=== PATIENT | female | born 1940 | race Caucasian/White ===

== ENCOUNTER 2018-02-11 01:52 | Outpatient (CLI) | payer MEDICARE, SELFPAY ==
[2018-02-11 09:44] LABS: ALT 25 U/L (12-78); AST 18 U/L (15-37); Albumin 3.9 g/dL (3.4-5.0); Alkaline Phosphatase 52 U/L (46-116); Anion Gap 8.3 mmol/L (3-11); BUN 28 mg/dL (7-18); Bilirubin, Total 0.5 mg/dL (0.2-1.0); CO2 30.7 mmol/L (21.0-32.0); CREATININE 1.33 mg/dL (0.55-1.02); Calcium 9.4 mg/dL (8.5-10.1); Chloride 98 mmol/L (98-107); Estimated GFR 38.89 (mL/min/1.73m2); Glucose 79 mg/dL (70-100); Potassium 3.8 mmol/L (3.5-5.1); Sodium 137 mmol/L (136-145); Total Protein 6.2 g/dL (6.4-8.2)
== END 2018-02-11 02:12 ==
PROVIDERS: PCP Internal Medicine; Visit Provider Nurse Practitioner
DX: I42.0 Dilated cardiomyopathy (principal); I50.22 Chronic systolic (congestive) heart failure
CPT/HCPCS: 36415; 80053

== ENCOUNTER 2018-06-04 02:13 | Outpatient (CLI) | payer MEDICARE, SELFPAY | END 2018-06-04 02:33 | PROVIDERS: PCP Internal Medicine; Visit Provider Internal Medicine Rheumatology | DX: M1A.9XX1 Chronic gout, unspecified, with tophus (tophi) (principal) | CPT/HCPCS: 36415; 84550 ==

== ENCOUNTER 2018-06-25 07:05 | Outpatient (CLI) | payer MEDICARE, SELFPAY ==
--- NOTE | 2018-06-24 15:30 | DI.RAD_ITS ---
SYMPTOM/DIAGNOSIS: INJURY, RT SHOULDER PAIN, M25.511 RIGHT SHOULDER: The bony structures are normally mineralized. There are mild degenerative changes involving the glenohumeral and AC joint. There is a region of apparent undersurface acromial spurring. There is no evidence of a fracture or dislocation. If there is further specific clinical question regarding the status of this patient, then further assessment with MRI could be considered.
== END 2018-06-25 07:25 ==
PROVIDERS: PCP Internal Medicine; Visit Provider Internal Medicine
DX: M25.511 Pain in right shoulder (principal); M19.011 Primary osteoarthritis, right shoulder
CPT/HCPCS: 73030

== ENCOUNTER 2018-06-29 07:02 | Outpatient (CLI) | payer MEDICARE, SELFPAY ==
[2018-06-29 08:21] LABS: Abs Immature Grans 0.01 k/cumm (0.0-0.09); Absolute Basophil Count 0.02 k/cumm (0.0-0.2); Absolute Eosinophil Count 0.22 k/cumm (0.0-0.7); Absolute Lymphocyte Count 2.42 k/cumm (1.2-3.4); Absolute Neutrophil Count 3.05 k/cumm (1.2-6.7); Basophils % 0.3; Eosinophils % 3.4; HCT 39.1 % (36.0-46.0); HGB 12.8 g/dL (12.0-15.5); Immature Grans % 0.2; Lymphocytes % 37.1; Mean Corp. HGB Concentration 32.7 g/dL (32.0-36.0); Mean Corpuscular Hemoglobin 31.6 pg (27.0-33.0); Mean Corpuscular Volume 96.5 fL (80-95); Mean Platelet Volume 10.2 fL (8.0-11.0); Monocytes % 12.3; Neutrophils % 46.7; Platelet Count 130 x1000/uL (130-400); RBC 4.05 m/cumm (4.00-5.20); RBC Distribution Width 13.2 % (11.7-14.6); White Blood Cell Count 6.52 k/cumm (4.4-10.8)
[2018-06-29 08:59] LABS: Cholesterol 233 mg/dL (50-200); HDL Cholesterol 62 mg/dL (40-60); LDL CHOLESTEROL 139 mg/dL (<100); Triglyceride 175 mg/dL (30-150)
== END 2018-06-29 07:22 ==
PROVIDERS: PCP Internal Medicine; Visit Provider Internal Medicine
DX: E78.5 Hyperlipidemia, unspecified (principal); R79.89 Other specified abnormal findings of blood chemistry
CPT/HCPCS: 36415; 80061; 83721; 85025

== ENCOUNTER 2018-10-09 07:56 | Outpatient (CLI) | payer MEDICARE, SELFPAY ==
[2018-10-09 09:19] LABS: Uric Acid 7.4 mg/dL (2.6-6.0)
== END 2018-10-09 08:16 ==
PROVIDERS: PCP Internal Medicine; Visit Provider Internal Medicine
DX: M1A.9XX1 Chronic gout, unspecified, with tophus (tophi) (principal); Z51.81 Encounter for therapeutic drug level monitoring
CPT/HCPCS: 36415; 84550

== ENCOUNTER 2019-01-06 15:59 | Outpatient (CLI) | payer MEDICARE, SELFPAY ==
--- NOTE | 2019-01-06 15:15 | DI.RAD_ITS ---
EXAM: XR ELBOW LT COMPLETE AND LT SHOULDER INDICATION: pain, R52. COMPARISON: XR SHOULDER LT COMPLETE 2+V from 01/06/2019 XR SHOULDER LT COMPLETE 2+V from 01/06/2019 TECHNIQUE: 2D digital imaging was performed. FINDINGS: Three views were obtained. There is prominent anterior and posterior humeral fat pad consistent with an elbow joint effusion or hemarthrosis. No acute fracture identified. There are osteophytes of me dial and lateral epicondyles. No other bony abnormality seen. Five views of the shoulder were obtained. There are moderate hypertrophic changes of the acromioclavi cular joint and there is a prominent inferior acromial spur raising the possibility of supraspinatus impingement. Cartilaginous joint space of the glenohumeral joint appears fairly well maintained. Mild marginal osteophyte formation of the glenoid and humeral head noted IMPRESSION: DJD of glenohumeral and acromioclavicular joints, question supraspinatus impingement.
== END 2019-01-06 16:19 ==
PROVIDERS: PCP Internal Medicine; Visit Provider Internal Medicine
DX: M25.512 Pain in left shoulder (principal); M25.522 Pain in left elbow; M19.012 Primary osteoarthritis, left shoulder; M25.422 Effusion, left elbow
CPT/HCPCS: 73030; 73080

== ENCOUNTER 2019-01-25 10:21 | Emergency (ER) | payer MEDICARE, SELFPAY ==
[2019-01-25] VITALS (28 sets, daily range): BP systolic 101–119; BP diastolic 33–70; PULSE 54–92; RESP 11–30; TEMP 36.5–37.1; O2SAT 92–99
--- NOTE | 2019-01-25 10:35 | W.ED.GENAD ---
Discharge Plan Disposition Patient Disposition: HOME Condition: Good Discharge Details Chief Complaint: Abd Prob Clinical Impression: Abdominal pain, Nausea, Thrombocytopenia Primary Care Provider: Lilibeth Tate ED Provider: Tawanna Trjeo Smackover Meds and New Rx's Prescriptions: New ondansetron 4 mg tablet,disintegrating 4 mg PO Q6H PRN (Reason: nausea and vomiting) Qty: 10 RF: 0 Continued amoxicillin 500 mg capsule 2,000 mg PO PRN RF: 0 prednisone 5 mg tablet 5 mg PO DAILY Qty: 90 RF: 2 carvedilol [Coreg] 6.25 MG tablet 6.25 mg PO BID Qty: 180 RF: 4 aspirin [Aspir-81] 81 MG tablet,delayed release (DR/EC) 81 mg PO DAILY RF: 0 spironolactone [Aldactone] 25 MG tablet 25 mg PO DAILY Qty: 90 RF: 4 acetaminophen [Tylenol] 325 MG tablet 325 mg PO PRN RF: 0 ezetimibe [Zetia] 10 MG tablet 10 mg PO DAILY RF: 0 Entresto 1 EACH tablet 1 ea PO BID RF: 0 furosemide [Lasix] 40 mg tablet 40 mg PO 1-2 daily Qty: 180 RF: 4 cholecalciferol (vitamin D3) [Vitamin D3] 2,000 unit Tablet 2,000 unit PO DAILY RF: 0 Discontinued febuxostat [Uloric] 80 mg tablet 80 mg PO DAILY RF: 0 No Action febuxostat [Uloric] 80 mg tablet 80 mg PO DAILY RF: 0 esomeprazole magnesium [Nexium] 40 mg capsule,delayed release(DR/EC) 40 mg PO DAILY Qty: 30 RF: 2 ranitidine HCl 300 mg capsule 300 mg PO QHS Qty: 30 RF: 1 sucralfate 100 mg/mL suspension 5 ml PO QID Qty: 420 RF: 2 Discharge Instructions Instructions: Acute Nausea and Vomiting (ED), Abdominal Pain (ED) Additional Instructions: Encourage hydration. You may use Tylenol as needed for discomfort. You may use the Zofran as prescribed to help with any recurrent nausea. Advance diet as tolerated but these begin with bland foods. Please call primary care today to schedule appointment for Friday. Dr. Coleman and I discussed possible source and agree that you should hold off on your febuxostat until being reevaluated. If you develop increased pain, fever/chills, inability stay hydrated or other new/worsening symptoms please seek care urgently once again. Referrals: Lilibeth Tate MD [Primary Care Provider] - Discharge Data Discharge Date/Time-TO BE ENTERED AT DEPARTURE: 01/25/19 16:28 Medical Decision Making Patient 78-year-old female, accompanied by friend, with chief complaint of abdominal discomfort for the past week. She has history of cardiomyopathy, hyperlipidemia, kidney disease, ICD placed, tophaceous gout and tubular adenoma. States that she has had some generalized abdominal irritation after increasing her dosing of febuxostat 2 months ago. However, the past week she is noted to be worse than typical and never treated over the past 3 days her bloating and abdominal discomfort has been quite bothersome. No change in her diet. She has noted increased bilateral lower extremity edema but associates this with increased salt intake. She does report that she has not been following her dietary restrictions recently. She denies any fevers or chills. Surgical history pertinent for cholecystectomy and appendectomy. No change in bowel habits. Normal bowel movement yesterday. No blood in the. No change in urinary habits. No CVA tenderness. On exam, she is resting comfortably. She has bilateral upper quadrants of her abdomen is area of discomfort but no peritoneal findings are noted on exam. When she does feel bloated, she is not tympanitic in order to appreciate any bloating on physical exam. No CVA tenderness. Minimal lower extremity edema. At this point, her symptoms seem to be stemming around increase in medication. We will review the medication to see if this may be the source of her discomfort. Will obtain baseline labs. Labs reviewed. Patient is not anemic. Her platelet count is slightly low at 105. This is new for the patient. Her creatinine is 1.41 but this is not atypical. Urine without significant abnormality. Plan for CT imaging. She is now reporting that her pain is actually worse than she had initially reported and she is currently nauseated. Will give Zofran to help with symptomatic management and plan for imaging. CT reviewed by radiologist: FINDINGS: The lung bases are unremarkable. Pacing wires are identified in place. The heart is not enlarged. The liver is intact. The patient is status post cholecystectomy. The pancreas, spleen, kidneys and adrenals are unremarkable. There is no evidence of bowel obstruction. There is no evidence of an acute appendix. The bladder is normal. The reproductive organs as visualized are intact. There are small bilateral fat-containing inguinal hernias. Also a small umbilical hernia contains a small loop of colon; there is no evidence of strangulation. Surgical clips in this region would be consistent with a previous hernia repair. There is atherosclerotic change involving the aorta, the celiac and superior mesenteric arteries. There is no evidence of an aneurysm. Degenerative changes are demonstrated in the spine. No acute abnormality is seen. IMPRESSION: No acute abnormality is seen. Note is made of a small umbilical hernia, which contains a loop of colon with no evidence of strangulation. As the patient believes that this is associated with the increase in her febuxostat, plan to consult with PCP about reducing the dosing again. She had good relief from the zofran and will continue her on this medication. Consulted with Dr. Polo who advised that the patient skip the medication for the next 2 days and follow up with her at that time. Is able to the patient's primary care who advised patient had been on this medication historically had similar symptoms when the medication was increased at that time. She advised actually holding medication altogether until she can reevaluate the patient in 2 days time. I discussed this plan with the patient. Encourage hydration. She is given strict return precautions. We will continue with Zofran to help with any recurrence of her nausea or vomiting. Primary care is advises that she has multiple appointments available in 2 days and is asked the patient call to schedule for a time. All of her questions and concerns were addressed and patient is in agreement this plan. HPI General Mode of arrival: ambulatory. Date/Time Provider Initiated Documentation: 01/25/19 10:34. Limitations to Documentation: no limitations. Information obtained by: patient and RN notes reviewed. History of Present Illness 78 year old F presents to the emergency department with the chief complaint of upper abdominal pain and bloating, described as moderate, with intensity rated at 3. Quality is described as aching, and is localized to the abdomen. Patient reports no radiation. Patient started experiencing this week(s) (1) and it has been constant. No relieving factors improve symptom(s), No exacerbating factors reported . Patient notes denies chest pain, cough, diaphoresis, fever/chills, headaches, loss of appetite, nausea/vomiting, rash, shortness of breath and weakness. Patient did receive the following treatments prior to arrival, none Related Data Home Medications Medication Instructions Recorded Confirmed aspirin [Aspir-81] 81 mg PO DAILY tab-cap 08/21/12 01/27/19 carvedilol [Coreg] 6.25 mg PO BID #180 tab-cap 08/21/12 01/27/19 spironolactone [Aldactone] 25 mg PO DAILY #90 tab-cap 08/21/12 01/27/19 acetaminophen [Tylenol] 325 mg PO PRN 08/22/12 01/27/19 Entresto 1 ea PO BID 07/29/16 01/27/19 ezetimibe [Zetia] 10 mg PO DAILY tab-cap 07/29/16 01/27/19 furosemide 40 mg tablet 40 mg PO 1-2 daily #180 tab-cap 02/24/18 01/27/19 amoxicillin 500 mg capsule 2,000 mg PO PRN cap 12/02/18 01/27/19 prednisone 5 mg tablet 5 mg PO DAILY #90 tab-cap 12/02/18 01/27/19 cholecalciferol (vitamin D3) 2,000 unit PO DAILY 01/25/19 01/27/19 [Vitamin D3] ondansetron 4 mg PO Q6H PRN #10 tab 01/25/19 01/27/19 esomeprazole magnesium 40 mg 40 mg PO DAILY #30 cap 01/27/19 01/27/19 capsule,delayed release febuxostat 80 mg tablet 80 mg PO DAILY 01/27/19 01/27/19 ranitidine HCl 300 mg capsule 300 mg PO QHS #30 cap 01/27/19 01/27/19 sucralfate 100 mg/mL oral 5 ml PO QID #420 ml 01/27/19 01/27/19 suspension Previous Rx's Medication Instructions Recorded furosemide 40 mg tablet 40 mg PO 1-2 daily #180 tab-cap 02/24/18 prednisone 5 mg tablet 5 mg PO DAILY #90 tab-cap 12/02/18 ondansetron 4 mg PO Q6H PRN #10 tab 01/25/19 esomeprazole magnesium 40 mg 40 mg PO DAILY #30 cap 01/27/19 capsule,delayed release ranitidine HCl 300 mg capsule 300 mg PO QHS #30 cap 01/27/19 sucralfate 100 mg/mL oral 5 ml PO QID #420 ml 01/27/19 suspension Allergies Allergy/AdvReac Type Severity Reaction Status Date / Time allopurinol Allergy Intermediate Verified 01/27/19 15:08 Gqeeync-Pek-Pgn Reductase AdvReac Severe Muscle pain Verified 01/27/19 15:08 Inhibitor codeine AdvReac Intermediate HALLUCINATI Verified 01/27/19 15:08 ONS General Stated Complaint: Abd Prob NICOLE: 3 Review of Systems Constitutional Constitutional: Reports as per HPI, Denies chills, Denies fatigue, Denies fever(s) and Denies headache(s) ENT Ears, Nose, Mouth, and Throat: Denies headache(s) Cardiovascular Cardiovascular: Reports as per HPI, Denies chest pain and Denies dyspnea Respiratory Respiratory: Reports as per HPI, Denies cough and Denies dyspnea Gastrointestinal Gastrointestinal: Reports as per HPI Musculoskeletal Musculoskeletal: Reports as per HPI and Denies back pain Integumentary/Breasts Skin/Breast: Reports as per HPI and Denies rash Neurologic Neurologic: Reports as per HPI and Denies headache(s) Endocrine Endocrine: Denies fatigue [facility] Medical History Seborrheic keratoses (Acute) Surgical History Appendectomy (~1972) Cholecystectomy herniography x 2 Replacement of total knee joint Family History Mother , OLD AGE at age 98. Heart disease Father , 62 Heart disease Stroke Sister Heart disease CHF Neoplasm OVARIAN Sister , 72 CHF (congestive heart failure) Sister Diabetes Depression Stroke Brother Hyperlipidemia Colon cancer Brother Colon cancer Brother , HEART PROBLEMS at age 81. Heart disease CHF (congestive heart failure) Hypertension Maternal Grandfather , reaction to aspirin at age 71. Asthma Paternal Grandfather Heart disease Maternal Grandmother , Ruptured appendix at age 63. Ruptured appendix Paternal Grandmother , Infection s/p surgery at age 44. No problems noted. Son Essential hypertension Hyperlipidemia Son Essential hypertension Hyperlipidemia Parkinson disease Son Essential hypertension Hyperlipidemia Son No problems noted. Son Myocardial infarction Daughter No problems noted. Social History Smoking/Tobacco Use Status: Never Alcohol Intake: never Drug use: Never Substance use type: does not use Caregiver/Support person: No Household members: spouse and children Pets and animals: No Sexually active: No Current gender identity: decline to answer What is your relationship status?: How often do you talk on the phone with friends or family?: three or more times per week How often do you get together with friends or relatives?: never How often do you attend mormonism or jehovah's witness services?: decline to answer Do you belong to any clubs or organized social groups?: decline to answer Panel score (0-1 are the most socially isolated patients): 2 What type of physical activity do you participate in: none Duration: decline to answer Frequency: decline to answer Geri/Mormonism: Restorationism Special geri needs: No Seatbelt use: always Drive intox or ride w/intox skidder driver: No Do you feel safe at home: Yes Do you feel safe in your relationship?: Yes Additional Social history: lives with friend daughter nearby Exam Const General: cooperative, healthy appearing, comfortable, no acute distress and well developed Nutritional Appearance: well nourished and overweight Orientation: alert and awake HENRI Head: normal to inspection Mouth: moist mucous membranes Resp Effort & Inspection: normal respiratory effort, able to speak in complete sentences and no respiratory distress Auscultation: clear to auscultation bilaterally, no rales, no rhonchi and no wheezes Cardio Rate: regular rate Rhythm: regular rhythm Heart Sounds: S1 normal and S2 normal GI Inspection: normal to inspection, no abdominal wall ecchymosis, no edema, non-distended, no incisions and obesity Palpation: soft, no hepatosplenomegaly, no aortic enlargement, not firm, no guarding, no hernias, no masses, not rigid, no splenomegaly, tender in the LUQ and in the RUQ; Katz's sign negative and with no rebound tenderness and No ascites Percussion: normal to percussion Auscultation: normal bowel sounds Back/Spine/Pelvis Back: no CVA tenderness Skin General skin exam: no rashes or lesions noted Trauma: no lacerations or abrasions Neuro General: alert and awake Cognition: normal cognition Speech: speech normal Gait: normal gait Extrem General: normal to inspection, normal capillary refill, no joint enlargement, no pedal edema, no calf tenderness and normal gait Psych Appearance: grossly normal and well kempt Mental Status: mental status grossly normal Speech and Movement: speech and movement normal Course Vital Signs Vital signs: Vital Signs Temperature 36.5 C 01/25/19 10:29 Pulse 92 H 01/25/19 10:29 Respiratory Rate 20 01/25/19 10:29 Blood Pressure 116/70 01/25/19 10:29 Pulse Oximetry 99 01/25/19 10:29 Temperature 36.5 C 01/25/19 10:29 Temperature Source Skin 01/25/19 10:29 Pulse 92 H 01/25/19 10:29 Respiratory Rate 20 01/25/19 10:29 Blood Pressure 116/70 01/25/19 10:29 Pulse Oximetry 99 01/25/19 10:29 Oxygen Delivery Method Room Air 01/25/19 10:29 Oxygen Flow Rate 0 01/25/19 10:29 Pain Level 3 01/25/19 10:29
[2019-01-25] MEDS: Normal Saline Flush 10 ML SYR IVP (10:50)
[2019-01-25] MEDS: Normal Saline 1,000 ML 125 ML IV (11:00)
[2019-01-25 11:04] LABS: Abs Immature Grans 0.07 k/cumm (0.0-0.09); Absolute Basophil Count 0.02 k/cumm (0.0-0.2); Absolute Lymphocyte Count 1.95 k/cumm (1.2-3.4); Absolute Monocyte Count 1.51 k/cumm (0.11-0.7); Basophils % 0.2; Eosinophils % 1.6; HGB 13.9 g/dL (12.0-15.5); Immature Grans % 0.6; Lymphocytes % 17.9; Mean Corp. HGB Concentration 33.1 g/dL (32.0-36.0); Mean Corpuscular Hemoglobin 31.5 pg (27.0-33.0); Mean Corpuscular Volume 95.2 fL (80-95); Mean Platelet Volume 10.3 fL (8.0-11.0); Monocytes % 13.8; Neutrophils % 65.9; Platelet Count 105 x1000/uL (130-400); RBC 4.41 m/cumm (4.00-5.20); RBC Distribution Width 13.5 % (11.7-14.6); White Blood Cell Count 10.91 k/cumm (4.4-10.8)
[2019-01-25 11:07] LABS: Absolute Eosinophil Count 0.17 k/cumm (0.0-0.7); Absolute Neutrophil Count 7.19 k/cumm (1.2-6.7)
[2019-01-25 11:16] LABS: ALT 19 U/L (14-59); AST 20 U/L (15-37); Albumin 3.8 g/dL (3.4-5.0); Alkaline Phosphatase 33 U/L (46-116); BUN 43 mg/dL (7-18); Bilirubin, Total 0.6 mg/dL (0.2-1.0); CREATININE 1.41 mg/dL (0.55-1.02); Calcium 9.5 mg/dL (8.5-10.1); Chloride 101 mmol/L (98-107); Estimated GFR 36.26 (mL/min/1.73m2); Glucose 74 mg/dL (70-100); Lipase 393 U/L (73-393); Potassium 3.8 mmol/L (3.5-5.1); Sodium 140 mmol/L (136-145); Total Protein 6.3 g/dL (6.4-8.2)
[2019-01-25 11:26] LABS: Diff Comment Diff Reviewed; RBC Morphology Normal
[2019-01-25 12:05] LABS: Bilirubin Negative (Negative); Blood Negative (Negative); Clarity Clear (Clear); Glucose Negative (Negative); Ketones Negative (Negative); Leukocyte Esterase Negative (Negative); Nitrite Negative (Negative); Urobilinogen 0.2 EU/dL (Up TO 0.2); pH 5.5 (5-8)
--- NOTE | 2019-01-25 12:46 | DI.CT_ITS ---
EXAM: CT ABDOMEN PELVIS WO CLINICAL HISTORY: upper abdominal pain. TECHNIQUE: The examination was carried out without contrast enhancement. COMPARISON: No exams were available for comparison FINDINGS: The lung bases are unremarkable. Pacing wires are identified in place. The heart is not enlarged. T he liver is intact. The patient is status post cholecystectomy. The pancreas, spleen, kidneys and adr enals are unremarkable. There is no evidence of bowel obstruction. There is no evidence of an acute appendix. The bladder is normal. The reproductive organs as visualized are intact. There are small bilateral fat-containing inguinal hernias. Also a small umbilical hernia contains a small loop of co jes; there is no evidence of strangulation. Surgical clips in this region would be consistent with a previous hernia repair. There is atherosclerotic change involving the aorta, the celiac and superio r mesenteric arteries. There is no evidence of an aneurysm. Degenerative changes are demonstrated i n the spine. No acute abnormality is seen. IMPRESSION: No acute abnormality is seen. Note is made of a small umbilical hernia, which contains a loop of colo n with no evidence of strangulation.
[2019-01-25] MEDS: Ondansetron 4 MG/2 ML VIAL IVP (12:51)
[2019-01-25 16:28] LABS: NT-proBNP 2855 pg/mL
== END 2019-01-25 16:28 | disposition home or self-care (01) ==
PROVIDERS: Nurse Practitioner; Emergency Provider Physician Assistant; PCP Internal Medicine
DX: R10.11 Right upper quadrant pain (principal); R10.12 Left upper quadrant pain; R11.0 Nausea; D69.6 Thrombocytopenia, unspecified
CPT/HCPCS: 80053; 83690; 96374; 99285; 74176; 81003; 83880; 85025; 99284; J2405

== ENCOUNTER 2019-01-29 09:47 | Emergency (ER) | payer MEDICARE, SELFPAY ==
[2019-01-29] VITALS (31 sets, daily range): BP systolic 95–116; BP diastolic 42–58; PULSE 74–88; RESP 18–20; TEMP 36.3; O2SAT 85–97
[2019-01-29] MEDS: Normal Saline 1,000 ML 1000 ML IV (10:46)
--- NOTE | 2019-01-29 10:48 | ED.GENADUL_ITS ---
Discharge Plan Disposition Patient Disposition: HOME Condition: Improving Discharge Details Chief Complaint: Abd Prob Clinical Impression: Abdominal pain Primary Care Provider: Lilibeth Tate ED Provider: Skye Horta Home Meds and New Rx's Prescriptions: No Action amoxicillin 500 mg capsule 2,000 mg PO PRN RF: 0 prednisone 5 mg tablet 5 mg PO DAILY Qty: 90 RF: 2 esomeprazole magnesium [Nexium] 40 mg capsule,delayed release(DR/EC) 40 mg PO DAILY Qty: 30 RF: 2 ranitidine HCl 300 mg capsule 300 mg PO QHS Qty: 30 RF: 1 sucralfate 100 mg/mL suspension 5 ml PO QID Qty: 420 RF: 2 carvedilol [Coreg] 6.25 MG tablet 6.25 mg PO BID Qty: 180 RF: 4 aspirin [Aspir-81] 81 MG tablet,delayed release (DR/EC) 81 mg PO DAILY RF: 0 spironolactone [Aldactone] 25 MG tablet 25 mg PO DAILY Qty: 90 RF: 4 acetaminophen [Tylenol] 325 MG tablet 325 mg PO PRN RF: 0 ezetimibe [Zetia] 10 MG tablet 10 mg PO DAILY RF: 0 Entresto 1 EACH tablet 1 ea PO BID RF: 0 furosemide [Lasix] 40 mg tablet 40 mg PO 1-2 daily Qty: 180 RF: 4 cholecalciferol (vitamin D3) [Vitamin D3] 2,000 unit Tablet 2,000 unit PO DAILY RF: 0 ondansetron 4 mg tablet,disintegrating 4 mg PO Q6H PRN (Reason: nausea and vomiting) Qty: 10 RF: 0 Discharge Instructions Instructions: Abdominal Pain (ED) Additional Instructions: Continue your medications prescribed by your primary care doctor 2 days ago. Use nausea medication as prescribed as discussed. Continue to drink plenty of fluids by mouth. Return for any worsening, concerns or alarming symptoms sooner if needed. Your CT scan is reassuring as well as your lab evaluation. Follow-up with your primary care doctor as scheduled on Friday. Return to the emergency room sooner for any worsening or concerns if needed or for difficulty eating or drinking or signs of dehydration as discussed Medical Decision Making Is a very pleasant 78-year-old woman who returns to the emergency room for persistent abdominal pain. Patient reports increase in her abdominal pain in th e left upper quadrant. Patient reports she was seen in the emergency room 4 days ago for very similar complaints during which they evaluated her with CT as well as blood work. Ultimately, her abdominal pain was attributed to increase in her gout medication. Patient reports she has discontinued the gout medication and did follow-up with her primary care doctor. PCP began ulcer medications and reflux medications which she is been with compliant with for the last 2 days. Patient denies fever or chills. Denies chest pain, shortness of breath, difficulty breathing. Pain is worse with range of motion and attempting to eat. Patient reports nausea and dry heaving for the last few days 2-3 times a day does feel mildly dehydrated. Patient does have nausea medication at home which she has not been taking. Denies abdominal distention. Does report mild decrease in bowel movements in the last 3 days yet has had less p.o. intake. Mild fatigue. We will repeat patient CT with IV contrast as her initial CT study was done Noncon given her kidney function. Discussed patient's current renal function with my attending who does feels appropriate to perform her CT with IV contrast. Labs evaluated including repeat CBC, CMP and lipase. Will add troponin to be sure there is no elevation of her troponin today. Patient's EKG is quite reassuring. Normal rate and sinus rhythm. Normal IL in terval and QTc. No ischemic changes noted on EKG. Reviewed with my attending Dr. Man CT scan ultimately reveals Note is again made of pacer wires in the heart and epicardium. Lung bases are clear. Large hiatal hernia noted. Small fat containing umbilical hernia with knuckle of unobstructed transverse colon. No change in appearance from examination of 01/25/2019. No evidence of bowel obstruction. Appendix not specifically visualized but there is no evidence of appendicitis. Diverticulosis noted without evidence of diverticulitis. Clinical Study Manager structures unremarkable. No free fluid in the peritoneal cavity. Abdominal aorta is of normal diameter. Adrenals and kidneys unremarkable. No urinary tract calcification or obstruction. Liver spleen and pancreas appear normal. Ga llbladder surgically removed. No biliary dilatation. No abdominal or pelvic adenopathy. Multiple midline anterior abdominal wall sutures noted. IMPRESSION: No evidence of acute intra-abdominal process. Lab work reassuring today. No leukocytosis. Platelets decreased yet improved from previous evaluation. Urinalysis does reveal trace leukocyte esterase without nitrites. Urine culture pending. On reevaluation patient reports her pain is significantly improved. Patient received IV fluid and does feel much better. On exam she does have very mild persistent left upper quadrant pain but her exam is again significantly improved. Patient feels comfortable for discharge home at this time. Patient was offered admission to the hospital given this is her second evaluation in the emergency room this week for similar complaints but she does not feel she needs admission to the hospital at this time. She does have follow-up with her PCP planned for Friday. She has appropriate nausea medication at home. The patient was stable and requested discharge. Prior to discharge, my usual and customary return precautions were reviewed with the patient - this included follow-up ins tructions and reasons to return to the Emergency Department if conditions worsens, does not improve as expected, or other new concerns arise. HPI General Date/Time Provider Initiated Documentation: 01/29/19 09:48 . HPI Narrative: Is a 78-year-old lady who returns to the emergency room after having evaluation 4 days ago for persistent left-sided abdominal pain. Patient reports left-sided abdominal pain which is becoming increasingly intense. Patient reports nausea and dry heaving for the last few days which has persisted. Patient was seen in the emergency room recently underwent CT as well as labs no clear identifiable intra-abdominal process noted with Noncon CT. Patient had increased her gout medication which was considered a possible etiology of her symptoms, that medication has been discontinued. Patient reports after discontinuing the medication no significant improvement in her symptoms. She does report worsening abdominal pain, mild fatigue. Denies headache or dizziness. Patient denies fever or chills. Patient denies back pain associated. Denies any urin todd urgency, frequency or dysuria. Patient does report mild constipation for the last few days but has had decrease in appetite. Pain does wax and wane but in the last few days does not resolve. Worse with range of motion and change in position. Improved with supine position. Denies chest pain, difficulty breathing shortness of breath or wheezing. Was seen by cardiology in the last few days, no new acute concerns per her make up man at that time. Related Data Home Medications Medication Instructions Recorded Confirmed aspirin [Aspir-81] 81 mg PO DAILY tab-cap 08/21/12 01/29/19 carvedilol [Coreg] 6.25 mg PO BID #180 tab-cap 08/21/12 01/29/19 spironolactone [Aldactone] 25 mg PO DAILY #90 tab-cap 08/21/12 01/29/19 acetaminophen [Tylenol] 325 mg PO PRN 08/22/12 01/29/19 Entresto 1 ea PO BID 07/29/16 01/29/19 ezetimibe [Zetia] 10 mg PO DAILY tab-cap 07/29/16 01/29/19 furosemide 40 mg tablet 40 mg PO 1-2 daily #180 tab-cap 02/24/18 01/29/19 amoxicillin 500 mg capsule 2,000 mg PO PRN cap 12/02/18 01/29/19 prednisone 5 mg tablet 5 mg PO DAILY #90 tab-cap 12/02/18 01/29/19 cholecalciferol (vitamin D3) 2,000 unit PO DAILY 01/25/19 01/29/19 [Vitamin D3] ondansetron 4 mg PO Q6H PRN #10 tab 01/25/19 01/29/19 esomeprazole magnesium 40 mg 40 mg PO DAILY #30 cap 01/27/19 01/29/19 capsule,delayed release ranitidine HCl 300 mg capsule 300 mg PO QHS #30 cap 01/27/19 01/29/19 sucralfate 100 mg/mL oral 5 ml PO QID #420 ml 01/27/19 01/29/19 suspension Previous Rx's Medication Instructions Recorded furosemide 40 mg tablet 40 mg PO 1-2 daily #180 tab-cap 02/24/18 prednisone 5 mg tablet 5 mg PO DAILY #90 tab-cap 12/02/18 ondansetron 4 mg PO Q6H PRN #10 tab 01/25/19 esomeprazole magnesium 40 mg 40 mg PO DAILY #30 cap 01/27/19 capsule,delayed release ranitidine HCl 300 mg capsule 300 mg PO QHS #30 cap 01/27/19 sucralfate 100 mg/mL oral 5 ml PO QID #420 ml 01/27/19 suspension Allergies Allergy/AdvReac Type Severity Reaction Status Date / Time allopurinol Allergy Intermediate Verified 01/29/19 09:56 Opsasgc-Ish-Xes Reductase AdvReac Severe Muscle pain Verified 01/29/19 09:56 Inhibitor codeine AdvReac Intermediate HALLUCINATI Verified 01/29/19 09:56 ONS General Stated Complaint: Abd Prob NICOLE: 3 Review of Systems All systems reviewed & are unremarkable except as noted in HPI and below Constitutional Constitutional: Denies chills, Reports fatigue, Denies fever(s) and Denies headache(s) ENT Ears, Nose, Mouth, and Throat: Denies headache(s) Cardiovascular Cardiovascular: Denies chest pain and Denies syncope Gastrointestinal Gastrointestinal: Reports abdominal pain, Reports constipation, Reports cramping, Denies loose stools, Reports nausea and Reports vomiting Genitourinary Genitourinary: Denies dysuria and Denies urinary urgency Neurologic Neurologic: Denies syncope and Denies headache(s) Endocrine Endocrine: Reports fatigue PFSH Family History Mother , OLD AGE at age 98. Heart disease Father , 62 Heart disease Stroke Sister Heart disease CHF Neoplasm OVARIAN Sister , 72 CHF (congestive heart failure) Sister Diabetes Depression Stroke Brother Hyperlipidemia Colon cancer Brother Colon cancer Brother , HEART PROBLEMS at age 81. Heart disease CHF (congestive heart failure) Hypertension Maternal Grandfather , reaction to aspirin at age 71. Asthma Paternal Grandfather Heart disease Maternal Grandmother , Ruptured appendix at age 63. Ruptured appendix Paternal Grandmother , Infection s/p surgery at age 44. No problems noted. Son Essential hypertension Hyperlipidemia Son Essential hypertension Hyperlipidemia Parkinson disease Son Essential hypertension Hyperlipidemia Son No problems noted. Son Myocardial infarction Daughter No problems noted. Social History Smoking/Tobacco Use Status: Never Alcohol Intake: never Drug use: Never Substance use type: does not use Caregiver/Support person: No Household members: spouse and children Pets and animals: No Sexually active: No Current gender identity: decline to answer What is your relationship status?: How often do you talk on the phone with friends or family?: three or more times per week How often do you get together with friends or relatives?: never How often do you attend buddhist or yarsani services?: decline to answer Do you belong to any clubs or organized social groups?: decline to answer Panel score (0-1 are the most socially isolated patients): 2 What type of physical activity do you participate in: none Duration: decline to answer Frequency: decline to answer Geri/Yazdanism: Episcopal Special geri needs: No Seatbelt use: always Drive intox or ride w/intox transport truck driver: No Do you feel safe at home: Yes Do you feel safe in your relationship?: Yes Additional Social history: lives with friend daughter nearby Exam Narrative Exam Narrative: CONST: Healthy appearing patient, in no acute distress. Well hydrated. Alert and alert. HENMT: Head nomocephalic, normal to inspection. Atraumatic. Hearing grossly normal. Mildly dry mucous membranes. No pharyngeal erythema EYES: General normal appearance. Alignment normal. Eyelids normal. Conjunctiva normal. NECK: Normal visual inspection. FROM. No lymphadenopathy. Trachea midline. No Midline tenderness. CHEST: Normal insepection of the chest. RESP: Normal respiratory effort. Speaking full sentences. No cough. No wheezing. No retractions. Clear to auscaltation. Breath sound equal and present bilaterally. CARDIO: No JVD. Normal PMI. Regular Rate. Regular Rhythm. Normal peripheral pulses. GI: Normal inspection of abdomen. No distension. Soft. Bowel sounds present in all 4 quadrants. Mild abdominal pain with palpation of the left upper quadrant. No rebound. No gaurding. MUSCULOSKELETAL: Normal Gait. FROM of all extremities. Distal neurovascularly intact. Sensation intact distally. SKIN: Normal. Dry. No rashes. NEURO: Alert and awake. Speech clear. PSYCH: Normal affect. Cooperative. Course Vital Signs Vital signs: Vital Signs Temperature 36.3 C L 01/29/19 09:52 Pulse 83 01/29/19 09:52 Respiratory Rate 18 01/29/19 09:52 Blood Pressure 99/51 L 01/29/19 09:52 Pulse Oximetry 95 01/29/19 09:52 Temperature 36.3 C L 01/29/19 09:52 Temperature Source Skin 01/29/19 09:52 Pulse 83 01/29/19 09:52 Respiratory Rate 18 01/29/19 09:52 Respiratory Effort 01/29/19 09:57 Blood Pressure 99/51 L 01/29/19 09:52 Pulse Oximetry 95 01/29/19 09:52 Oxygen Delivery Method Room Air 01/29/19 09:52 Oxygen Flow Rate 0 01/29/19 09:52 Pain Level 8 01/29/19 09:57
[2019-01-29 11:04] LABS: Abs Immature Grans 0.03 k/cumm (0.0-0.09); Absolute Basophil Count 0.02 k/cumm (0.0-0.2); Absolute Eosinophil Count 0.12 k/cumm (0.0-0.7); Absolute Lymphocyte Count 1.24 k/cumm (1.2-3.4); Absolute Monocyte Count 0.73 k/cumm (0.11-0.7); Absolute Neutrophil Count 6.34 k/cumm (1.2-6.7); Basophils % 0.2; Eosinophils % 1.4; HCT 41.6 % (36.0-46.0); HGB 13.8 g/dL (12.0-15.5); Immature Grans % 0.4; Lymphocytes % 14.6; Mean Corp. HGB Concentration 33.2 g/dL (32.0-36.0); Mean Corpuscular Hemoglobin 31.3 pg (27.0-33.0); Mean Corpuscular Volume 94.3 fL (80-95); Mean Platelet Volume 10.1 fL (8.0-11.0); Monocytes % 8.6; Neutrophils % 74.8; Platelet Count 113 x1000/uL (130-400); RBC 4.41 m/cumm (4.00-5.20); White Blood Cell Count 8.48 k/cumm (4.4-10.8)
[2019-01-29 11:12] LABS: PTT Activated 24.5 sec (21.0-31.4); Prothrombin Time 10.2 sec (9.3-11.0)
[2019-01-29 11:20] LABS: ALT 27 U/L (14-59); AST 19 U/L (15-37); Albumin 3.6 g/dL (3.4-5.0); Alkaline Phosphatase 33 U/L (46-116); Anion Gap 8.3 mmol/L (3-11); BUN 32 mg/dL (7-18); Bilirubin, Total 0.7 mg/dL (0.2-1.0); CO2 30.7 mmol/L (21.0-32.0); CREATININE 1.55 mg/dL (0.55-1.02); Calcium 9.3 mg/dL (8.5-10.1); Chloride 98 mmol/L (98-107); Estimated GFR 32.51 (mL/min/1.73m2); Glucose 105 mg/dL (70-100); Potassium 3.9 mmol/L (3.5-5.1); Sodium 137 mmol/L (136-145); Total Protein 6.2 g/dL (6.4-8.2)
[2019-01-29 11:21] LABS: Troponin I < 0.05 ng/mL (0.00-0.06)
--- NOTE | 2019-01-29 11:58 | DI.CT_ITS ---
EXAM: CT ABDOMEN PELVIS W CLINICAL HISTORY: abdominal pain, LUQ TECHNIQUE: CT examination of the abdomen pelvis was performed with bolus infusion of 97 cc of Omnipa que 350. COMPARISON: CT ABDOMEN PELVIS WO from 01/25/2019 FINDINGS: Note is again made of pacer wires in the heart and epicardium. Lung bases are clear. Large hiatal h ernia noted. Small fat containing umbilical hernia with knuckle of unobstructed transverse colon. N o change in appearance from examination of 01/25/2019. No evidence of bowel obstruction. Appendix n ot specifically visualized but there is no evidence of appendicitis. Diverticulosis noted without ev idence of diverticulitis. Restaurant Assistant Manager structures unremarkable. No free fluid in the peritoneal cavity. Abd ominal aorta is of normal diameter. Adrenals and kidneys unremarkable. No urinary tract calcificati on or obstruction. Liver spleen and pancreas appear normal. Gallbladder surgically removed. No jian iary dilatation. No abdominal or pelvic adenopathy. Multiple midline anterior abdominal wall sutures noted. IMPRESSION: No evidence of acute intra-abdominal process.
[2019-01-29 12:01] LABS: Lipase 146 U/L (73-393)
[2019-01-29] MEDS: Omnipaque 350 MG/ML 100 ML BTL IJ (12:33)
[2019-01-29 12:51] LABS: Bilirubin Negative (Negative); Blood Trace-intact (Negative); Clarity Clear (Clear); Glucose Negative (Negative); Ketones Negative (Negative); Leukocyte Esterase Trace (Negative); Nitrite Negative (Negative); pH 7.5 (5-8)
[2019-01-29 13:12] LABS: Bacteria Rare HPF (Negative); C & S Indicated? Yes; Casts Negative LPF (Negative); Crystals Negative HPF (Negative); Epithelial Cells Rare HPF (Negative); Mucus Negative (Negative); Other Cells Negative (Negative); RBC 0-2 (0-2)
[2019-01-29 14:10] LABS: Troponin I < 0.05 ng/mL (0.00-0.06)
== END 2019-01-29 14:54 | disposition home or self-care (01) ==
PROVIDERS: Emergency Provider Physician Assistant; PCP Internal Medicine
DX: R10.12 Left upper quadrant pain (principal)
CPT/HCPCS: 36415; 80053; 83690; 93005; 96361; 96374; 99285; 74177; 81003; 81015; 84484; 85025; 85610; 85730; 87086; 93010; J3490

== ENCOUNTER → 2019-02-11 10:20 | Outpatient (BNVA) | payer MEDICARE, SELFPAY | PROVIDERS: PCP Internal Medicine; Referring Provider Internal Medicine; Visit Provider Physical Therapy Assistant | DX: K42.9 Umbilical hernia without obstruction or gangrene (principal); K21.9 Gastro-esophageal reflux disease without esophagitis; I42.9 Cardiomyopathy, unspecified; I50.22 Chronic systolic (congestive) heart failure | CPT/HCPCS: 99213 ==

== ENCOUNTER 2019-02-27 21:20 | Emergency (ER) | payer MEDICARE, SELFPAY ==
[2019-02-27 21:30] VITALS: BP 100/59; PULSE 108; RESP 20; TEMP 36.1; O2SAT 95
--- NOTE | 2019-02-27 21:33 | DI.CT_ITS ---
EXAM: CT ABDOMEN AND PELVIS W CLINICAL HISTORY: LLQ pain, vomiting, hx of hernia TECHNIQUE: Post IV and oral contrast. COMPARISON: CT ABDOMEN AND PELVIS W from 01/29/2019 FINDINGS: Pacemaker leads are noted. Cardiomegaly is again noted. There is a calcification in the right middl e lobe. Lungs are otherwise clear. There are numerous diverticula in the sigmoid region of the colo n. There is a large amount of stranding in the surrounding fat. There are scattered bubbles of free air within the mesentery as well as anteriorly near the lower border of the liver, consistent with p erforation. There is no drainable abscess. There is an extraluminal pocket of air adjacent to the i nflamed sigmoid. There is no small bowel dilatation. The cecum is again noted to be in the right up per quadrant. There is a small hernia to the right side of an anterior abdominal wall incision conta ining a small loop of colon, which does not appear obstructing. This was present on the previous exa m. There are bilateral fatty containing inguinal hernias. The right inguinal hernia is larger and c ontains a small amount of free air as well as fluid. The uterus and bladder are unremarkable. The p atient is status post cholecystectomy. The liver, spleen, adrenals, pancreas and kidneys are unremar kable. The aorta is normal in diameter and shows atherosclerotic changes. Degenerative changes are noted in the lower thoracic and lumbar spine. IMPRESSION: Perforated sigmoid diverticulitis. No evidence of drainable abscess.
--- NOTE | 2019-02-27 21:36 | W.ED.GENAD ---
Discharge Plan Disposition Patient Disposition: [facility] Condition: Serious Discharge Details Chief Complaint: Abd Prob Clinical Impression: Perforated diverticulum, Abdominal pain, Periumbilical hernia Primary Care Provider: Lilibeth Tate ED Provider: Narayan Hernandez Home Meds and New Rx's Prescriptions: No Action amoxicillin 500 mg capsule 2,000 mg PO PRN RF: 0 prednisone 5 mg tablet 5 mg PO DAILY Qty: 90 RF: 2 esomeprazole magnesium [Nexium] 40 mg capsule,delayed release(DR/EC) 40 mg PO DAILY Qty: 30 RF: 2 ranitidine HCl 300 mg capsule 300 mg PO QHS Qty: 30 RF: 1 sucralfate 100 mg/mL suspension 5 ml PO QID Qty: 420 RF: 2 carvedilol [Coreg] 6.25 MG tablet 6.25 mg PO BID Qty: 180 RF: 4 aspirin [Aspir-81] 81 MG tablet,delayed release (DR/EC) 81 mg PO DAILY RF: 0 spironolactone [Aldactone] 25 MG tablet 12.5 mg PO DAILY Qty: 90 RF: 4 acetaminophen [Tylenol] 325 MG tablet 975 mg PO PRN RF: 0 ezetimibe [Zetia] 10 MG tablet 10 mg PO DAILY RF: 0 Entresto 1 EACH tablet 1 ea PO BID RF: 0 cholecalciferol (vitamin D3) [Vitamin D3] 2,000 unit Tablet 2,000 unit PO DAILY RF: 0 furosemide [Lasix] 40 mg tablet 40 mg PO DAILY RF: 0 Medical Decision Making This is a very pleasant 78-year-old female with a past medical history of ICD, previous history of abdominal surgery with cholecystectomy and appendectomy leading to an umbilical hernia with fat and occasional transverse colon placement who is scheduled to be evaluated at [facility] for potential surgery. She presents today for evaluation of left lower abdominal pain, vomiting starting yesterday, decreased p.o. intake. Exam demonstrates notable abdominal tenderness, voluntary guarding. Mild tachycardia. Signs and symptoms are certainly concerning for an acute surgical abdominal pathology including diverticulitis, perforation, obstruction, and potential hernias strangulation. Of note it is difficult to differentiate her periumbilical hernia from the rest of the pain on her abdominal exam. The hernia is tender and I am unable to reduce it however it is not red, indurated or isolated painful. We will treat with morphine for pain control, rehydrate, evaluate with CT scan and reassess. 11:44 PM Personal review of the CT scan shows findings concerning for perforation, and free air. In conjunction with diverticulitis. We will start Zosyn antibiotics, get a second IV, and contact [facility], we are still pending read from radiology. 12:[address] scan/etiology confirms evidence of diverticulitis with perforation. Virtual radiology also does confirm presence of bowel in the periumbilical hernia, however no evidence of strangulation at this point. Pending [facility] callback. The patient has been seen by surgical services here recently and is scheduled to be seen at [facility], and she was referred to [facility] because they did not feel that she was a surgical candidate here due to resource limitation. 12:38 AM I contacted [facility] and discussed the case with , he agrees with the assessment and plan the need for transfer. Patient will be transferred to the [facility] ED. At this time blood pressure is stable, systolic pressure is 98, diastolic is 60. Heart rate has notably improved and is in the 80s. I have extensively reviewed the treatment plan with the patient. I have addressed all patient concerns at this time. I have also discussed the plan with the admitting physician and they agree with the current assessment and plan and have agreed to assume responsibility for the patient. All parties demonstrate verbal understanding and agreement with our assessment and plan at this time. At time of transfer the patient was reassessed and continued to demonstrate current medical stability. No signs of acute respiratory distress requiring intubation, hemodynamic instability requiring pressor support, or rapidly declining mental status. The patient is stable for transport. EKG 20: 14 Rate 88, KS 132, QTc 532, QRS 170, ventricular pacing with good capture, previous EKG from 09/11/2014 shows no acute changes. FINDINGS: Tubes, catheters and devices: Multi-lead intracardiac pacing device partially visualized. Lungs: 1 cm calcified granuloma right lung base. Mediastinum: Small to moderate sliding hiatal hernia. Liver: Normal. No mass. Gallbladder and bile ducts: Cholecystectomy Pancreas: Normal. No ductal dilation. Spleen: Normal. No splenomegaly. Adrenals: Normal. No mass. Kidneys and ureters: Normal. No hydronephrosis. Stomach and bowel: Sigmoid diverticulosis with a long segment of mucosal thickening in the mid sigmoid cisterna by extensive fat stranding and localized pockets of air. No evidence of obstruction. Note is made that fluid-filled cecum is up in the right upper quadrant under the liver. Appendix: No evidence of appendicitis. Intraperitoneal space: Small to moderate amount of free air in the nondependent portion of the anterior abdomen and also up into the subdiaphragmatic space above to the spleen and along the left lobe of the liver. There also multiple small pockets of air scattered throughout the peritoneal cavity and into the pelvis. No drainable abscess identified. Vasculature: Atherosclerosis. No aortic aneurysm. Lymph nodes: Unremarkable. No enlarged lymph nodes. Bladder: Unremarkable as visualized. Reproductive: Unremarkable as visualized. Bones/joints: Bone demineralization and degenerative changes of the lumbar spine. Soft tissues: Periumbilical hernia to the right of a surgical suture line containing the antimesenteric portion of a segment of transverse colon. As the small bilateral fat-containing inguinal hernias. The left hernia contains a small amount of fluid and air. IMPRESSION: 1. Sigmoid diverticulitis with perforation and free air. No drainable abscess identified. 2. Right periumbilical hernia containing the antimesenteric loop of a portion of the transverse colon. Close clinical followup of this is suggested since this type of hernia can strangulate. 3. Bilateral fat-containing inguinal hernias. 4. Sliding jose hernia. Findings were discussed with NARAYAN HERNANDEZ at 02/28/2019 12:05 AM EST. Thank you for allowing us to participate in the care of your patient. Dictated and Authenticated by: Mansoor Kent MD 02/28/2019 12:13 AM Eastern Time ([place] & [place]) HPI General Date/Time Provider Initiated Documentation: 02/27/19 21:21. HPI Narrative: This is a 78-year-old female with a past medical history of an ICD, high cholesterol, previous cardiomyopathy, previous cholecystectomy and appendectomy leading to a subsequent umbilical hernia with a small amount of fat and occasional colon Involved, she is scheduled for surgical evaluation at [facility]. She presents today for evaluation of abdominal pain. She describes it as aching and sharp. Worse with movement and palpation. Patient states that starting last night she has had few intermittent episodes of vomiting, no diarrhea or bowel movements since yesterday, no eating since yesterday. She has had moderate to severe left lower quadrant abdominal pain with radiation diffusely throughout. She denies any chest pain or shortness of breath. She denies any numbness tingling or weakness. She denies any hematochezia, melena, acholic stool, hematemesis. She denies any fever or chills. No other complaints at this time. No other modifying factors. Related Data Home Medications Medication Instructions Recorded Confirmed aspirin [Aspir-81] 81 mg PO DAILY tab-cap 08/21/12 02/27/19 carvedilol [Coreg] 6.25 mg PO BID #180 tab-cap 08/21/12 02/27/19 spironolactone [Aldactone] 12.5 mg PO DAILY #90 tab-cap 08/21/12 02/27/19 acetaminophen [Tylenol] 975 mg PO PRN 08/22/12 02/27/19 Entresto 1 ea PO BID 07/29/16 02/27/19 ezetimibe [Zetia] 10 mg PO DAILY tab-cap 07/29/16 02/27/19 amoxicillin 500 mg capsule 2,000 mg PO PRN cap 12/02/18 02/27/19 prednisone 5 mg tablet 5 mg PO DAILY #90 tab-cap 12/02/18 02/27/19 cholecalciferol (vitamin D3) 2,000 unit PO DAILY 01/25/19 02/27/19 [Vitamin D3] esomeprazole magnesium 40 mg 40 mg PO DAILY #30 cap 01/27/19 02/27/19 capsule,delayed release ranitidine HCl 300 mg capsule 300 mg PO QHS #30 cap 01/27/19 02/27/19 sucralfate 100 mg/mL oral 5 ml PO QID #420 ml 01/27/19 02/27/19 suspension furosemide [Lasix] 40 mg PO DAILY 02/27/19 02/27/19 Previous Rx's Medication Instructions Recorded prednisone 5 mg tablet 5 mg PO DAILY #90 tab-cap 12/02/18 esomeprazole magnesium 40 mg 40 mg PO DAILY #30 cap 01/27/19 capsule,delayed release ranitidine HCl 300 mg capsule 300 mg PO QHS #30 cap 01/27/19 sucralfate 100 mg/mL oral 5 ml PO QID #420 ml 01/27/19 suspension Allergies Allergy/AdvReac Type Severity Reaction Status Date / Time allopurinol Allergy Severe rash all Verified 02/27/19 23:07 over body Cktjnwv-Boy-Cje Reductase AdvReac Severe Muscle pain Verified 02/27/19 23:07 Inhibitor codeine AdvReac Intermediate HALLUCINATI Verified 02/27/19 23:07 ONS General Stated Complaint: Abd Prob NICOLE: 3 Review of Systems All systems reviewed & are unremarkable except as noted in HPI and below PFSH Social History Smoking/Tobacco Use Status: Never Alcohol Intake: never Drug use: Never Substance use type: does not use Caregiver/Support person: No Household members: spouse and children Pets and animals: No Sexually active: No Current gender identity: decline to answer What is your relationship status?: How often do you talk on the phone with friends or family?: three or more times per week How often do you get together with friends or relatives?: never How often do you attend yazidi or methodist services?: decline to answer Do you belong to any clubs or organized social groups?: decline to answer Panel score (0-1 are the most socially isolated patients): 2 What type of physical activity do you participate in: none Duration: decline to answer Frequency: decline to answer Geri/Samaritan: Congregational Special geri needs: No Seatbelt use: always Drive intox or ride w/intox charter coach driver: No Do you feel safe at home: Yes Do you feel safe in your relationship?: Yes Additional Social history: lives with friend daughter nearby Exam Narrative Exam Narrative: 1.Const: Well-nourished, Well-developed, appearing stated age 2.Eyes: PERRL, no conjunctival injection, and symmetrical lids. 3.ENT: Atraumatic external nose and ears. Moist MM. Neck: Symmetric, trachea midline, No thyromegaly. 4.CVS: +S1/S2, No murmurs or gallops. Peripheral pulses 2+ and equal in all extremities. Brisk capillary refill in all extremities. 5.RESP: Unlabored respiratory effort. Clear to auscultation bilaterally. No wheezes rales or rhonchi 6.GI: Soft, mild distention, notable guarding and tenderness throughout, primarily in the left lower quadrant. No worsening pain with logroll of the legs, however flexion extension at the hip does elicit pain in the abdominal region. No hip tenderness on palpation though. Bowel sounds are notably diminished. Difficult to feel any hernia secondary to patient's sensitivity. 7.MSK: Normocephalic/Atraumatic, Extremities w/o deformity or ttp No cyanosis or clubbing, Normal movement of all extremities 8.Skin: Warm, Dry. No rashes or lesions. 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 Sensation grossly intact, no focal neurologic deficits. 10.Psych: (AAO) x3. Appropriate mood and affect Course Vital Signs Vital signs: Vital Signs Temperature 36.1 C L 02/27/19 21:30 Pulse 108 H 02/27/19 21:30 Respiratory Rate 20 02/27/19 21:30 Blood Pressure 138/99 H 02/27/19 21:30 Pulse Oximetry 95 02/27/19 21:30 Temperature 36.1 C L 02/27/19 21:30 Temperature Source Skin 02/27/19 21:30 Pulse 108 H 02/27/19 21:30 Respiratory Rate 20 02/27/19 21:30 Blood Pressure 138/99 H 02/27/19 21:30 Blood Pressure Position Supine 02/27/19 21:30 Pulse Oximetry 95 02/27/19 21:30 Oxygen Delivery Method Room Air 02/27/19 21:30 Oxygen Flow Rate 0 02/27/19 21:30 Pain Level 10 02/27/19 21:30
[2019-02-27] MEDS: Breeza Beverage 473 ML BTL PO ×2 (21:38→21:39)
[2019-02-27] MEDS: Omnipaque 350 MG/ML 50 ML BTL PO (21:38)
[2019-02-27 22:00] VITALS: BP 96/37; PULSE 100; RESP 19; O2SAT 97
[2019-02-27] MEDS: Ondansetron 4 MG/2 ML VIAL IVP (22:06)
[2019-02-27] MEDS: Normal Saline 1,000 ML 1000 ML IV ×2 (22:08→23:25)
[2019-02-27 22:10] LABS: Lactate 1.3 mmol/L (0.6-1.4)
[2019-02-27 22:11] LABS: Abs Immature Grans 0.05 k/cumm (0.0-0.09); Absolute Basophil Count 0.02 k/cumm (0.0-0.2); Basophils % 0.1; Eosinophils % 0.2; HCT 39.6 % (36.0-46.0); HGB 13.2 g/dL (12.0-15.5); Immature Grans % 0.3; Lymphocytes % 6.2; Mean Corp. HGB Concentration 33.3 g/dL (32.0-36.0); Mean Corpuscular Hemoglobin 31.2 pg (27.0-33.0); Mean Corpuscular Volume 93.6 fL (80-95); Mean Platelet Volume 10.3 fL (8.0-11.0); Neutrophils % 88.2; Platelet Count 123 x1000/uL (130-400); RBC 4.23 m/cumm (4.00-5.20); RBC Distribution Width 13.2 % (11.7-14.6); White Blood Cell Count 18.75 k/cumm (4.4-10.8)
[2019-02-27 22:13] LABS: Absolute Eosinophil Count 0.04 k/cumm (0.0-0.7); Absolute Lymphocyte Count 1.16 k/cumm (1.2-3.4); Absolute Monocyte Count 0.94 k/cumm (0.11-0.7); Absolute Neutrophil Count 16.54 k/cumm (1.2-6.7)
[2019-02-27 22:14] LABS: Bilirubin Negative (Negative); Blood Trace-lysed (Negative); Clarity Clear (Clear); Glucose Negative (Negative); Ketones Negative (Negative); Leukocyte Esterase Trace (Negative); Nitrite Negative (Negative); Specific Gravity 1.015 (1.005-1.025); Urobilinogen 0.2 EU/dL (Up TO 0.2); pH 5.5 (5-8)
[2019-02-27 22:28] LABS: ALT 34 U/L (14-59); AST 37 U/L (15-37); Albumin 3.5 g/dL (3.4-5.0); Alkaline Phosphatase 56 U/L (46-116); Anion Gap 9.7 mmol/L (3-11); BUN 25 mg/dL (7-18); Bilirubin, Total 0.9 mg/dL (0.2-1.0); CO2 29.3 mmol/L (21.0-32.0); CREATININE 1.39 mg/dL (0.55-1.02); Calcium 9.3 mg/dL (8.5-10.1); Chloride 104 mmol/L (98-107); Estimated GFR 36.86 (mL/min/1.73m2); Glucose 111 mg/dL (74-106); Lipase 85 U/L (73-393); Potassium 3.9 mmol/L (3.5-5.1); Sodium 143 mmol/L (136-145); Total Protein 6.6 g/dL (6.4-8.2)
[2019-02-27 22:30] VITALS: BP 89/43; PULSE 89; RESP 17; O2SAT 97
[2019-02-27 22:30] LABS: Bacteria Few HPF (Negative); C & S Indicated? Yes; Casts Negative LPF (Negative); Crystals Few Amorphous HPF (Negative); Epithelial Cells Few HPF (Negative); Mucus Negative (Negative); Troponin I < 0.05 ng/Ml (<0.06)
[2019-02-27 22:37] LABS: INR 1.2 (0.9-1.1); PTT Activated 26.9 sec (21.0-31.4); Prothrombin Time 11.8 sec (9.3-11.0)
[2019-02-27 23:00] VITALS: BP 96/42; PULSE 92; O2SAT 97
--- NOTE | 2019-02-27 23:25 | NUR.NOTE ---
Pt visitor, who is not the pt daughter, states that pt is more pale than before. parts data writer verifies with Dr Maxwell that pt is a/ox4, skin is pwd with no change in mentation or skin color since arrival. Pt also voices increased abdominal pain while drinking CT contrast, with visitor stating I have never heard of this contrast causing abodminal pain before and I cant find that on the internet. ot states she drank contrast in the past and states abdominal pain is always affected by drink with parts data writer educating pt visitor that a side effect of the oral contrast, as explained by parts data writer prior to pt drinking, is that increased abdominal pain and increased nausea has been observed in most patients and instructed to notify Rn if pain is increased/becomes unbearable and if nausea returns with pt voicing understanding. pt visitor states oh, ok, so this isnt just unique to her? parts data writer validated visitors concerns and assured sx are not unique only to this pt based on experience. pt with no distress noted, pt is a/ox4, skin pwd, respirations even non labored, BP has been soft since arrival with pt displaying no sx of hypotension. pt ambulated to toilet by staff stand by assist with steady gait. no distress noted. Nursing Note:
[2019-02-27] MEDS: Omnipaque 350 MG/ML 100 ML BTL IJ (23:41)
[2019-02-27 23:51] VITALS: BP 98/56; PULSE 82; RESP 16; O2SAT 97
--- NOTE | 2019-02-28 00:10 | NUR.NOTE ---
Dr Maxwell bedside reviewing CT results with pt and her daughter with pt daughter stating she doesnt know why the results on todays CT werent addressed on pt last visit apx [address] Maxwell advising pt daughter that these findings were not noted on prior scans and the problem identified today is new.Nursing Note:
--- NOTE | 2019-02-28 00:14 | DI.VRAD_ITS ---
PROCEDURE INFORMATION: Exam: CT Abdomen And Pelvis With Contrast Exam date and time: 02/27/2019 11:30 PM Age: 78 years old Clinical history: Abdominal pain; Localized; Left lower quadrant (llq); Patient HX: Llq pain, vomiting, HX of hernia TECHNIQUE: Imaging protocol: Computed tomography of the abdomen and pelvis with intravenous contrast. Other contrast: Route: Oral; COMPARISON: CT ABDOMEN PELVIS W 01/29/2019 12:26 PM FINDINGS: Tubes, catheters and devices: Multi-lead intracardiac pacing device partially visualized. Lungs: 1 cm calcified granuloma right lung base. Mediastinum: Small to moderate sliding hiatal hernia. Liver: Normal. No mass. Gallbladder and bile ducts: Cholecystectomy Pancreas: Normal. No ductal dilation. Spleen: Normal. No splenomegaly. Adrenals: Normal. No mass. Kidneys and ureters: Normal. No hydronephrosis. Stomach and bowel: Sigmoid diverticulosis with a long segment of mucosal thickening in the mid sigmoid cisterna by extensive fat stranding and localized pockets of air. No evidence of obstruction. Note is made that fluid-filled cecum is up in the right upper quadrant under the liver. Appendix: No evidence of appendicitis. Intraperitoneal space: Small to moderate amount of free air in the nondependent portion of the anterior abdomen and also up into the subdiaphragmatic space above to the spleen and along the left lobe of the liver. There also multiple small pockets of air scattered throughout the peritoneal cavity and into the pelvis. No drainable abscess identified. Vasculature: Atherosclerosis. No aortic aneurysm. Lymph nodes: Unremarkable. No enlarged lymph nodes. Bladder: Unremarkable as visualized. Reproductive: Unremarkable as visualized. Bones/joints: Bone demineralization and degenerative changes of the lumbar spine. Soft tissues: Periumbilical hernia to the right of a surgical suture line containing the antimesenteric portion of a segment of transverse colon. As the small bilateral fat-containing inguinal hernias. The left hernia contains a small amount of fluid and air. IMPRESSION: 1. Sigmoid diverticulitis with perforation and free air. No drainable abscess identified. 2. Right periumbilical hernia containing the antimesenteric loop of a portion of the transverse colon. Close clinical followup of this is suggested since this type of hernia can strangulate. 3. Bilateral fat-containing inguinal hernias. 4. Sliding jose hernia. Findings were discussed with ELZBIETA HERNANDEZ at 02/28/2019 12:05 AM EST. Dictated and Authenticated by: Mansoor Kent MD. Ordering:MARCELLO Busch MD
[2019-02-28] MEDS: HYDROmorphone 2 MG/ML VIAL 1 MG IVP (00:27)
[2019-02-28 00:37] VITALS: BP 107/39; PULSE 82; RESP 18; O2SAT 96
[2019-02-28] MEDS: PIPERACILLIN/TAZO 4.5 GM in Normal Saline 100 ML IVPB (00:37)
[2019-02-28 00:45] VITALS: BP 95/66; PULSE 81; RESP 18; O2SAT 98
[2019-02-28] MEDS: HYDROmorphone 2 MG/ML VIAL (01:22)
[2019-02-28 01:36] VITALS: BP 95/44; PULSE 82; RESP 18; TEMP 36.9; O2SAT 97
== END 2019-02-28 01:35 | disposition short-term general hospital (02) ==
PROVIDERS: Emergency Provider Student in an Organized Health Care Education/Training Program; PCP Internal Medicine
DX: R10.32 Left lower quadrant pain (principal); K57.20 Diverticulitis of large intestine with perforation and abscess without bleeding; R11.2 Nausea with vomiting, unspecified; K42.9 Umbilical hernia without obstruction or gangrene
CPT/HCPCS: 36415; 80053; 83690; 87040; 93005; 96361; 96365; 96375; 96376; 99285; 74177; 81003; 81015; 83605; 84484; 85025; 85610; 85730; 87086; 93010; J2405; J2543; J3490; Q9967

== ENCOUNTER 2019-04-15 00:43 | Outpatient (CLI) | payer MEDICARE, SELFPAY ==
[2019-04-15 08:42] LABS: Abs Immature Grans 0.02 k/cumm (0.0-0.09); Absolute Basophil Count 0.03 k/cumm (0.0-0.2); Absolute Eosinophil Count 0.22 k/cumm (0.0-0.7); Absolute Lymphocyte Count 2.15 k/cumm (1.2-3.4); Absolute Monocyte Count 0.77 k/cumm (0.11-0.7); Absolute Neutrophil Count 3.94 k/cumm (1.2-6.7); Basophils % 0.4; Eosinophils % 3.1; HCT 36.8 % (36.0-46.0); HGB 11.5 g/dL (12.0-15.5); Immature Grans % 0.3 %; Lymphocytes % 30.2; Mean Corp. HGB Concentration 31.3 g/dL (32.0-36.0); Mean Corpuscular Hemoglobin 30.6 pg (27.0-33.0); Mean Corpuscular Volume 97.9 fL (80-95); Mean Platelet Volume 9.5 fL (8.0-11.0); Monocytes % 10.8; Neutrophils % 55.2; Platelet Count 203 x1000/uL (130-400); RBC 3.76 m/cumm (4.00-5.20); RBC Distribution Width 14.1 % (11.7-14.6); White Blood Cell Count 7.13 k/cumm (4.4-10.8)
[2019-04-15 09:02] LABS: ALT 30 U/L (14-59); AST 25 U/L (15-37); Albumin 3.7 g/dL (3.4-5.0); Alkaline Phosphatase 53 U/L (46-116); Anion Gap 9.3 mmol/L (3-11); BUN 22 mg/dL (7-18); Bilirubin, Total 0.5 mg/dL (0.2-1.0); CO2 28.7 mmol/L (21.0-32.0); CREATININE 1.05 mg/dL (0.55-1.02); Calcium 9.3 mg/dL (8.5-10.1); Chloride 107 mmol/L (98-107); Estimated GFR 50.82 (mL/min/1.73m2); Glucose 87 mg/dL (74-106); NT-proBNP 3560 pg/mL (<300); Potassium 3.6 mmol/L (3.5-5.1); Sodium 145 mmol/L (136-145); Total Protein 6.4 g/dL (6.4-8.2)
== END 2019-04-15 01:03 ==
PROVIDERS: PCP Internal Medicine; Visit Provider Nurse Practitioner Adult Health
DX: I50.22 Chronic systolic (congestive) heart failure (principal); I42.0 Dilated cardiomyopathy
CPT/HCPCS: 36415; 80053; 83880; 85025

== ENCOUNTER 2019-10-27 04:02 | Outpatient (CLI) | payer MEDICARE, SELFPAY ==
[2019-10-27 09:00] LABS: HCT 40.8 % (36.0-46.0); HGB 13.1 g/dL (12.0-15.5); Mean Corp. HGB Concentration 32.1 g/dL (32.0-36.0); Mean Corpuscular Hemoglobin 30.7 pg (27.0-33.0); Mean Corpuscular Volume 95.6 fL (80-95); Mean Platelet Volume 10.5 fL (8.0-11.0); Platelet Count 177 x1000/uL (130-400); RBC 4.27 m/cumm (4.00-5.20); RBC Distribution Width 14.2 % (11.7-14.6); White Blood Cell Count 6.36 k/cumm (4.4-10.8)
[2019-10-27 10:09] LABS: CREATININE 1.15 mg/dL (0.55-1.02); Calculated LDL 124 mg/dL (<100); Cholesterol 219 mg/dL (<200); Estimated GFR 45.76 (mL/min/1.73m2); HDL Cholesterol 60 mg/dL (40-60); Potassium 3.7 mmol/L (3.5-5.1); Triglyceride 176 mg/dL (<150); Vitamin B12 323 pg/mL (193-986)
[2019-10-27 10:20] LABS: Uric Acid 5.4 mg/dL (2.6-6.0)
== END 2019-10-27 04:22 ==
PROVIDERS: PCP Nurse Practitioner; Visit Provider Nurse Practitioner
DX: N28.9 Disorder of kidney and ureter, unspecified (principal); M1A.9XX1 Chronic gout, unspecified, with tophus (tophi); R53.83 Other fatigue; D12.6 Benign neoplasm of colon, unspecified; E78.2 Mixed hyperlipidemia; L65.9 Nonscarring hair loss, unspecified
CPT/HCPCS: 36415; 80061; 85027; 82565; 82607; 84132; 84443; 84550

== ENCOUNTER → 2019-12-22 09:31 | Outpatient (BNVA) | payer MEDICARE, SELFPAY | PROVIDERS: PCP Nurse Practitioner; Referring Provider Nurse Practitioner; Visit Provider Physician Assistant | DX: I42.9 Cardiomyopathy, unspecified (principal); Z45.02 Encounter for adjustment and management of automatic implantable cardiac defibrillator | CPT/HCPCS: 93284; 99212 ==

== ENCOUNTER 2020-01-05 05:28 | Outpatient (CLI) | payer MEDICARE, SELFPAY ==
[2020-01-05 10:07] LABS: Abs Immature Grans 0.02 10^3/uL (0.0-0.06); Absolute Basophil Count 0.01 10^3/uL (0.0-0.2); Absolute Eosinophil Count 0.23 10^3/uL (0.0-0.7); Absolute Lymphocyte Count 2.06 10^3/uL (1.2-3.4); Absolute Monocyte Count 0.62 10^3/uL (0.1-0.8); Absolute Neutrophil Count 3.73 10^3/uL (1.2-6.7); Basophils % 0.1; Eosinophils % 3.4; HCT 39.5 % (36.0-46.0); HGB 12.6 g/dL (11.2-15.7); Immature Grans % 0.3; Lymphocytes % 30.9; MCH 30.7 pg (27.0-33.0); MCHC 31.9 % (32.0-36.0); MCV 96.1 fL (80-95); MPV 10.5 fL (8.0-11.0); Monocytes % 9.3; Nucleated RBC 0 %; Platelet Count 155 10^3/uL (130-400); RBC 4.11 10^6/uL (3.93-5.22); RDW 13.3 % (11.7-14.6); RDW-SD 46.9 fL; WBC 6.67 10^3/uL (4.4-10.8)
[2020-01-05 11:00] LABS: Anion Gap 7.5 mmol/L (3-11); BUN 26 mg/dL (7-18); CO2 29.5 mmol/L (21.0-32.0); CREATININE 1.21 mg/dL (0.55-1.02); Calcium 9.1 mg/dL (8.5-10.1); Calculated LDL 94 mg/dL (<100); Chloride 105 mmol/L (98-107); Cholesterol 179 mg/dL (<200); Estimated GFR 43.15 (mL/min/1.73m2); Glucose 91 mg/dL (74-106); HDL Cholesterol 56 mg/dL (40-60); Potassium 3.5 mmol/L (3.5-5.1); Sodium 142 mmol/L (136-145); Triglyceride 148 mg/dL (<150)
[2020-01-05 11:02] LABS: NT-proBNP 4157 pg/mL (<300)
== END 2020-01-05 05:48 ==
PROVIDERS: PCP Nurse Practitioner; Visit Provider Nurse Practitioner
DX: I50.22 Chronic systolic (congestive) heart failure (principal); E78.5 Hyperlipidemia, unspecified; Z95.810 Presence of automatic (implantable) cardiac defibrillator
CPT/HCPCS: 80048; 80061; 82565; 83880; 84132; 85025

== ENCOUNTER 2020-01-18 00:34 | Outpatient (CLI) | payer MEDICARE, SELFPAY ==
--- NOTE | 2020-01-18 | DI.US_ITS ---
APPROVED REPORT EXAM: Comprehensive 2D, Doppler, and color-flow Echocardiogram Patient Location: Out-Patient Grounds Person: Zainab Huerta RDCS (AE) Indications: Heart failure with reduced EF, Mitral regurgitation Other Information Study Quality: Adequate Conclusion Left Ventricle : Left ventricle is severely dilated. Left ventricular systolic function is severely d ecreased. There is normal left ventricular wall thickness. Regional wall motion abnormalities are not ed. The left ventricular diastolic function is abnormal. LVEF is 33%. Right Ventricle : Right ventricle is grossly normal in size. Right ventricular systolic function is g rossly normal. The RVSP is 37.7 mmHg. Atria : Left atrium is moderately dilated. Right atrium is borderline dilated. Aortic Valve : The Aortic valve is sclerotic. Aortic valve is trileaflet. There is no aortic valvul ar stenosis. Trace aortic regurgitation. Mitral Valve : Mild mitral annular calcification. No evidence of mitral valve stenosis. Moderate to s evere mitral regurgitation. The study of [facility] from 03/01/2019: There is no significant change. Wall motion Left Ventricle Left ventricle is severely dilated. Left ventricular systolic function is severely decreased. There i s normal left ventricular wall thickness. Regional wall motion abnormalities are noted. The left vent ricular diastolic function is abnormal. There is no ventricular septal defect visualized. LVEF is 33% . Right Ventricle Right ventricle is grossly normal in size. Right ventricular systolic function is grossly normal. The RVSP is 37.7 mmHg. Device lead is present in the right ventricle. Atria Left atrium is moderately dilated. Right atrium is borderline dilated. The interatrial septum is inta ct with no evidence for an atrial septal defect. Aortic Valve The Aortic valve is sclerotic. Aortic valve is trileaflet. There is no aortic valvular stenosis. Tra ce aortic regurgitation. Mitral Valve Mild mitral annular calcification. No evidence of mitral valve stenosis. Moderate to severe mitral re gurgitation. Tricuspid Valve The tricuspid valve is normal in structure. There is no tricuspid valve stenosis. Mild to moderate tr icuspid regurgitation. Pulmonic Valve Pulmonic valve is not well visualized. There is no pulmonic valvular stenosis. There is no pulmonic v alvular regurgitation. Great Vessels The aortic root is normal in size. The ascending aorta is normal in size. IVC is normal in size and c ollapses >50% with inspiration. Pericardium There is no pericardial effusion. 2D Dimensions IVSD d PLAX 1.04 cm F: 0.6-1.0 LV Vol A2C d MOD 190.7 mL LVPW d PLAX 1.03 cm F: 0.6 - 1.0 LV Vol A4C d MOD 174.0 mL LVID d PLAX 6.28 cm F: 3.8 - 5.2 LA vol/ BSA A2C s A-L 55.6 mL/m2 LVDs 5.40 cm F: 2.2 - 3.5 LA vol/ BSA A4C s A-L 34.1 mL/m2 Ao Root d 2.22 cm F: 2.7 - 3.3 LA Vol/ BSA Biplane s A-L 44.2 mL/m2 RA Area A4C 15.01 cm2 LA Area A4C s MOD 19.34 cm2 RA Vol/ BSA A4C s A-L 25.3 mL/m2 LA Area A2C s MOD 25.09 cm2 Ao Asc Diam d 2.90 cm F: 2.3 - 3.1 LV EF A4C MOD 34.9 % LV EF Teichholz 29.0 % LV EF A2C MOD 32.8 % LVEF (Hays's) 31.96 % F: 54 - 74 LV EF Biplane MOD 32.0 % LV Volume 143.87 mL F: 46 - 106 SV 58.16 mL LV Volume Index 83.64 mL/m2 F: 29 - 61 SV Index 33.79 mL/m2 LV Vol Biplane MOD 182.0 mL FS 13.85 % M-Mode TAPSE 1.71 cm (M/F) >1.7 LV Diastology MV E' medial 0.060 (>0.07 m/s) E/A Ratio 0.9 LV E/e MED 16.60 (<14) MV E Vmax 1.00 (0.4-1.3 m/s) MV E' lateral 0.086 (>0.1 m/s) MV A Vmax 1.15 (0.4-1.3 m/s) LV E/e LAT 11.60 (<14) MV E/A Ratio 0.86 MV E/E' medial 16.62 MV E/E' lateral 11.63 Aortic Valve LVOT Area 3.19 cm2 AoV Area Vmax 2.45 cm2 LVOT Vmax 1.09 m/s AoV Area/ BSA (Vmax) 1.42 cm2/m2 LVOT Mean Daniel. 0.71 m/s ILENE Mean Daniel. 2.19 cm2 LVOT Peak Grad 4.7 mmHg ILENE Mean Daniel. Index 1.27 cm2/m2 LVOT Mean Grad 2.4 mmHg AR DT 2474 msec LVOT VTI 0.229 m AR PHT 717 msec LVOT Diam s 2.00 cm AoV Vmax 1.42 m/s Velocity Ratio 0.76 AoV Mean Daniel. 1.04 m/s AoV Peak Grad 8.0 mmHg LVOT SV 73.08 mL AoV Mean Grad 4.6 mmHg AoV VTI 0.286 m AoV Area VTI 2.55 cm2 AoV Area/ BSA (VTI) 1.48 cm/m2 Mitral Valve MV DT 167 (160-240 msec) MR Vmax 4.62 m/s MV PHT 48 msec MR VTI 1.623 m MV Area PHT 4.54 cm2 MR Peak Grad 85.5 mmHg MV VTI 0.329 m MR Mean Grad 49.9 mmHg MV VTI Annulus 0.334 m MR PISA Radius 0.51 cm MV Area VTI 2.25 (4.0-6.0 cm2) MR EROA 0.12 cm2 MR Aliasing Velocity 0.35 m/s MR PISA 1.63 cm2 Pulmonary Valve PV Vmax 1.08 (0.5-1.5 m/s) RVOT Peak Gr. 3.24 mmHg PV Peak Grad 4.6 mmHg RVOT Mean Gr. 1.45 mmHg PV Mean Grad 2.3 mmHg RVOT VTI 0.132 m PV VTI 0.212 m RVOT Vmax 0.90 m/s Tricuspid Valve TR Peak Grad 34.7 mmHg TR Vmax 2.95 m/s RA Pressure 3.00 mmHg RVSP (TR) 37.7 mmHg
== END 2020-01-18 00:54 ==
PROVIDERS: PCP Nurse Practitioner; Visit Provider Nurse Practitioner Adult Health
DX: I50.20 Unspecified systolic (congestive) heart failure (principal); I34.0 Nonrheumatic mitral (valve) insufficiency
CPT/HCPCS: 93306

== ENCOUNTER → 2020-07-12 12:51 | Outpatient (BNVA) | payer MEDICARE, SELFPAY | PROVIDERS: PCP Nurse Practitioner; Referring Provider Nurse Practitioner; Visit Provider Internal Medicine Cardiovascular Disease | DX: I42.9 Cardiomyopathy, unspecified (principal); Z45.02 Encounter for adjustment and management of automatic implantable cardiac defibrillator | CPT/HCPCS: 93284; 99212 ==

== ENCOUNTER 2020-07-14 03:00 | Outpatient (CLI) | payer MEDICARE, SELFPAY ==
[2020-07-14 09:43] LABS: Uric Acid 5.1 mg/dL (2.6-6.0)
[2020-07-14 09:51] LABS: ALT 20 U/L (14-59); AST 11 U/L (15-37); Albumin 3.9 g/dL (3.4-5.0); Alkaline Phosphatase 51 U/L (46-116); Anion Gap 4.6 mmol/L (3-11); BUN 30 mg/dL (7-18); Bilirubin, Total 0.4 mg/dL (0.2-1.0); CO2 33.4 mmol/L (21.0-32.0); CREATININE 1.5 mg/dL (0.55-1.02); Calcium 9.3 mg/dL (8.5-10.1); Chloride 104 mmol/L (98-107); Estimated GFR 33.58 (mL/min/1.73m2); Glucose 87 mg/dL (74-106); NT-proBNP 4385 pg/mL (<300); Potassium 3.9 mmol/L (3.5-5.1); Sodium 142 mmol/L (136-145); Total Protein 6.3 g/dL (6.4-8.2)
[2020-07-18 15:59] LABS: Iron 90 ug/dL (50-170); Total Iron Binding Capacity 315 ug/dL (250-450); Transferrin Sat 29 % (15-50)
[2020-07-18 16:14] LABS: Ferritin 39 ng/mL (8-252)
== END 2020-07-14 03:01 | disposition home or self-care (01) ==
LOC: LBO 03:00
PROVIDERS: Internal Medicine; PCP Nurse Practitioner; Visit Provider Nurse Practitioner Adult Health
DX: I50.22 Chronic systolic (congestive) heart failure (principal); R53.83 Other fatigue; M1A.9XX1 Chronic gout, unspecified, with tophus (tophi); Z51.81 Encounter for therapeutic drug level monitoring
CPT/HCPCS: 36415; 80053; 82728; 83540; 83550; 83880; 84550

== ENCOUNTER 2020-07-31 13:46 | Outpatient (RCR) | payer MEDICARE, SELFPAY | END 2020-08-04 23:59 | disposition home or self-care (01) | LOC: CR 13:46 | PROVIDERS: PCP Nurse Practitioner; Visit Provider Family Medicine | DX: Z51.89 Encounter for other specified aftercare (principal) ==

== ENCOUNTER 2020-08-30 09:00 | Outpatient (RCR) | payer MEDICARE, SELFPAY | END 2020-09-04 23:59 | disposition home or self-care (01) | LOC: CR 09:00 | PROVIDERS: PCP Nurse Practitioner; Visit Provider Family Medicine | DX: Z51.89 Encounter for other specified aftercare (principal); Z95.0 Presence of cardiac pacemaker; I42.9 Cardiomyopathy, unspecified; I48.0 Paroxysmal atrial fibrillation; I50.9 Heart failure, unspecified | CPT/HCPCS: S9472 ==

== ENCOUNTER 2020-10-04 09:00 | Outpatient (RCR) | payer MEDICARE, SELFPAY | END 2020-10-04 23:59 | disposition home or self-care (01) | LOC: CR 09:00 | PROVIDERS: PCP Nurse Practitioner; Visit Provider Family Medicine | DX: Z51.89 Encounter for other specified aftercare (principal); I50.20 Unspecified systolic (congestive) heart failure | CPT/HCPCS: S9472 ==

== ENCOUNTER 2020-10-16 09:00 | Outpatient (RCR) | payer MEDICARE, SELFPAY | END 2020-11-04 23:59 | disposition home or self-care (01) | LOC: CR 09:00 | PROVIDERS: PCP Nurse Practitioner; Visit Provider Family Medicine | DX: I50.20 Unspecified systolic (congestive) heart failure (principal); Z51.89 Encounter for other specified aftercare | CPT/HCPCS: S9472 ==

== ENCOUNTER 2020-11-03 03:33 | Outpatient (CLI) | payer MEDICARE, SELFPAY ==
[2020-11-03 10:12] LABS: CREATININE 1.5 mg/dL (0.55-1.02); Calculated LDL 113 mg/dL (<100); Cholesterol 190 mg/dL (<200); Estimated GFR 33.58 (mL/min/1.73m2); HDL Cholesterol 55 mg/dL (40-60); Potassium 3.5 mmol/L (3.5-5.1); Triglyceride 112 mg/dL (<150)
== END 2020-11-03 03:34 | disposition home or self-care (01) ==
LOC: LBO 03:33
PROVIDERS: PCP Nurse Practitioner; Visit Provider Nurse Practitioner
DX: E78.2 Mixed hyperlipidemia (principal); N28.9 Disorder of kidney and ureter, unspecified
CPT/HCPCS: 36415; 80061; 82565; 84132

== ENCOUNTER 2020-11-08 09:00 | Outpatient (RCR) | payer MEDICARE, SELFPAY | END 2020-12-05 23:59 | disposition home or self-care (01) | LOC: CR 09:00 | PROVIDERS: PCP Nurse Practitioner; Visit Provider Family Medicine | DX: Z51.89 Encounter for other specified aftercare (principal); Z95.0 Presence of cardiac pacemaker; I42.9 Cardiomyopathy, unspecified; I48.0 Paroxysmal atrial fibrillation; I38 Endocarditis, valve unspecified | CPT/HCPCS: S9472 ==

== ENCOUNTER 2020-11-10 08:13 | Inpatient (IN) | payer MEDICARE, SELFPAY ==
[2020-11-10] VITALS (150 sets, daily range): BP systolic 56–126; BP diastolic 29–91; PULSE 57–192; RESP 14–40; TEMP 36.3–38.3; O2SAT 85–100
--- NOTE | 2020-11-10 08:15 | RT.EKG_ITS ---
APPROVED REPORT Exam: Resting ECG Reason for Exam: pace maker issue Patient Location: E HR:112 bpm ECG Measurements Heart Rate 112 AXIS HI 146 P 103 QRSd 128 QRS -80 QT 356 T 82 QTc 488 Conclusion Atrial-sensed ventricular-paced rhythm...ventricular pacing tracks p-waves Biventricular paced rhythm...non-simultaneous bi-vent pacing
--- NOTE | 2020-11-10 08:30 | DI.RAD_ITS ---
Exam(s) XR PORTABLE CHEST AP EXAM: XR PORTABLE CHEST AP CLINICAL HISTORY: pacemaker fire x 4 TECHNIQUE: COMPARISON: CR CHEST 2 VIEWS PA,LAT from 09/11/2014 FINDINGS: The heart appears mildly enlarged. There is a transvenous cardiac pacemaker in position. Lungs appe ar predominantly clear with a calcified right lower lobe granuloma. No gross pleural effusion on thi s frontal film. IMPRESSION: No evidence of acute process. RADIATION DOSE DELIVERED: Total DLP
--- NOTE | 2020-11-10 08:39 | W.ED.GENAD ---
Discharge Plan Disposition Patient Disposition: [facility] INPATIENT Condition: Critical Discharge Details Clinical Impression: Atrial fibrillation with RVR, Ventricular tachyarrhythmia, Elevated troponin Admit Date/Time: 11/10/20 10:46 Admit Provider: Ryan Lugo Attending Provider: Ryan Lugo Primary Care Provider: Leny Li ED Provider: Gurvinder Price Discharge Data Discharge Date/Time-TO BE ENTERED AT DEPARTURE: 11/10/20 12:25 Medical Decision Making <VALERIO Warren - Last Filed: 11/10/20 10:53> This is a 80-year-old female, she has a pacemaker and defibrillator, states that the defibrillator has fired 4 times since 430 this morning. She reported lack of appetite yesterday, now with mild nausea and vomiting although no dry heaving or vomiting currently. Heart rate appears to be paced, in the 130s. Blood pressure upon arrival was 126/56. During her triage there was a question of her defibrillator firing once again. Patient denies any sensation of firing. Will obtain tomorrow's IV access, EKG, initiate cardiac work-up, and immediately discussed the case with Dr. Price. He was at bedside, please see his note. Consultation placed to our cardiology team and we initiated a transfer to [facility] through the transfer center. We also will attempt to interrogate the Medtronic device. Defibrillator pads placed on the patient. Heart rate continues to climb into the 150s, appears that the defibrillator fires and heart rate then back down to 120. She denies any sensation of the defibrillator firing. She is still mentating without difficulty and denies any chest pain or shortness of breath. Heart rate now climbing into the 170s 180s, 190s, even low 200s, concerning for sustained V. tach. Dr. Price ordered a single dose of amiodarone. Heart rate responded now into the 140s and 50s with low blood pressure now 90s over 50s. She is still mentating fine. Discussed CODE STATUS both with patient and daughter who was in the room, able to review records from just 2 days ago through her primary care provider. Patient confirms she is a DNR, DNI. Able to review the Medtronic interrogation, 3 shocks for VT-VF, 1 failed. MACHINE CERAMIC COATER pacing is effective less than 90% of the time. Case initially discussed with our cardiology team at 0 [phone], Dr. Shannon, ultimately Dr. Price took the phone call, please see his note for recommendations. Dr. Price also spoke with the transfer center at [facility], please see his note. Dr. Price assumed care of the patient with the multiple consultations. Medical Records Medical records reviewed: Yes I reviewed the patient's medical records. Imaging Data Radiologic Study: Attestation: I personally reviewed and interpreted this imaging study as follows: Imaging: X-Ray Radiologist's impression: Exam(s) XR PORTABLE CHEST AP EXAM: XR PORTABLE CHEST AP CLINICAL HISTORY: pacemaker fire x 4 TECHNIQUE: COMPARISON: CR CHEST 2 VIEWS PA,LAT from 09/11/2014 FINDINGS: The heart appears mildly enlarged. There is a transvenous cardiac pacemaker in position. Lungs appear predominantly clear with a calcified right lower lobe granuloma. No gross pleural effusion on this frontal film. IMPRESSION: No evidence of acute process ECG Data Attestation: I personally reviewed and interpreted this ECG (s) as follows: Interpretation: Please see official report by Dr. Price. Atrial sensed ventricular paced rhythm, ventricular rate of 112. Biventricular paced rhythm. <Gurvinder Price MD - Last Filed: 11/12/20 11:33> 8:37 -- I was consulted by VALERIO Zapien to assist with care of patient due to critical nature of disease. Initial EKG reviewed and concerning for an attempt to overdrive pace. I went to evaluate the patient she was mentating well with no discomfort. She then went into a wide-complex irregular rhythm. She continued to have no pain and continues to mentate well. Repeat EKG concerning for V. tach versus A. fib with aberrancy. I immediately called [facility] transfer center to request transfer and also called our financial aid counselor in house to consult. Patient was given amiodarone 150 mg IV and blood pressure did decrease into the 70s. She was given IV fluid bolus of 250 mL and pressure has improved. Heart rate improved to 140s but she continues to have wide-complex irregular rhythm. --VALERIO Zapien did speak with the patient and her daughter about her end-of-life wishes and she confirms that she is DNR DNI which is consistent with recent COLST form on file. 9:15 --I called [facility] transfer center again to again request transfer - they have paged the retail account specialist. They noted that they were looking for capacity and were considering having patient transported to emergency department. 9:24 --I spoke with retail account specialist at [facility] and discussed ED presentation course, she reviewed EKGs and feels rhythm consistent with A. fib with aberrancy. I specifically requested transfer and she noted that patient did not need to be transferred at this time and recommended place magnet and continue with amiodarone treatment. I then spoke with in house financial aid counselor Dr. Shannon, discussed ED presentation and course, and I requested that he evaluate the patient. -- Repeat BP improved. 10:18 -- I spoke again with Dr. Shannon and he had spoken with EP at [facility] and plan will be to admit here to here to ICU. Dr. Shannon recommends continuing amiodarone infusion. Repeat BP decreased to 69/54. Patient mentating well. Will give additinal crystalloid bolus 250ml. Consider conversion if BP does not improve or mentation declines. 1100 -- BP improved. HPI <VALERIO Warren - Last Filed: 11/10/20 10:53> General Mode of arrival: ambulatory. Date/Time Provider Initiated Documentation: 11/10/20 08:22. Limitations to Documentation: no limitations. Information obtained by: patient. HPI Narrative: This is a 80-year-old female, past medical history that includes cardiomyopathy, chronic renal disease, presence of combination internal defibrillator and pacemaker, colostomy, A. fib, takes apixaban daily, presenting to the ER stating that her defibrillator has fired 4 times since 430 this morning when it awoke her from sleep. Patient states yesterday she had a lack of appetite but otherwise felt okay. This morning she states that the defibrillator has fired 4 times, she reports feeling nauseous, but denies any other symptoms. She denies recent illness, trauma, headache, neck pain, chest pain, shortness breath, abdominal pain, numbness, tingling, weakness in her extremities. No change of her medications. She states that the pacemaker has been present for approximately 10 years, defibrillator approximately 4, she has been dealing with A. fib for the last 2 years, last saw her cardiology team at [facility] approximately 6 months ago for normal checkup. Related Data Home Medications Medication Instructions Recorded Confirmed acetaminophen [Tylenol] 975 mg PO PRN 08/22/12 11/10/20 amoxicillin 500 mg capsule 2,000 mg PO PRN cap 12/02/18 11/10/20 cholecalciferol (vitamin D3) 2,000 unit PO DAILY 01/25/19 11/10/20 [Vitamin D3] varicella-zoster glycoE vacc-[id number] 0.5 ml IM ONCE #1 each 11/04/19 11/04/19 adj(PF) 50 mcg/0.5 mL IM susp, kit docusate sodium 100 mg tablet 100 mg PO DAILY 05/02/20 11/10/20 febuxostat 40 mg tablet 40 mg PO DAILY 05/02/20 11/10/20 sacubitril 24 mg-valsartan 26 mg 1 tab PO BID 05/02/20 11/10/20 tablet prednisone 5 mg tablet 5 mg PO DAILY #90 tab-cap 07/04/20 11/10/20 esomeprazole magnesium 40 mg 40 mg PO DAILY #90 cap 08/10/20 11/10/20 capsule,delayed release apixaban 5 mg tablet 5 mg PO BID #180 tab 11/07/20 11/10/20 ezetimibe 10 mg tablet 10 mg PO DAILY #90 tab 11/07/20 11/10/20 furosemide 40 mg tablet 40 mg PO DAILY #90 tab 11/07/20 11/10/20 metoprolol succinate 50 mg 50 mg PO DAILY 11/07/20 11/10/20 tablet,extended release 24 hr spironolactone 25 mg tablet 12.5 mg PO DAILY #90 tab-cap 11/07/20 11/10/20 Previous Rx's Medication Instructions Recorded varicella-zoster glycoE vacc-AS01B 0.5 ml IM ONCE #1 each 11/04/19 adj(PF) 50 mcg/0.5 mL IM susp, kit prednisone 5 mg tablet 5 mg PO DAILY #90 tab-cap 07/04/20 esomeprazole magnesium 40 mg 40 mg PO DAILY #90 cap 08/10/20 capsule,delayed release apixaban 5 mg tablet 5 mg PO BID #180 tab 11/07/20 ezetimibe 10 mg tablet 10 mg PO DAILY #90 tab 11/07/20 furosemide 40 mg tablet 40 mg PO DAILY #90 tab 11/07/20 spironolactone 25 mg tablet 12.5 mg PO DAILY #90 tab-cap 11/07/20 Allergies Allergy/AdvReac Type Severity Reaction Status Date / Time allopurinol Allergy Severe rash all Verified 11/10/20 08:21 over body Lvqzcey-Aax-Aer Reductase AdvReac Severe Muscle pain Verified 11/10/20 08:21 Inhibitor codeine AdvReac Intermediate HALLUCINATI Verified 11/10/20 08:21 ONS General Stated Complaint: Chest Pain NICOLE: 3 Review of Systems <VALERIO Warren - Last Filed: 11/10/20 10:53> Constitutional Constitutional: Denies fatigue, Denies fever(s) and Denies headache(s) Eyes Eyes: Denies change in vision ENT Ears, Nose, Mouth, and Throat: Denies headache(s) and Denies neck pain Cardiovascular Cardiovascular: Denies chest pain and Denies dyspnea Respiratory Respiratory: Denies cough and Denies dyspnea Gastrointestinal Gastrointestinal: Denies abdominal pain, Reports nausea and Reports vomiting Musculoskeletal Musculoskeletal: Denies back pain and Denies neck pain Integumentary/Breasts Skin/Breast: Denies rash Neurologic Neurologic: Denies headache(s) Endocrine Endocrine: Denies fatigue Hematologic/Lymphatic Hematologic/Lymphatic: Denies easy bleeding and Denies easy bruising PFSH <VALERIO Warren - Last Filed: 11/10/20 10:53> Medical History Cardiomyopathy (08/04/08) 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 Heart disease Father , 62 Heart disease Stroke Bleeding ulcer Sister Heart disease CHF Ovarian cancer Sister , 72 CHF (congestive heart failure) Sister Diabetes Depression Stroke Brother Hyperlipidemia Colon cancer Brother Colon cancer Brother , HEART PROBLEMS at age 81. Heart disease CHF (congestive heart failure) Hypertension Maternal Grandfather , reaction to aspirin at age 71. Asthma Paternal Grandfather , age 84 Heart disease [place] Maternal Grandmother , Ruptured appendix at age 63. Ruptured appendix Paternal Grandmother , Infection s/p surgery at age 44. No problems noted. Son Essential hypertension Hyperlipidemia Son Essential hypertension Hyperlipidemia Parkinson disease Son Essential hypertension Hyperlipidemia Son No problems noted. Son Myocardial infarction Daughter No problems noted. Social History Smoking/Tobacco Use Status: Never Smoking risk assessment performed?: Yes Alcohol Intake: never Drug use: Never Substance use type: does not use Caregiver/Support person: No Household members: children Housing: house Communication Needs: Corrective Lenses Do you need help understanding health information?: Rarely Pets and animals: No Sexually active: No Do you think of yourself as: straight/heterosexual Current gender identity: female What is your relationship status?: How often do you talk on the phone with friends or family?: three or more times per week How often do you get together with friends or relatives?: twice per week How often do you attend sabianist or taoism services?: 4 or more times per year Panel score (0-1 are the most socially isolated patients): 2 What type of physical activity do you participate in: weight lifting Duration: < 15 minutes/day Frequency: 3-4 times per week Geri/Taoist: Latter-Day Special geri needs: No Seatbelt use: always Helmet use: No Drive intox or ride w/intox mobile lounge driver: No Do you feel safe at home: Yes Do you feel safe in your relationship?: Yes Additional Social history: lives with friend daughter nearby Exam <VALERIO Warren - Last Filed: 11/10/20 10:53> Const General: cooperative, no acute distress and anxious Orientation: alert and awake HENPA Head: normal to inspection, normocephalic and atraumatic Face and sinus: normal facial exam Mouth: moist mucous membranes Eyes General: appearance normal, both eyes and all related structures Conjunctivae: conjunctivae normal Neck Neck: normal visual inspection, full ROM, trachea midline and supple Resp Effort & Inspection: normal respiratory effort and able to speak in complete sentences Auscultation: clear to auscultation bilaterally Cardio Rate: tachycardic (122) Rhythm: regular rhythm GI Palpation: soft, not firm, no guarding, no pulsatile masses and nontender Auscultation: normal bowel sounds and other (Colostomy present, normal stoma) Back/Spine/Pelvis Back: No back tenderness Skin General skin exam: no rashes or lesions noted Neuro General: patient alert, patient awake, patient oriented x3, moves all extremities and no focal motor deficits Cognition: normal cognition Speech: speech normal Motor: muscle tone normal throughout Sensory Exam: no sensory deficits noted Extrem General: normal to inspection, full ROM and capillary refill normal Psych Appearance: grossly normal Mental Status: mental status grossly normal Course <VALERIO Warren Last Filed: 11/10/20 10:53> Vital Signs Vital signs: Vital Signs Temperature 36.3 C L 11/10/20 08:18 Pulse 114 H 11/10/20 08:18 Blood Pressure 126/56 L 11/10/20 08:18 Pulse Oximetry 96 11/10/20 08:18 Temperature 36.3 C L 11/10/20 08:18 Temperature Source Temporal Artery Scan 11/10/20 08:18 Pulse 114 H 11/10/20 08:18 Pulse 128 H 11/10/20 08:23 Respiratory Rate 20 11/10/20 08:24 Respiratory Effort Non-Labored 11/10/20 08:24 Respiratory Depth Normal 11/10/20 08:24 Respiratory Pattern Normal 11/10/20 08:24 Blood Pressure 126/56 L 11/10/20 08:18 Blood Pressure Position Sitting 11/10/20 08:18 Pulse Oximetry 95 11/10/20 08:23 Oxygen Delivery Method Room Air 11/10/20 08:18 Oxygen Flow Rate 0 11/10/20 08:18 Critical Care Time <VALERIO Warren - Last Filed: 11/10/20 10:53> Critical Care Time Critical Care Time: Yes Total Critical Care Time: 50 Attestation: Upon my evaluation, this patient had a high probability of clinically significant, life-threatening deterioration due to their current medical conditions, which required my direct attention, intervention, and personal management. I have personally provided greater than 30 minutes of critical care time exclusive of the time spend on separately billable procedures. Time includes obtaining a history, examining the patient, pulse oximetry, review of laboratory data, radiology results, discussion with consultants, arranging urgent treatment with development of a management plan, evaluation of patient's response to treatment, and monitoring for potential decompensation. Interventions were performed as documented above.
--- NOTE | 2020-11-10 08:45 | RT.EKG_ITS ---
APPROVED REPORT Exam: Resting ECG Reason for Exam: [facility] Patient Location: E HR:179 bpm ECG Measurements Heart Rate 179 AXIS LA 101 P 172 QRSd 143 QRS -24 QT 282 T 160 QTc 486 Conclusion Extreme tachycardia with wide complex, no further rhythm analysis attempted
[2020-11-10] MEDS: Amiodarone 150 MG/3 ML VIAL IVP (08:51)
[2020-11-10 08:52] LABS: Abs Immature Grans 0.07 10^3/uL (0.0-0.06); Absolute Basophil Count 0.03 10^3/uL (0.0-0.2); Absolute Monocyte Count 2.14 10^3/uL (0.1-0.8); Absolute Neutrophil Count 10.09 10^3/uL (1.2-6.7); Basophils % 0.2; Eosinophils % 0.1; HCT 37.4 % (36.0-46.0); HGB 12.3 g/dL (11.2-15.7); Immature Grans % 0.5; Lymphocytes % 11.2; MCH 31.1 pg (27.0-33.0); MCHC 32.9 % (32.0-36.0); MCV 94.4 fL (80-95); MPV 10.1 fL (8.0-11.0); Monocytes % 15.4; Neutrophils % 72.6; Nucleated RBC 0 %; Platelet Count 216 10^3/uL (130-400); RBC 3.96 10^6/uL (3.93-5.22); RDW 12.7 % (11.7-14.6); RDW-SD 44.5 fL
[2020-11-10 08:55] LABS: Absolute Eosinophil Count 0.01 10^3/uL (0.0-0.7); Absolute Lymphocyte Count 1.56 10^3/uL (1.2-3.4)
[2020-11-10 09:08] LABS: INR 1.2 (0.9-1.1); PTT Activated 31.3 sec (21.0-27.5); Prothrombin Time 12.2 sec (9.3-11.0)
[2020-11-10 09:10] LABS: Diff Comment Diff Reviewed; RBC Morphology Normal
[2020-11-10 09:13] LABS: ALT 18 U/L (14-59); AST 17 U/L (15-37); Albumin 3.2 g/dL (3.4-5.0); Alkaline Phosphatase 54 U/L (46-116); Anion Gap 8.7 mmol/L (3-11); BUN 21 mg/dL (7-18); Bilirubin, Total 0.9 mg/dL (0.2-1.0); CO2 28.3 mmol/L (21.0-32.0); CREATININE 1.6 mg/dL (0.55-1.02); Calcium 9.1 mg/dL (8.5-10.1); Chloride 102 mmol/L (98-107); Estimated GFR 31.17 (mL/min/1.73m2); Glucose 99 mg/dL (74-106); Magnesium 1.6 mg/dL (1.8-2.4); NT-proBNP 14741 pg/mL (<300); Potassium 3.7 mmol/L (3.5-5.1); Sodium 139 mmol/L (136-145); Total Protein 6.4 g/dL (6.4-8.2)
[2020-11-10 09:14] LABS: Troponin I 0.15 ng/mL (<0.06)
[2020-11-10 09:20] LABS: Source Nasal/Nares
[2020-11-10 09:24] LABS: D-Dimer 1344 ng/mlFEU (<500)
[2020-11-10] MEDS: MAGNESIUM SULFATE 1 GM/100 ML BAG IVPB (10:16)
--- NOTE | 2020-11-10 10:20 | CCONE_ITS ---
Date of service: 11/10/20 Time of Service: 10:20 Assessment and Plan Assessment and plan (1) Atrial fibrillation with RVR: Status: Acute (2) Elevated troponin: Status: Acute (3) Cardiomyopathy: Status: Acute Assessment and plan: 1. Darek romero with RVR: Per chart review at [facility] it looks as though she had an episode of this back in 2019 requiring amnio at that point to. Given her tenuous blood pressure I think getting her on a good dose of amiodarone is probably her best option right now. I would consider introduction of beta-blockade perhaps metoprolol at low-dose if her blood pressure tolerates. Would stay away from diltiazem given her significant cardiomyopathy. Would switch to heparin drip from apixaban just in case further intervention is necessary. She should eventually go back home on apixaban ?Plan for finishing of amiodarone load orally as an outpatient ?Restart home beta-lilly as pressures allow. 2. Cardiomyopathy: She is not terribly fluid overloaded today on exam nor does she have evidence of cardiogenic shock. That said, her BNP is elevated as is her creatinine and she is obviously at risk for that given her cardiomyopathy and tachycardia as well as severe MR. ?Would recommend gentle IV diuresis with Lasix as decongesting her heart could help control her rate as well. Baseline creatinine looks to be about 1.2. ?Would hold off on spironolactone as well as Entresto given her labile blood pressures but hope to restart these medications before too long. 3. Elevated troponin: Likely a type II non-STEMI in the setting of A. fib with RVR. Patient is not having any symptoms of chest pain. Would initiate heparin drip as above (patient was previously on apixaban) as well as a full dose aspirin. Do not think she needs Plavix at this point unless her symptoms change or her troponins continue to climb ?Trend troponins ?Cannot get echocardiogram over the weekend but will consider doing as an outpatient this coming week Qualifiers: Cardiomyopathy type: unspecified Qualified Code(s): I42.9 - Cardiomyopathy, unspecified History of Present Illness History of Present Illness Chief Complaint: ICD fire Narrative: Ms. 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 fib previously on amnio who presents now after being shocked at home multiple times. In the ED she was found to be in a wide-complex irregular tachycardia consistent with A. fib with RVR at baseline left bundle branch block. She has since been started on amiodarone with her heart rates responding somewhat down from the 180s down to the 150s. Her blood pressures have been tenuous but she continues to be alert and conversant. Upon arrival to the ICU she had converted to normal sinus rhythm with blood pressures in the 90s. Maps in the 50s. She is feeling well though she thinks she might be a little short of breath when she lies flat. Review of Systems All systems reviewed & are unremarkable except as noted in HPI and below PFSH Medical History Cardiomyopathy (08/04/08) Idiopathic witn normal coronary arteries 2008 [employer]-d 2013 EF <30% Kidney disease CHRONIC Knee pain (01/24/12) RIGHT KNEE PAIN S/P TKR 2012 Presence of combination internal cardiac defibrillator (ICD) and pacemaker (11/26/17) Medtronic TABLE GAMES DUAL RATE SUPERVISOR-D 11/19/2017 Seborrheic keratoses Surgical History Appendectomy (~1972) Cholecystectomy herniography x 2 Replacement of total knee joint Family History Mother , OLD AGE at age 98. Heart disease Father , 62 Heart disease Stroke Bleeding ulcer Sister Heart disease CHF Ovarian cancer Sister , 72 CHF (congestive heart failure) Sister Diabetes Depression Stroke Brother Hyperlipidemia Colon cancer Brother Colon cancer Brother , HEART PROBLEMS at age 81. Heart disease CHF (congestive heart failure) Hypertension Maternal Grandfather , reaction to aspirin at age 71. Asthma Paternal Grandfather , age 84 Heart disease [place] Maternal Grandmother , Ruptured appendix at age 63. Ruptured appendix Paternal Grandmother , Infection s/p surgery at age 44. No problems noted. Son Essential hypertension Hyperlipidemia Son Essential hypertension Hyperlipidemia Parkinson disease Son Essential hypertension Hyperlipidemia Son No problems noted. Son Myocardial infarction Daughter No problems noted. Social History Smoking/Tobacco Use Status: Never Smoking risk assessment performed?: Yes Alcohol Intake: never Drug use: Never Substance use type: does not use Caregiver/Support person: No Household members: children Housing: house Communication Needs: Corrective Lenses Do you need help understanding health information?: Rarely Pets and animals: No Sexually active: No Do you think of yourself as: straight/heterosexual Current gender identity: female What is your relationship status?: How often do you talk on the phone with friends or family?: three or more times per week How often do you get together with friends or relatives?: twice per week How often do you attend quaker or latter-day services?: 4 or more times per year Panel score (0-1 are the most socially isolated patients): 2 What type of physical activity do you participate in: weight lifting Duration: < 15 minutes/day Frequency: 3-4 times per week Geri/Gnosticist: Caodaism Special geri needs: No Seatbelt use: always Helmet use: No Drive intox or ride w/intox team driver: No Do you feel safe at home: Yes Do you feel safe in your relationship?: Yes Additional Social history: lives with friend daughter nearby Exam Const General: comfortable and no acute distress HENMT Head: normocephalic and atraumatic Eyes General: appearance normal, both eyes and all related structures Resp Effort & Inspection: normal respiratory effort Auscultation: clear to auscultation bilaterally Cardio Jugular venous pressure: no JVD Palpation: normal PMI Rate: tachycardic Rhythm: abnormal rhythm Heart Sounds: S1 normal and murmur systolic holo and III/ GI Palpation: soft Auscultation: normoactive bowel sounds Skin General skin exam: no rashes or lesions noted Extrem General: normal to inspection and no clubbing, cyanosis or edema Psych Appearance: grossly normal Results Last Vital Signs Temp 36.3 C L 11/10/20 08:18 Pulse 102 H 11/10/20 10:12 Resp 30 H 11/10/20 10:12 BP 69/51 L 11/10/20 10:12 Pulse Ox 99 11/10/20 10:12 Labs Result diagrams: 11/10/20 08:37 11/10/20 08:37 Labs: Laboratory Results - last 24 hr 11/10/20 11/10/20 11/10/20 08:37 08:37 08:37 WBC 13.90 H RBC 3.96 Hgb 12.3 Hct 37.4 MCV 94.4 MCH 31.1 MCHC 32.9 RDW 12.7 Plt Count 216 MPV 10.1 Immature Gran % 0.5 Neutrophils % 72.6 Lymphocytes % 11.2 Monocytes % 15.4 Eosinophils % 0.1 Basophils % 0.2 Nucleated RBC % 0 Absolute Neutrophils 10.09 H Absolute Lymphocytes 1.56 Absolute Monocytes 2.14 H Absolute Eosinophils 0.01 Absolute Basophils 0.03 RBC Morphology Normal PT 12.2 H INR 1.2 H APTT 31.3 H D-Dimer 1344 H Sodium 139 Potassium 3.7 Chloride 102 Carbon Dioxide 28.3 Anion Gap 8.7 BUN 21 H Creatinine 1.6 H Estimated GFR/1.73 m2 31.17 Glucose 99 Calcium 9.1 Magnesium 1.6 L Total Bilirubin 0.9 AST 17 ALT 18 Alkaline Phosphatase 54 Troponin I 0.15 H* NT-Pro-B Natriuret Pep 14987 H Total Protein 6.4 Albumin 3.2 L COVID-19 Source 11/10/20 09:14 WBC RBC Hgb Hct MCV MCH MCHC RDW Plt Count MPV Immature Gran % Neutrophils % Lymphocytes % Monocytes % Eosinophils % Basophils % Nucleated RBC % Absolute Neutrophils Absolute Lymphocytes Absolute Monocytes Absolute Eosinophils Absolute Basophils RBC Morphology PT INR APTT D-Dimer Sodium Potassium Chloride Carbon Dioxide Anion Gap BUN Creatinine Estimated GFR/1.73 m2 Glucose Calcium Magnesium Total Bilirubin AST ALT Alkaline Phosphatase Troponin I NT-Pro-B Natriuret Pep Total Protein Albumin COVID-19 Source Nasal/Nares EKG interpretations Dysrhythmias Supraventricular dysrhythmia: atrial fibrillation Blocks, axis, hypertrophy, ST abn AV and intraventricular conduction: left bundle branch block (fixed/intermitten t, complete/incomplete)
[2020-11-10 10:24] LABS: COVID-19 PCR Negative (Negative)
[2020-11-10] MEDS: Normal Saline 250 ML IV (10:33)
[2020-11-10] MEDS: Normal Saline 500 ML 250 ML IV (11:36)
[2020-11-10 12:02] LABS: Troponin I 0.24 ng/mL (<0.06)
[2020-11-10] MEDS: Normal Saline 1,000 ML 125 ML IV ×2 (13:30→21:54)
[2020-11-10] MEDS: MAGNESIUM SULFATE 2 GM/50 ML BAG IVPB (14:29)
--- NOTE | 2020-11-10 16:04 | HPE_ITS ---
Date of service: 11/10/20 Time of Service: 16:05 Assessment and Plan Assessment and plan (1) Atrial fibrillation with RVR: Status: Acute Assessment and plan: Previously on Amiodarone for afib with RVR. Cardiology consulted and initiated amiodarone; bolused, then drip. When stable recommends 400mg po BID for 1 week, then 400mg daily for 1 week then 200mg daily. AC now with heparin drip; stopped apixiban (In the event she needs an intervention). Cardiology recommends BB wehn BP allows (avoiding cardizem d/t cardiomyopathy). Telemetry in the ICU (2) Ventricular tachyarrhythmia: Status: Chronic Assessment and plan: Pacemaker and implanted defibrillator. Defibrillator has fired x4 at home before admission. (3) Elevated troponin: Status: Acute (4) Cardiomyopathy: Status: Acute Assessment and plan: BNP elevated but clinically doesn't show significant volume overload. Hypotensive but not symptomatic. Not in cardiogenic shock. Urine outpt is poor; creatinine at baseline of 1.6. Lasix 40mg IV now and monitor for output and renal function. Consider a lasix drip. holding spironolactone and Entresto. . Qualifiers: Cardiomyopathy type: unspecified Qualified Code(s): I42.9 - Cardiomyopathy, unspecified (5) Kidney disease: Status: Acute Assessment and plan: Stable. Monitor while diuresing. (6) Hyperlipidemia: Status: Acute Assessment and plan: On Zetia but no statin. Qualifiers: Hyperlipidemia type: mixed hyperlipidemia Qualified Code(s): E78.2 - Mixed hyperlipidemia History of Present Illness History of Present Illness Chief Complaint: Activation of her defibrillator Narrative: This is a 80-year-old female, past medical history that includes cardiomyopathy, chronic renal disease, presence of combination internal defibrillator and pacemaker, colostomy, A. fib, takes apixaban daily, presenting to the ER stating that her defibrillator had fired 4 times since 430 the morning of presentation; it awoke her from sleep. Patient states yesterday she had a lack of appetite but otherwise felt okay. On day of admission she noted some nausea; no emesis. She denies recent illness, trauma, headache, neck pain, chest pain, shortness breath, abdominal pain, numbness, tingling, weakness in her extremities. No change of her medications. She stated that the pacemaker has been present for approximately 10 years, defibrillator approximately 4, she has been dealing with A. fib for the last 2 years, last saw her cardiology team at [facility] approximately 6 months ago for normal checkup. Cardiology consulted in the ED after [facility] cardiology initially consulted. EKG read as afib with abharency. Amiodarone bolus and drip initiated. Her WBC count was 13.90. Hgb 12.3. Na and K normal. Creatinine 1.6; baseline range. Mg low at 1.6. IV Mg replacement given; total of 3 g. NTProBNP elevatedat [address]. Troponin initially 0.15, repeat 0.24 then 0.21. Her urine output was minimal and a macdonald catheter was placed. 3. Elevated troponin: Likely a type II non-STEMI in the setting of A. fib with RVR. Patient is not having any symptoms of chest pain. Would initiate heparin drip as above (patient was previously on apixaban) as well as a full dose aspirin. 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 Heart disease Father , 62 Heart disease Stroke Bleeding ulcer Sister Heart disease CHF Ovarian cancer Sister , 72 CHF (congestive heart failure) Sister Diabetes Depression Stroke Brother Hyperlipidemia Colon cancer Brother Colon cancer Brother , HEART PROBLEMS at age 81. Heart disease CHF (congestive heart failure) Hypertension Maternal Grandfather , reaction to aspirin at age 71. Asthma Paternal Grandfather , age 84 Heart disease [place] Maternal Grandmother , Ruptured appendix at age 63. Ruptured appendix Paternal Grandmother , Infection s/p surgery at age 44. No problems noted. Son Essential hypertension Hyperlipidemia Son Essential hypertension Hyperlipidemia Parkinson disease Son Essential hypertension Hyperlipidemia Son No problems noted. Son Myocardial infarction Daughter No problems noted. Social History Smoking/Tobacco Use Status: Never Smoking risk assessment performed?: Yes Alcohol Intake: never Drug use: Never Substance use type: does not use Caregiver/Support person: No Household members: children Housing: house Communication Needs: Corrective Lenses Do you need help understanding health information?: Rarely Pets and animals: No Sexually active: No Do you think of yourself as: straight/heterosexual Current gender identity: female What is your relationship status?: How often do you talk on the phone with friends or family?: three or more times per week How often do you get together with friends or relatives?: twice per week How often do you attend taoism or sikh services?: 4 or more times per year Panel score (0-1 are the most socially isolated patients): 2 What type of physical activity do you participate in: weight lifting Duration: < 15 minutes/day Frequency: 3-4 times per week Geri/Gnosticism: Jewish Special geri needs: No Seatbelt use: always Helmet use: No Drive intox or ride w/intox line haul driver: No Do you feel safe at home: Yes Do you feel safe in your relationship?: Yes Additional Social history: lives with friend daughter nearby Meds Allergies and Home Medications Allergies Allergy/AdvReac Type Severity Reaction Status Date / Time allopurinol Allergy Severe rash all Verified 11/10/20 08:21 over body Culcppm-Ftp-Zsg Reductase AdvReac Severe Muscle pain Verified 11/10/20 08:21 Inhibitor codeine AdvReac Intermediate HALLUCINATI Verified 11/10/20 08:21 ONS Home Medications Medication Instructions Recorded Confirmed Type acetaminophen [Tylenol] 975 mg PO PRN 08/22/12 11/10/20 History amoxicillin 500 mg capsule 2,000 mg PO PRN cap 12/02/18 11/10/20 History cholecalciferol (vitamin D3) 2,000 unit PO DAILY 01/25/19 11/10/20 History [Vitamin D3] varicella-zoster glycoE [id number] 0.5 ml IM ONCE #1 each 11/04/19 11/04/19 Rx adj(PF) 50 mcg/0.5 mL IM susp, kit docusate sodium 100 mg tablet 100 mg PO DAILY 05/02/20 11/10/20 History febuxostat 40 mg tablet 40 mg PO DAILY 05/02/20 11/10/20 History sacubitril 24 mg-valsartan 26 mg 1 tab PO BID 05/02/20 11/10/20 History tablet prednisone 5 mg tablet 5 mg PO DAILY #90 tab-cap 07/04/20 11/10/20 Rx esomeprazole magnesium 40 mg 40 mg PO DAILY #90 cap 08/10/20 11/10/20 Rx capsule,delayed release apixaban 5 mg tablet 5 mg PO BID #180 tab 11/07/20 11/10/20 Rx ezetimibe 10 mg tablet 10 mg PO DAILY #90 tab 11/07/20 11/10/20 Rx furosemide 40 mg tablet 40 mg PO DAILY #90 tab 11/07/20 11/10/20 Rx metoprolol succinate 50 mg 50 mg PO DAILY 11/07/20 11/10/20 History tablet,extended release 24 hr spironolactone 25 mg tablet 12.5 mg PO DAILY #90 tab-cap 11/07/20 11/10/20 Rx Exam Const General: cooperative and no acute distress Nutritional Appearance: average body habitus Orientation: alert and oriented x3 Neck Neck: full ROM and no JVD Resp Effort & Inspection: normal respiratory effort Auscultation: clear to auscultation bilaterally Cardio Rate: regular rate Rhythm: regular rhythm GI Inspection: other (ostomy with appliance in place.) Palpation: soft and nontender Skin General skin exam: no rashes or lesions noted Extrem General: no pedal edema and no calf tenderness Psych Appearance: grossly normal Mental Status: mental status grossly normal Mood: congruent mood Affect: normal affect Results Labs Result diagrams: 11/10/20 08:37 11/10/20 08:37 Labs: Laboratory Results - last 24 hr 11/10/20 11/10/20 11/10/20 08:37 08:37 08:37 WBC 13.90 H RBC 3.96 Hgb 12.3 Hct 37.4 MCV 94.4 MCH 31.1 MCHC 32.9 RDW 12.7 Plt Count 216 MPV 10.1 Immature Gran % 0.5 Neutrophils % 72.6 Lymphocytes % 11.2 Monocytes % 15.4 Eosinophils % 0.1 Basophils % 0.2 Nucleated RBC % 0 Absolute Neutrophils 10.09 H Absolute Lymphocytes 1.56 Absolute Monocytes 2.14 H Absolute Eosinophils 0.01 Absolute Basophils 0.03 RBC Morphology Normal PT 12.2 H INR 1.2 H APTT 31.3 H D-Dimer 1344 H Sodium 139 Potassium 3.7 Chloride 102 Carbon Dioxide 28.3 Anion Gap 8.7 BUN 21 H Creatinine 1.6 H Estimated GFR/1.73 m2 31.17 Glucose 99 Calcium 9.1 Magnesium 1.6 L Total Bilirubin 0.9 AST 17 ALT 18 Alkaline Phosphatase 54 Troponin I 0.15 H* NT-Pro-B Natriuret Pep 18940 H Total Protein 6.4 Albumin 3.2 L COVID-19 Source SARS-CoV-2 (PCR) 11/10/20 11/10/20 09:14 11:37 WBC RBC Hgb Hct MCV MCH MCHC RDW Plt Count MPV Immature Gran % Neutrophils % Lymphocytes % Monocytes % Eosinophils % Basophils % Nucleated RBC % Absolute Neutrophils Absolute Lymphocytes Absolute Monocytes Absolute Eosinophils Absolute Basophils RBC Morphology PT INR APTT D-Dimer Sodium Potassium Chloride Carbon Dioxide Anion Gap BUN Creatinine Estimated GFR/1.73 m2 Glucose Calcium Magnesium Total Bilirubin AST ALT Alkaline Phosphatase Troponin I 0.24 H* NT-Pro-B Natriuret Pep Total Protein Albumin COVID-19 Source Nasal/Nares SARS-CoV-2 (PCR) Negative Last Vital Signs Temp 37.1 C 11/10/20 12:57 Pulse 74 11/10/20 15:01 Resp 18 11/10/20 15:01 BP 88/39 L 11/10/20 15:01 Pulse Ox 98 11/10/20 15:01
[2020-11-10 16:12] LABS: Troponin I 0.21 ng/mL (<0.06)
[2020-11-10] MEDS: ALBUMIN HUMAN 25 GM/100 ML BTL IV (16:49)
[2020-11-10] MEDS: Furosemide 20 MG/2 ML VIAL IVP (17:58)
[2020-11-10] MEDS: Normal Saline Flush 10 ML SYR IVP (17:59)
[2020-11-10 18:33] LABS: Bilirubin Negative (Negative); Blood Small (Negative); Clarity Sl Cloudy (Clear); Glucose Negative (Negative); Ketones Negative (Negative); Leukocyte Esterase Negative (Negative); Nitrite Negative (Negative); Urobilinogen 0.2 EU/dL (Up TO 0.2)
[2020-11-10 18:45] LABS: Bacteria Moderate HPF (Negative); C & S Indicated? No/Sq. Contamination; Casts 5-10 Hyaline LPF (Negative); Crystals Negative HPF (Negative); Epithelial Cells Moderate HPF (Negative); Mucus Trace (Negative); Other Cells Few Transitional (Negative)
[2020-11-11] VITALS (96 sets, daily range): BP systolic 61–166; BP diastolic 30–87; PULSE 58–198; RESP 18–42; TEMP 36.5–36.8; O2SAT 85–100
[2020-11-11 02:58] LABS: PTT Activated 54.3 sec (21.0-27.5)
[2020-11-11] MEDS: Normal Saline 1,000 ML 125 ML IV (05:57)
[2020-11-11 07:21] LABS: Abs Immature Grans 0.05 10^3/uL (0.0-0.06); Absolute Basophil Count 0.02 10^3/uL (0.0-0.2); Absolute Lymphocyte Count 1.29 10^3/uL (1.2-3.4); Absolute Monocyte Count 1.48 10^3/uL (0.1-0.8); Basophils % 0.2; Eosinophils % 0.4; HCT 31.2 % (36.0-46.0); HGB 10.1 g/dL (11.2-15.7); Immature Grans % 0.4; Lymphocytes % 11.4; MCH 30.8 pg (27.0-33.0); MCHC 32.4 % (32.0-36.0); MCV 95.1 fL (80-95); MPV 10.5 fL (8.0-11.0); Monocytes % 13.1; Neutrophils % 74.5; Nucleated RBC 0 %; Platelet Count 186 10^3/uL (130-400); RBC 3.28 10^6/uL (3.93-5.22); RDW 13.2 % (11.7-14.6); RDW-SD 46.4 fL; WBC 11.33 10^3/uL (4.4-10.8)
[2020-11-11 07:22] LABS: Absolute Eosinophil Count 0.05 10^3/uL (0.0-0.7); Absolute Neutrophil Count 8.44 10^3/uL (1.2-6.7)
[2020-11-11 07:35] LABS: ALT 16 U/L (14-59); AST 15 U/L (15-37); Albumin 2.8 g/dL (3.4-5.0); Alkaline Phosphatase 49 U/L (46-116); Anion Gap 7.2 mmol/L (3-11); BUN 26 mg/dL (7-18); Bilirubin, Total 0.3 mg/dL (0.2-1.0); CO2 26.8 mmol/L (21.0-32.0); CREATININE 1.4 mg/dL (0.55-1.02); Calcium 8.2 mg/dL (8.5-10.1); Chloride 107 mmol/L (98-107); Estimated GFR 36.37 (mL/min/1.73m2); Glucose 97 mg/dL (74-106); Potassium 3.8 mmol/L (3.5-5.1); Sodium 141 mmol/L (136-145); Total Protein 5.3 g/dL (6.4-8.2)
[2020-11-11 07:37] LABS: Magnesium 2.5 mg/dL (1.8-2.4)
[2020-11-11 07:38] LABS: Troponin I 0.17 ng/mL (<0.06)
--- NOTE | 2020-11-11 08:20 | PGE_ITS ---
Date of Service Date of service: 11/11/20 Time of Service: 14:58 Assessment and Plan Assessment and plan (1) Atrial fibrillation with RVR: Status: Resolved Assessment and plan: Rate controlled. Continue amiodarone drip with plans to switch to PO tomorrow. Beta lilly currently on hold - consider resumption. (2) Ventricular tachyarrhythmia: Status: Chronic Assessment and plan: in Setting of low EF (32%). Continue amiodarone, monitor in the ICU. (3) Elevated troponin: Status: Acute Assessment and plan: Agree with cardiology that this is likely Type 2 NST SURAJ due to Afib/RVR and AICD discharges. No clear evidence of ACS. Echo when able. Continue heparin gtt. (4) FUO (fever of unknown origin): Status: Acute Assessment and plan: Blood cultures obtained to r/o bacteremia/endocarditis. No evidence of urinary or pulmonary disease. Possible GI etiology as well - nauseated yesterday. Finally, ? possible adrenal insufficiency - less likely - sodium normal. Await blood culture results. If GI sx recur, obtain abdominal imaging. 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 Resume lasix. Qualifiers: Cardiomyopathy type: unspecified Qualified Code(s): I42.9 - Cardiomyopathy, unspecified (6) DVT prophylaxis: Status: Acute Assessment and plan: On heparin gtt (7) Discharge planning issues: Status: Acute Assessment and plan: DNR/DNI Ok with defibrillation, however. Keep in ICU: total critical Care time 40 minutes. Subjective Subjective Interval history since last seen: Feels better today. Denies dizziness, chest pain, shortnes of breath, nausea. Had Nausea this morning. Good ostomy output. No abdominal pain. In Afib, rate controlled. Some bigeminy-trigeminy. 7 am: 8 beats Vtach asymptomatic while awake, 7 beats at 9 am. Had a temp of 38.3, was tachycardic with that, spontaneously resolved without tylenol. Remains on amiodarone gtt - per pharmacy, due to lower dose, not yet ready to wean until tomorrow. SBP 102/57. On heparin gtt. Has a macdonald - UOP 800 cc overnight. Speaks Israeli fluently. Exam Narrative Exam Narrative: General: Very pleasant elderly female, A&Ox3 HEENT: EOMI, MMM Heart: Seemingly regular rate/rhythm Lungs: Rales at B bases Abdomen: soft, nontender, nondistended Extremities: trace edema BLE's. Objective Last Vital Signs Temp 36.8 C 11/11/20 04:00 Pulse 79 11/11/20 07:00 Resp 25 H 11/11/20 07:01 BP 92/45 L 11/11/20 07:00 Pulse Ox 98 11/11/20 07:01 Laboratory Results - last 24 hr 11/10/20 11/10/20 11/10/20 08:37 08:37 08:37 WBC 13.90 H RBC 3.96 Hgb 12.3 Hct 37.4 MCV 94.4 MCH 31.1 MCHC 32.9 RDW 12.7 Plt Count 216 MPV 10.1 Immature Gran % 0.5 Neutrophils % 72.6 Lymphocytes % 11.2 Monocytes % 15.4 Eosinophils % 0.1 Basophils % 0.2 Nucleated RBC % 0 Absolute Neutrophils 10.09 H Absolute Lymphocytes 1.56 Absolute Monocytes 2.14 H Absolute Eosinophils 0.01 Absolute Basophils 0.03 RBC Morphology Normal PT 12.2 H INR 1.2 H APTT 31.3 H D-Dimer 1344 H Sodium 139 Potassium 3.7 Chloride 102 Carbon Dioxide 28.3 Anion Gap 8.7 BUN 21 H Creatinine 1.6 H Estimated GFR/1.73 m2 31.17 Glucose 99 Calcium 9.1 Magnesium 1.6 L Total Bilirubin 0.9 AST 17 ALT 18 Alkaline Phosphatase 54 Troponin I 0.15 H* NT-Pro-B Natriuret Pep 11909 H Total Protein 6.4 Albumin 3.2 L Urine Color Urine Clarity Urine pH Ur Specific Walker Urine Protein Urine Ketones Urine Blood Urine Nitrite Urine Bilirubin Urine Urobilinogen Ur Leukocyte Esterase Urine RBC Urine WBC Ur Epithelial Cells Urine Crystals Urine Bacteria Urine Casts Urine Mucus Urine Other Ur Culture Indicated? Urine Glucose COVID-19 Source SARS-CoV-2 (PCR) 11/10/20 11/10/20 11/10/20 09:14 11:37 15:41 WBC RBC Hgb Hct MCV MCH MCHC RDW Plt Count MPV Immature Gran % Neutrophils % Lymphocytes % Monocytes % Eosinophils % Basophils % Nucleated RBC % Absolute Neutrophils Absolute Lymphocytes Absolute Monocytes Absolute Eosinophils Absolute Basophils RBC Morphology PT INR APTT D-Dimer Sodium Potassium Chloride Carbon Dioxide Anion Gap BUN Creatinine Estimated GFR/1.73 m2 Glucose Calcium Magnesium Total Bilirubin AST ALT Alkaline Phosphatase Troponin I 0.24 H* 0.21 H* NT-Pro-B Natriuret Pep Total Protein Albumin Urine Color Urine Clarity Urine pH Ur Specific Walker Urine Protein Urine Ketones Urine Blood Urine Nitrite Urine Bilirubin Urine Urobilinogen Ur Leukocyte Esterase Urine RBC Urine WBC Ur Epithelial Cells Urine Crystals Urine Bacteria Urine Casts Urine Mucus Urine Other Ur Culture Indicated? Urine Glucose COVID-19 Source Nasal/Nares SARS-CoV-2 (PCR) Negative 11/10/20 11/11/20 11/11/20 18:18 02:40 06:25 WBC RBC Hgb Hct MCV MCH MCHC RDW Plt Count MPV Immature Gran % Neutrophils % Lymphocytes % Monocytes % Eosinophils % Basophils % Nucleated RBC % Absolute Neutrophils Absolute Lymphocytes Absolute Monocytes Absolute Eosinophils Absolute Basophils RBC Morphology PT INR APTT 54.3 H D-Dimer Sodium Potassium Chloride Carbon Dioxide Anion Gap BUN Creatinine Estimated GFR/1.73 m2 Glucose Calcium Magnesium 2.5 H Total Bilirubin AST ALT Alkaline Phosphatase Troponin I 0.17 H* NT-Pro-B Natriuret Pep Total Protein Albumin Urine Color Yellow Urine Clarity Sl Cloudy Urine pH 5.0 Ur Specific Walker 1.020 Urine Protein Trace H Urine Ketones Negative Urine Blood Small H Urine Nitrite Negative Urine Bilirubin Negative Urine Urobilinogen 0.2 Ur Leukocyte Esterase Negative Urine RBC 5-10 H Urine WBC 3-5 Ur Epithelial Cells Moderate Urine Crystals Negative Urine Bacteria Moderate Urine Casts 5-10 Hyaline Urine Mucus Trace Urine Other Few Transitional Ur Culture Indicated? No/Sq. Contamination Urine Glucose Negative COVID-19 Source SARS-CoV-2 (PCR) 11/11/20 11/11/20 06:25 06:25 WBC 11.33 H RBC 3.28 L Hgb 10.1 L D Hct 31.2 L MCV 95.1 H MCH 30.8 MCHC 32.4 RDW 13.2 Plt Count 186 MPV 10.5 Immature Gran % 0.4 Neutrophils % 74.5 Lymphocytes % 11.4 Monocytes % 13.1 Eosinophils % 0.4 Basophils % 0.2 Nucleated RBC % 0 Absolute Neutrophils 8.44 H Absolute Lymphocytes 1.29 Absolute Monocytes 1.48 H Absolute Eosinophils 0.05 Absolute Basophils 0.02 RBC Morphology PT INR APTT D-Dimer Sodium 141 Potassium 3.8 Chloride 107 Carbon Dioxide 26.8 Anion Gap 7.2 BUN 26 H Creatinine 1.4 H Estimated GFR/1.73 m2 36.37 Glucose 97 Calcium 8.2 L Magnesium Total Bilirubin 0.3 AST 15 ALT 16 Alkaline Phosphatase 49 Troponin I NT-Pro-B Natriuret Pep Total Protein 5.3 L Albumin 2.8 L Urine Color Urine Clarity Urine pH Ur Specific Walker Urine Protein Urine Ketones Urine Blood Urine Nitrite Urine Bilirubin Urine Urobilinogen Ur Leukocyte Esterase Urine RBC Urine WBC Ur Epithelial Cells Urine Crystals Urine Bacteria Urine Casts Urine Mucus Urine Other Ur Culture Indicated? Urine Glucose COVID-19 Source SARS-CoV-2 (PCR)
[2020-11-11] MEDS: Docusate Sodium 100 MG CAP PO (08:46)
[2020-11-11] MEDS: predniSONE 5 MG TAB PO (08:47)
[2020-11-11] MEDS: Ezetimibe 10 MG TAB PO (08:47)
[2020-11-11] MEDS: Esomeprazole 40 MG CAPCR PO (08:47)
[2020-11-11] MEDS: Furosemide 20 MG/2 ML VIAL IVP (16:12)
[2020-11-11] MEDS: Normal Saline Flush 10 ML SYR IVP ×2 (16:12→20:42)
--- NOTE | 2020-11-11 17:45 | RT.EKG_ITS ---
APPROVED REPORT Exam: Resting ECG Reason for Exam: [facility] Patient Location: I HR:107 bpm ECG Measurements Heart Rate 107 AXIS WV 43 P 139 QRSd 143 QRS 251 QT 402 T 66 QTc 552 Conclusion Ventricular-paced complexes...other complexes also detected Biventricular paced rhythm...non-simultaneous bi-vent pacing
--- NOTE | 2020-11-11 17:45 | RT.EKG_ITS ---
APPROVED REPORT Exam: Resting ECG Reason for Exam: [facility] Patient Location: I HR:179 bpm ECG Measurements Heart Rate 179 AXIS MT 94 P 164 QRSd 137 QRS -12 QT 283 T 159 QTc 488 Conclusion Afib with RVR. Underlying LBBB
--- NOTE | 2020-11-11 18:00 | RT.EKG_ITS ---
APPROVED REPORT Exam: Resting ECG Reason for Exam: [facility] Patient Location: I HR:108 bpm ECG Measurements Heart Rate 108 AXIS [place] 42 P 0 QRSd 164 QRS 267 QT 408 T 62 QTc 574 Conclusion Ventricular-paced complexes...other complexes also detected Biventricular paced rhythm...non-simultaneous bi-vent pacing
--- NOTE | 2020-11-11 18:15 | RT.EKG_ITS ---
APPROVED REPORT Exam: Resting ECG Reason for Exam: CONVERTED Patient Location: I HR:83 bpm ECG Measurements Heart Rate 83 AXIS AL 134 P 45 QRSd 132 QRS -75 QT 407 T 86 QTc 480 Conclusion Atrial-sensed ventricular-paced rhythm...ventricular pacing tracks p-waves Biventricular paced rhythm...non-simultaneous bi-vent pacing
--- NOTE | 2020-11-11 18:15 | RT.EKG_ITS ---
APPROVED REPORT Exam: Resting ECG Reason for Exam: [facility] Patient Location: I HR:84 bpm ECG Measurements Heart Rate 84 AXIS CO 167 P -88 QRSd 121 QRS 250 QT 433 T 202 QTc 511 Conclusion Atrial-sensed ventricular-paced rhythm...ventricular pacing tracks p-waves
[2020-11-11] MEDS: Metoprolol 5 MG/5 ML VIAL (18:43)
[2020-11-11] MEDS: Furosemide 20 MG/2 ML VIAL 10 MG IVP ×2 (19:09→20:04)
[2020-11-11] MEDS: LORazepam 2 MG/ML VIAL 0.5 MG IVP (19:22)
[2020-11-11 19:41] LABS: Troponin I 0.08 ng/mL (<0.06)
--- NOTE | 2020-11-11 20:15 | DI.RAD_ITS ---
Exam(s) XR PORTABLE CHEST AP EXAM: XR PORTABLE CHEST AP CLINICAL HISTORY: suspected fluid overload TECHNIQUE: COMPARISON: CR XR PORTABLE CHEST AP from 11/10/2020 FINDINGS: There is a transvenous cardiac pacemaker in position. The heart is enlarged. There are suspected bi lateral pleural effusions which were confirmed on CT on November 12. There is question of slight CHF. Appropriate follow-up studies requested. IMPRESSION: RADIATION DOSE DELIVERED: Total DLP
[2020-11-11] MEDS: MORPHine 2 MG/ML SYR IVP (20:19)
--- NOTE | 2020-11-11 21:17 | DI.VRAD_ITS ---
PROCEDURE INFORMATION: Exam: XR Chest Exam date and time: 11/11/2020 8:29 PM Age: 80 years old Clinical indication: Other: ? Fluid overload; Prior surgery; Surgery date: 3-7 days post-operative TECHNIQUE: Imaging protocol: XR of the chest. Views: 1 view. COMPARISON: CR XR PORTABLE CHEST AP 11/10/2020 8:51 AM FINDINGS: Tubes, catheters and devices: Left chest wall pacemaker. Lungs: Mild pulmonary vascular congestion. Pleural spaces: No pneumothorax. Small pleural effusions bilaterally. Heart/Mediastinum: Cardiac size cannot be accurately assessed in this projection. Bones/joints: Unremarkable. IMPRESSION: 1. Mild pulmonary vascular congestion. 2. Small pleural effusions bilaterally. Dictated and Authenticated by: King Washburn MD. Ordering:ROSALINDA Reese MD
[2020-11-11] MEDS: Metoprolol 12.5 MG TAB PO (22:00)
[2020-11-11 22:27] LABS: Troponin I 0.09 ng/mL (<0.06)
[2020-11-12] VITALS (83 sets, daily range): BP systolic 61–107; BP diastolic 32–75; PULSE 49–158; RESP 2–37; TEMP 35.5–37.5; O2SAT 88–100
--- NOTE | 2020-11-12 | DI.CT_ITS ---
Exam(s) CT CHEST/ABD/PEL WO EXAM: CT CHEST/ABD/PEL WO CLINICAL HISTORY: GNR bacteremia, nausea. No PO or IV contrast, hypoxia ? CHF TECHNIQUE: CT examination of the chest, abdomen, and pelvis was performed without contrast administr ation. COMPARISON: CT CT ABDOMEN PELVIS W from 02/27/2019 FINDINGS: There is a transvenous cardiac pacemaker. The heart is moderately enlarged. There are moderate-sized bilateral pleural effusions. There are areas of atelectasis or consolidation in both lung bases. Mild streaky perihilar radiodens ities noted and there are mild changes of mosaic attenuation in the lungs. There is focal patchy consolidation in the left upper lobe suspicious for pneumonitis period. There is no mediastinal or hilar adenopathy. Pulmonary arteries are unremarkable with no evidence of pulmonary embolic disease. Thoracic aorta and major branches appear intact with no evidence of aneurysm or dissection. No bony abnormality seen in the thorax. The liver is normal appearance. Prior cholecystectomy noted. Bile ducts are CT normal. No abnormality seen involving the spleen. Pancreas appears intact. The adrenals are unremarkable in appearance. The kidneys appear intact with no evidence of hydroneph rosis or nephrolithiasis. There is a Gray catheter in the urinary bladder. Urinary bladder wall ap pears thickened. Question cystitis, please correlate clinically. Periodontist structures grossly unremarkable for age. Abdominal aorta is of normal diameter period. No significant abdominal wall hernia seen. No significant abdominal or pelvic adenopathy. Appendix is not specifically visualized but there is no evidence of appendicitis or diverticulitis. There is a descending colostomy period there is herniated loop of nonobstructed transverse colon at t he ostomy site in the subcutaneous soft tissues. IMPRESSION: Moderate-sized bilateral pleural effusions and cardiomegaly, suspect CHF. Probable multifocal pneumo catrachito involving left upper lobe and both lung bases. No other significant acute findings. RADIATION DOSE DELIVERED: 1,127.92mGy.cm Total DLP 1,127.92mGy.cm Total DLP 18.22mGy CTDIvol
[2020-11-12] MEDS: Metoprolol 12.5 MG TAB PO ×2 (05:00→09:51)
--- NOTE | 2020-11-12 05:57 | NUR.NOTE ---
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 No CP ro SOB. Remained asleep. Had 0400 dose of metoprolol 12.5 mg po @ 0500.
[2020-11-12 07:44] LABS: Abs Immature Grans 0.09 10^3/uL (0.0-0.06); Absolute Eosinophil Count 0.04 10^3/uL (0.0-0.7); Absolute Lymphocyte Count 2.68 10^3/uL (1.2-3.4); Absolute Monocyte Count 1.85 10^3/uL (0.1-0.8); Absolute Neutrophil Count 13.28 10^3/uL (1.2-6.7); Basophils % 0.2; Eosinophils % 0.2; HCT 38.1 % (36.0-46.0); Immature Grans % 0.5; Lymphocytes % 14.9; MCH 30.5 pg (27.0-33.0); MCHC 31.5 % (32.0-36.0); MCV 96.7 fL (80-95); MPV 10.6 fL (8.0-11.0); Monocytes % 10.3; Neutrophils % 73.9; Nucleated RBC 0 %; RBC 3.94 10^6/uL (3.93-5.22); RDW 13.2 % (11.7-14.6); RDW-SD 47.8 fL; WBC 17.97 10^3/uL (4.4-10.8)
[2020-11-12 07:46] LABS: Absolute Basophil Count 0.04 10^3/uL (0.0-0.2)
[2020-11-12] MEDS: Ondansetron 4 MG/2 ML VIAL IVP ×3 (07:46→16:14)
[2020-11-12 08:01] LABS: Anion Gap 7.8 mmol/L (3-11); BUN 31 mg/dL (7-18); CO2 27.2 mmol/L (21.0-32.0); Calcium 8.9 mg/dL (8.5-10.1); Chloride 101 mmol/L (98-107); Glucose 162 mg/dL (74-106); Magnesium 2.3 mg/dL (1.8-2.4); Potassium 4.7 mmol/L (3.5-5.1); Sodium 136 mmol/L (136-145)
[2020-11-12 08:02] LABS: Diff Comment Agrees w/ Instrument; Platelet Count 239 10^3/uL (130-400); RBC Morphology Normal
--- NOTE | 2020-11-12 08:14 | PGE_ITS ---
Date of Service Date of service: 11/12/20 Time of Service: 11:00 Assessment and Plan Assessment and plan (1) Gram negative sepsis: Status: Acute Assessment and plan: Blood culture positive for GNR. Did have a fever on 11/10/20. Does have leucocytosis. This appears to be accompanied by ELMA, acute resp. failure w/ hypoxia, acute CHF. Started on empiric ceftriaxone 2 grams q24hrs today. Source: UA negative for a UTI. Chest imaging c/w multifocal pneumonia, and this was likely present on admission as the patient did feel unwell prior to her presentation here. COVID-19 is ruled out, but does have acute CHF, so some of this could be pulmonary edema. Aspiration PNA vs CAP seem most likely. Does have AICD in place and will require a conversation with ID once we know the organism as to how likely it is that the AICD is seeded - would she require explantation? Provide stress dose steroids - on chronic prednisone, and with lower sodiums/nausea/hypotension, adrenal insufficiency is probable at this point. Repeat blood cultures in am. Consult Critical Care medicine. (2) Atrial fibrillation with RVR: Status: Resolved Assessment and plan: Recurred in wide complex morphology yesterday evening, now converted to NSR again. Continue amiodarone gtt at 1 mg/hr through tomorrow evening, and switch to PO amiodarone 200 mg once the infusion is completed, per [facility]. Tolerating PO metoprolol. Keep magnet in place for AICD not to misfire as it seems to be confusing the patient's wide complex Afib morphology with Vtach. This will need to be reprogrammed - will discuss with cardiology if it's possible to do that while the patient is here. Keep in the ICU. Continue heparin gtt. Afib could be driven by underlying infection. (3) Acute respiratory failure with hypoxia: Status: Acute Assessment and plan: Multifactorial, due to acute CHF and multifocal pneumonia. Treat infection. Started on gentle lasix gtt (more gentle on Cr since bolus does of lasix, and she is in ELMA. Monitor O2 requirements). Wean O2 as tolerated. (4) CAP (community acquired pneumonia): Status: Acute Assessment and plan: As above. Given culture data, I think empiric ceftriaxone should be sufficient. (5) Acute adrenal insufficiency: Status: Acute Assessment and plan: Provide stress dose steroids. (6) Ventricular tachyarrhythmia: Status: Ruled-out Assessment and plan: The patient was in atrial fibrillation with wide complexes rather than in Vtach. Her AICD needs to be reprogrammed. Read discussion re Afib above. (7) Acute on chronic systolic CHF (congestive heart failure): Status: Acute Assessment and plan: Start lasix gtt. ELMA could be cardiorenal, in which case it would improve with lasix. However, will monitor Cr carefully as well as i/o's and daily weights. Obtain echocardiogram. (8) Acute kidney injury superimposed on chronic kidney disease: Status: Acute Assessment and plan: As above. Cr did not improve with IVF, which have now been d/c'ed. Monitor Cr on lasix gtt. Monitor I/O's and daily weights. No evidence of intrinsic pathology or obstructive uropathy on CT. Gray in place. UA negative for a UTI. (9) Elevated troponin: Status: Acute Assessment and plan: Agree with cardiology that this is likely Type 2 NSTEMI due to Afib/RVR and AICD discharges. No clear evidence of ACS. Echo ordered for tomorrow. Continue heparin gtt, though this is being primarily used for Afib. (10) Cardiomyopathy: Status: Chronic Assessment and plan: Dilated [employer], LVEF 32%. As above - repeat echo. Qualifiers: Cardiomyopathy type: unspecified Qualified Code(s): I42.9 - Cardiomyopathy, unspecified (11) DVT prophylaxis: Status: Acute Assessment and plan: On heparin gtt (12) Discharge planning issues: Status: Acute Assessment and plan: DNR/DNI Ok with defibrillation/cardioversion, however. Keep in ICU: total critical Care time 180 minutes. Subjective Subjective Interval history since last seen: Ms Nichols had an episode of wide complex tachycardia with HR up to 180-200 yesterday evening at around 17:35. She converted back to NSR after receiving 5 mg of IV lopressor and 150 mg bolus of amiodarone. The event lasted about 40 minutes. She was initially asymptomatic, but became hypotensive and nauseated with vomiting with these medications, however, and required IVF. With this her oxygen requirement went from room air to 4 L. When BPs improved, she was given a low dose of lasix with good UOP. Initial suspicion was that the patient was having Vtach and transfer to a tertiary care facility was sought. There were no [place] available at either [facility] [place] [facility]. [facility] did agree to place her on a waiting list for Friday, but cardiology did not feel comfortable providing recommendations on how to manage a device [place] by [facility] [facility] [place] consult was again requested. Dr Umaña felt that the rhythm was Afib with BBB morphology, recommended increasing amiodarone gtt to 1 mg/hr and continuing this through Friday night, at which point the patient would be switched to PO amiodarone 200 mg. The patient was also recommended to be started on low dose lopressor. She feels a little bit better this morning. Amiodarone is going at 1 mg/hr. She had one short run of Afib with BBB morphology overnight - otherwise, has remained in NSR. Nauseated, but better. a little short of breath. Wheezing. Denies dizziness, chest pain, abdominal pain, changes to ostomy output. States she had been feeling nauseated for a couple of days prior to the AICD misfiring. BP 107/63, HR 99. O2 sat 2L - 88% - 4L now, 93%. Remains with a magnet applied to the AICD. Blood cultures positive for GNR. Exam Narrative Exam Narrative: General: Very pleasant elderly female, A&Ox3, looks ill HEENT: EOMI, MMM Heart: Again seemingly RRR, +JOHANNE Lungs: Rales at B bases Abdomen: soft, nontender, nondistended Extremities: trace edema BLE's. Objective Last Vital Signs Temp 36.3 C L 11/12/20 04:00 Pulse 74 11/12/20 05:47 Resp 23 11/12/20 05:47 BP 86/40 L 11/12/20 05:47 Pulse Ox 95 11/12/20 05:47 Laboratory Results - last 24 hr 11/11/20 11/11/20 11/12/20 18:45 22:02 06:35 WBC 17.97 H D RBC 3.94 Hgb 12.0 Hct 38.1 D MCV 96.7 H MCH 30.5 MCHC 31.5 L RDW 13.2 Plt Count 239 MPV 10.6 Immature Gran % 0.5 Neutrophils % 73.9 Lymphocytes % 14.9 Monocytes % 10.3 Eosinophils % 0.2 Basophils % 0.2 Nucleated RBC % 0 Absolute Neutrophils 13.28 H Absolute Lymphocytes 2.68 Absolute Monocytes 1.85 H Absolute Eosinophils 0.04 Absolute Basophils 0.04 RBC Morphology Normal Sodium Potassium Chloride Carbon Dioxide Anion Gap BUN Creatinine Estimated GFR/1.73 m2 Glucose Calcium Magnesium Troponin I 0.08 H* 0.09 H* 11/12/20 07:30 WBC RBC Hgb Hct MCV MCH MCHC RDW Plt Count MPV Immature Gran % Neutrophils % Lymphocytes % Monocytes % Eosinophils % Basophils % Nucleated RBC % Absolute Neutrophils Absolute Lymphocytes Absolute Monocytes Absolute Eosinophils Absolute Basophils RBC Morphology Sodium 136 Potassium 4.7 D Chloride 101 Carbon Dioxide 27.2 Anion Gap 7.8 BUN 31 H Creatinine 2.0 H Estimated GFR/1.73 m2 24.10 Glucose 162 H Calcium 8.9 Magnesium 2.3 Troponin I 0.10 H* Objective Narrative Objective Narrative: CT chest/abdomen/pelvis w/o contrast: Moderate-sized bilateral pleural effusions and cardiomegaly, suspect CHF. Probable multifocal pneumonia involving left upper lobe and both lung bases. No other significant acute findings.
--- NOTE | 2020-11-12 08:15 | RT.EKG_ITS ---
APPROVED REPORT Exam: Resting ECG Reason for Exam: follow up Afib Patient Location: I HR:93 bpm ECG Measurements Heart Rate 93 AXIS MI 126 P 7 QRSd 105 QRS -15 QT 379 T 16 QTc 472 Conclusion Atrial-sensed ventricular-paced rhythm...ventricular pacing tracks p-waves
[2020-11-12] MEDS: Normal Saline Flush 10 ML SYR IVP ×4 (09:05→17:52)
[2020-11-12] MEDS: Ezetimibe 10 MG TAB PO (09:51)
[2020-11-12] MEDS: Pantoprazole 40 MG VIAL IVP (09:51)
[2020-11-12] MEDS: Docusate Sodium 100 MG CAP PO (09:51)
[2020-11-12] MEDS: predniSONE 5 MG TAB PO (09:51)
--- NOTE | 2020-11-12 11:14 | PHA.REVIEW ---
Pharmacy Admission Review - Admission Clinical Review (Last Reviewed 11/10/20 @ 16:17 by Ryan Lugo MD) Discharge planning issues (Acute) DVT prophylaxis (Acute) FUO (fever of unknown origin) (Acute) Elevated troponin (Acute) Kidney disease (Acute) Hyperlipidemia (Acute 01/24/12) allopurinol Allergy (Severe, Verified 11/10/20 08:21) rash all over body Ksfmrnu-Bvf-Ybh Reductase Inhibitor Adverse Reaction (Severe, Verified 11/10/20 08:21) Muscle pain codeine Adverse Reaction (Intermediate, Verified 11/10/20 08:21) HALLUCINATIONS Resuscitation Status DNR/DNI Height 5 ft 4 in Weight 69.6 kg Afib w/RVR, ?Vtach, AICD firing - Comments Comments/Follow Ups: BP's soft, One temp recorded 11/10 @ 8pm; blood cultures drawn and one tube shows gram negative rods on 11/12/20-Ceftriaxone 2gram started, also possible Pneumonia via chest xray. Will need cardiology followup to reprogram ICD, follow Micro/Antibioitic coverage, daily weights/I&O-today's weight is up over 2kg from admission - Renal Dosing Renal Dosing: BUN 31 mg/dL (7-18) H 11/12/20 07:30 Creatinine 2.0 mg/dL (0.55-1.02) H 11/12/20 07:30 Medications needing adjustments: Reviewed (CrCl~20ml/min) - Anticoagulation Anticoagulation: Hgb 12.0 g/dL (11.2-15.7) 11/12/20 06:35 Hct 38.1 % (36.0-46.0) D 11/12/20 06:35 Plt Count 239 10^3/uL (130-400) 11/12/20 06:35 INR 1.2 (0.9-1.1) H 11/10/20 08:37 Creatinine 2.0 mg/dL (0.55-1.02) H 11/12/20 07:30 Therapeutic Anticoagulation: Reviewed Medications: Heparin (Heparin infusion) - Opiate Usage Evaluate Pain Scale/Pains Meds: N/A - Relevant Labs Sodium 136 mmol/L (136-145) 11/12/20 07:30 Potassium 4.7 mmol/L (3.5-5.1) D 11/12/20 07:30 Chloride 101 mmol/L (98-107) 11/12/20 07:30 Magnesium 2.3 mg/dL (1.8-2.4) 11/12/20 07:30 Electrolytes, C-Reactive P, ESR: Reviewed (WBC up 17.97 (also on Prednisone 5mg daily) SCr up from admission, Troponin's +) - DM Control DM Control: Glucose 162 mg/dL (74-106) H 11/12/20 07:30 Insulin Dosing: Reviewed (Not diabetic) - Heart Failure/VA Heart Failure/VA: Troponin I 0.10 ng/mL (<0.06) H* 11/12/20 07:30 NT-Pro-B Natriuret Pep 79506 pg/mL (<300) H 11/10/20 08:37 EF%, HIEU's, B-Blockers, Diuretics: Intervened (Amiodarone infusion started in ER for presummed Vtach, rate not initiated according to protocol, so patient did not receive proper amount, MD aware. Subsequent bolus' and rate increase, has rec'd aprox 2gram Amiodarone as of 11/12/20 morning. Metoprolol oral and IV prn with parameters) - BP Control BP Control: Blood Pressure [Left Arm] 84/46 Blood Pressure [Left Arm] 90/38 Blood Pressure 86/40 Blood Pressure 84/46 Blood Pressure 81/44 Blood Pressure 90/42 Blood Pressure 90/38 - Qtc Review If Elevated: Reviewed (QTC 486 (Vtach? Afib)) - IV to PO Switch IV Medications: Reviewed (Amiodarone infusion running, now >48 hours, will convert to oral aiming for a 6-10 gram loading dose over the course of 1-2 weeks, than reduce to maintenance dose of 200-400mg daily) - Home Meds Home Med List reviewed: Reviewed (Has been on Apixiban at home) Relevent Home Meds Not ordered & why?: Spirionolactone & Entresto held, looks like Entresto last RX fill was in June? changed?, Lasix being dosed as 1x orders, Coreg (on Metoprolol), Apixiban-on Heparin infusion - Current meds Current Medication Order Review: Intervened (using Patient's own Febuxostat 40mg daily (Uloric))
[2020-11-12] MEDS: Levalbuterol 1.25 MG/3 ML UPD VIAL (11:20)
[2020-11-12 11:39] LABS: Bilirubin Negative (Negative); Blood Large (Negative); Clarity Sl Cloudy (Clear); Glucose Negative (Negative); Ketones Negative (Negative); Leukocyte Esterase Negative (Negative); Nitrite Negative (Negative); Specific Gravity >= 1.030 (1.005-1.025)
--- NOTE | 2020-11-12 11:40 | DI.VRAD_ITS ---
PROCEDURE INFORMATION: Exam: CT Chest Without Contrast; Diagnostic Exam date and time: 11/12/2020 10:14 AM Clinical indication: Other: Gnr bacteremia, nausea. No po or iv contrast, hypoxia, ? chf TECHNIQUE: Imaging protocol: Diagnostic computed tomography of the chest without contrast. COMPARISON: No relevant prior studies available. FINDINGS: Tubes, catheters and devices: An AICD is noted. Lungs: Airspace consolidation at the right lung base. Mild compressive atelectasis at the left lung base. Nodular airspace opacities with surrounding hazy density in the lung parenchyma in the anterior aspect of the left upper lobe near the apex. Ground-glass attenuation in the lungs. Mild smooth thickening of the interlobular septa in the upper lung zones. Calcified, old granulomatous disease of right lung. Pleural spaces: Small to moderate right pleural effusion. Small left pleural effusion. Heart: Mild cardiomegaly. Aorta: Unremarkable. No aortic aneurysm. Lymph nodes: Mediastinal lymph node calcification, consistent with old granulomatous disease. No adenopathy. Bones/joints: No acute or suspicious osseous abnormalities. Moderate kyphosis of the thoracic spine. Bridging syndesmophytes of the spine. Soft tissues: Unremarkable. IMPRESSION: 1. Findings concerning for left upper lobe pneumonia. 2. Small to moderate right pleural effusion with subjacent atelectasis and/or pneumonic infiltrate at the right lung base. 3. Small left pleural effusion. 4. Mild CHF. 5. Bridging syndesmophytes of the spine, suspicious for ankylosing spondylitis. PROCEDURE INFORMATION: Exam: CT Abdomen And Pelvis Without Contrast Exam date and time: 11/12/2020 10:14 AM Age: 80 years old Clinical indication: Other: Gnr bacteremia, nausea. No po or iv contrast, hypoxia, ? chf TECHNIQUE: Imaging protocol: Computed tomography of the abdomen and pelvis without contrast. COMPARISON: CT ABDOMEN PELVIS W 02/27/2019 11:12 PM FINDINGS: Limitations: Evaluation is somewhat limited due to lack of oral or IV contrast. Liver: Normal. No mass. Gallbladder and bile ducts: The gallbladder is surgically absent. No biliary dilatation. Pancreas: Normal. No ductal dilation. Spleen: Normal. No splenomegaly. Adrenal glands: Normal. No mass. Kidneys and ureters: Normal. No hydronephrosis. Stomach and bowel: A descending colostomy is noted. Scattered colonic diverticula, without evidence of diverticulitis. A parastomal hernia contains nonobstructed transverse colon. No other gross bowel abnormalities. No bowel obstruction. Appendix: The appendix is unable to be delineated, however no inflammatory changes are seen in the expected region of the appendix. Intraperitoneal space: Trace pelvic ascites. No free air. Vasculature: Unremarkable. No abdominal aortic aneurysm. Lymph nodes: Unremarkable. No enlarged lymph nodes. Urinary bladder: A Gray catheter is seen within the urinary bladder. Mild diffuse prominence of the wall of the urinary bladder, which may be related to underdistention. No perivesical fat stranding noted. Reproductive: Unremarkable as visualized. Bones/joints: No acute or suspicious osseous abnormalities. Moderate multilevel degenerative changes of the lumbar spine, with findings including disc space narrowing, marginal osteophytes and degenerative changes in the vertebral endplates, greatest at L3-L4. Soft tissues: Unremarkable. Other findings: A Cora pouch is noted. IMPRESSION: 1. Mild diffuse prominence of the wall of the urinary bladder, which may be related to underdistention. Correlate with laboratory data. 2. Trace pelvic ascites. 3. Diverticulosis. Dictated and Authenticated by: Lilli Mckenzie MD. Ordering:HARLAN Mclaughlin MD
[2020-11-12 11:48] LABS: WBC 0-2 HPF (0-5)
[2020-11-12 11:49] LABS: Bacteria Many HPF (Negative); Crystals Negative HPF (Negative); Epithelial Cells Many HPF (Negative); Mucus Trace (Negative); Other Cells Few Transitional (Negative); RBC 20-50 HPF (0-2)
[2020-11-12 11:50] LABS: C & S Indicated? C&S Done As Ordered; Casts 3-5 Hyaline LPF (Negative)
[2020-11-12] MEDS: cefTRIAXone 2 GM/50 ML BAG IVPB (11:50)
[2020-11-12] MEDS: Hydrocortisone SOD SUC. 100 MG VIAL IVP (13:02)
[2020-11-12 13:29] LABS: ALT 61 U/L (14-59); AST 69 U/L (15-37); Alkaline Phosphatase 93 U/L (46-116); Bilirubin, Direct 0.2 mg/dL (0.0-0.2); Bilirubin, Total 0.4 mg/dL (0.2-1.0); Total Protein 6.5 g/dL (6.4-8.2)
[2020-11-12 14:33] LABS: Lactate 1.3 mmol/L (0.6-1.4)
[2020-11-12] MEDS: Acetaminophen 325 MG TAB 650 MG PO (14:57)
--- NOTE | 2020-11-12 16:08 | DI.RAD_ITS ---
Exam(s) XR SHOULDER LT 1V EXAM: XR SHOULDER LT 1V CLINICAL HISTORY: left shoulder pain. TECHNIQUE: 2D digital imaging was performed. COMPARISON: CR XR SHOULDER LT COMPLETE 2+V from 01/06/2019 FINDINGS: Exam is limited by positioning. BONES: No acute fracture is present. No bony destructive lesion is seen. JOINTS: No dislocation present. Degenerative changes glenohumeral joint and AC joint. SOFT TISSUE: Normal. IMPRESSION: Exam is limited by positioning and overlying pacemaker. Degenerative changes. DATA REPOSITORY: RADIATION DOSE DELIVERED:
[2020-11-12 16:20] LABS: C-Reactive Protein > 25.00 mg/dL (0.0-0.3)
--- NOTE | 2020-11-12 16:36 | DI.VRAD_ITS ---
PROCEDURE INFORMATION: Exam: XR Left Shoulder Exam date and time: 11/12/2020 3:10 PM Age: 80 years old Clinical indication: Pain; Shoulder; Left; Patient HX: Cardiac pad unable to be removed TECHNIQUE: Imaging protocol: XR Left shoulder. Views: 1 view. COMPARISON: CR XR SHOULDER LT COMPLETE 2+V 01/06/2019 3:44 PM FINDINGS: Bones/joints: Bone mineralization appears decreased. Joint space fairly well preserved. Soft tissues: Normal. Other findings: There is overlying artifact from the left-sided cardiac pad and pacemaker. No evidence for acute abnormality. IMPRESSION: Slightly limited exam. No evidence for acute abnormality. Dictated and Authenticated by: Opal Barrios MD. Ordering:HARLAN Mclaughlin MD
[2020-11-12] MEDS: Diclofenac 1% Gel 100 GM TUBE TP ×2 (16:38→20:05)
[2020-11-12 17:00] LABS: Lactate 1.6 mmol/L (0.6-1.4)
[2020-11-12] MEDS: VANCOMYCIN 1,000 MG in Normal Saline 250 ML 166.6666 MG IVPB (17:48)
[2020-11-12] MEDS: Hydrocortisone SOD SUC. 100 MG VIAL 50 MG IVP (17:52)
[2020-11-12] MEDS: Normal Saline 500 ML 166 ML IV (18:08)
--- NOTE | 2020-11-12 19:33 | NUR.NOTE ---
Pt's daughter Rebekah calls, reports that pt had colonoscopy thru ostomy site (est. 2 months ago) at [facility] [place] - DR stopped during and told them tissue too tender/thin to continue Rebekah asks if colon could have leaked causing current illness. Relative of pt passed on concern of knee hardware/pacing wires being infected. Assured daughter that these concerns would be shared with the MD.
[2020-11-12 20:03] LABS: Lactate 1.5 mmol/L (0.6-1.4)
[2020-11-13] VITALS (108 sets, daily range): BP systolic 72–164; BP diastolic 33–134; PULSE 44–154; RESP 13–32; TEMP 36–36.1; O2SAT 88–100
[2020-11-13] MEDS: Acetaminophen 325 MG TAB 650 MG PO (00:39)
[2020-11-13] MEDS: Hydrocortisone SOD SUC. 100 MG VIAL 50 MG IVP ×4 (00:40→17:41)
[2020-11-13] MEDS: Normal Saline 250 ML IV (01:00)
[2020-11-13] MEDS: Normal Saline 500 ML 10 ML IV (03:39)
[2020-11-13 07:13] LABS: ESR 48 mm/hr (0-30)
--- NOTE | 2020-11-13 07:14 | PUCC_ITS ---
General Date of Service Date of service: 11/13/20 Time of Service: 07:30 Reason for Admission to ICU: Gram negative sepsis Assessment and Plan Assessment and plan (1) Acute respiratory failure with hypoxia: Status: Acute (2) Gram negative sepsis: Status: Acute (3) CAP (community acquired pneumonia): Status: Acute Qualifiers: Laterality: unspecified laterality Qualified Code(s): J18.9 - Pneumonia, unspecified organism (4) Acute on chronic systolic CHF (congestive heart failure): Status: Acute (5) Acute kidney injury superimposed on chronic kidney disease: Status: Acute (6) Acute adrenal insufficiency: Status: Acute (7) Atrial fibrillation with RVR: Status: Resolved (8) Adrenal insufficiency: Status: Acute (9) Shock circulatory: Status: Acute Assessment and plan: This is a 80-year-old female who is admitted to the ICU with mixed septic and cardiogenic shock. I have a suspicion that the patient developed a pneumonia as an outpatient which triggered her A. fib with RVR and ultimately resulted in a CHF exacerbation leading to shock. The patient does not appear to be toxic so I suspect the majority of her shock is related to a cardiogenic cause (arrhythmia and heart failure). She was requiring approximately 7 mcg of Levophed to maintain maps at the time of my assessment. She had not had significant urine output overnight and so I have concerns about a cardiorenal syndrome on top of her chronic kidney disease. She was on a Lasix drip overnight however I do not think the dose was substantial enough given her renal function to promote a significant amount of diuresis. Switching her to an agent such as dobutamine will help with her cardiac output, and drop her afterload which hopefully will increase blood delivery to her kidneys. The bacteremia is concerning particularly given her cardiac hardware. She will be getting an echocardiogram today to assess for seeding of her wires. We will also wait for speciation of her cultures. If there is any concern for wire seeding she will have to be transferred to tertiary care center, she received all of her cardiac care at [facility] thus far so she should be transferred there if needed. Recommendations Pulmonary: Acute hypoxic respiratory failure - in the setting of likely over resuscitation with an EF of 33% - she is positive 6L during her hospital stay - continue O2 supplementation to maintain sats >90% Bilateral pleural effusions - likely transudative from volume overload state - no indication for thoracentesis at the moment, but if her respiratory status worsens,, I will have a low threshold to tap her Cardiac: Mixed cardiogenic and distributive shock - continue levophed as needed to maintain MAP >65, but plan to wean once dobutamine is started - start dobutamine drip - Lasix drip has been unaffective, recommend discontinuing - recommend Lasix boluses as needed - fluid restriction - TTE today - recommend discontinuing metoprolol while on vasopressors - no need to continue trending essentially normal lactate unless there is a clinical change - agree with stress dose steroids Afib with RVR - ok to transition to PO amiodarone today - would avoid beta blockade while on pressors - monitor HR while on dobutamine as it is arrythmogenic - if HR increases consistenyly >130, can consider amio bolus or digoxin - agree with heparin gtt HFrEF - prior TTE in 2019 shows EF 33% - avoid any further fluid resuscitation - if hypotensive she needs more pressor, not fluid - fluid restriction 2L Renal: Acute on Chronic kidney disease - recommend discontinuing Lasix drip - Lasix bolus to achieve net negative 500cc to 1L - her blood pressure should improve with continued diuresis - goal minimum UOP 30cc/hr I&O: Intake & Output 11/10/20 11/11/20 11/12/20 11/13/20 23:59 23:59 23:59 23:59 Intake Total 2023.293 / 2023.293 3698.735 / 3698.735 1747.090 / 9199.775 5784.070 / 1110.070 Output Total 412 / 412 1650 / 1650 317 / 317 425 / 425 Balance 1612.293 / 4980.868 0733.735 / 2048.735 1430.090 / 1430.090 685.070 / 685.070 Weight 67.5 kg 69.6 kg Daily Fluid Goal:: Negative 500 - 1L GI Nutrition: Diet with fluid and salt restriction Date of Last Bowel Movement: 11/12/20 Infectious Disease: Multilobar CAP - agree with broad spectrum coverage for now given bacteremia - recommend switching Zosyn to cefepime given renal injury (since the patient in on vanc as well) - recommend urine antigens for strep pneumo and legionella and sputum culture if able Bacteremia - one bottle GNR and one bottle GPC - await speciation - agree with repeat cultures today - await TTE results - low threshold to transfer for JUAN RAMON if GPC bacteremia is real Hematologic: Leukocytosis - likely due to sepsis and stress dose steroids Neurologic: No acute concerns Endocrine: Adrenal insufficiency - on chronic prednisone at 5mg daily - this can be discontinued while on stress dose steroids - on hydrocortisone 50mg q6h Lines: PIV - Levophed going through an AC 18G Prophylaxis: Protonix given stress dose steroids On heparin gtt given A.fib Code Status: Resuscitation Status DNR/DNI Subjective Critical and life-threatening events over the past 24 hours: This is a 80-year-old female who has cardiomyopathy, CKD, colostomy, on chronic prednisone for adrenal insufficiency and a significant cardiac history on Eliquis who was admitted from the ER after having her defibrillator fire several times. She was found to be in A. fib with RVR and so cardiology was consulted and started an amiodarone bolus and drip. Eliquis was stopped and she was put on a heparin drip. She developed fever which prompted blood cultures obtained and ultimately these returned positive with gram-negative rods and gram positive cocci. She underwent a CT of her chest abdomen and pelvis, unfortunately without contrast but a multifocal pneumonia with bilateral effusions were found. From a critical care standpoint she is being maintained on vancomycin, stress dose steroids, Lasix drip, ceftriaxone, and amiodarone. C/A/P CT 11/12/20 Mu;tifocal pneumonia, bilateral effusions. Calcified nodule on right. Noncontrasted CT so cannot rule out abscess. Exam Const General: no acute distress Nutritional Appearance: well nourished [facility] Head: normocephalic Ears: external ears normal General nose exam: nasal mucous membranes and turbinates normal Face and sinus: normal facial exam Mouth: oropharynx normal and moist mucous membranes Teeth and gingiva: dentition normal Eyes General: appearance normal, both eyes and all related structures Pupils: PERRL Neck Neck: normal visual inspection and no lymphadenopathy Chest Chest: normal inspection of the chest Resp Effort & Inspection: normal respiratory effort Auscultation: clear to auscultation bilaterally, diminished lung sounds (at bases) bilaterally, no rales, no rhonchi and no wheezes Cardio Rate: regular rate Rhythm: regular rhythm Heart Sounds: S1 normal, S2 normal and no murmurs Pulses: radial pulses present bilaterally GI Inspection: normal to inspection Palpation: soft Skin General skin exam: no rashes or lesions noted Neuro General: patient alert, patient awake and patient oriented x3 Extrem General: no clubbing, cyanosis or edema Psych Mental Status: mental status grossly normal Affect: normal affect Attitude: cooperative Most Recent VS/Results Last Vital Signs Temp 35.7 C L 11/12/20 19:55 Pulse 70 11/13/20 07:00 Resp 24 11/13/20 07:01 BP 123/64 11/13/20 07:00 Pulse Ox 97 11/13/20 07:01 Laboratory Results - last 24 hr 11/12/20 11/12/20 11/12/20 06:35 07:30 07:30 WBC 17.97 H D RBC 3.94 Hgb 12.0 Hct 38.1 D MCV 96.7 H MCH 30.5 MCHC 31.5 L RDW 13.2 Plt Count 239 MPV 10.6 Immature Gran % 0.5 Neutrophils % 73.9 Lymphocytes % 14.9 Monocytes % 10.3 Eosinophils % 0.2 Basophils % 0.2 Nucleated RBC % 0 Absolute Neutrophils 13.28 H Absolute Lymphocytes 2.68 Absolute Monocytes 1.85 H Absolute Eosinophils 0.04 Absolute Basophils 0.04 RBC Morphology Normal APTT 47.0 H VBG Lactate Sodium 136 Potassium 4.7 D Chloride 101 Carbon Dioxide 27.2 Anion Gap 7.8 BUN 31 H Creatinine 2.0 H Estimated GFR/1.73 m2 24.10 Glucose 162 H Calcium 8.9 Magnesium 2.3 Total Bilirubin Conjugated Bilirubin AST ALT Alkaline Phosphatase Troponin I 0.10 H* C-Reactive Protein Total Protein Albumin Urine Color Urine Clarity Urine pH Ur Specific [place] Urine Protein Urine Ketones Urine Blood Urine Nitrite Urine Bilirubin Urine Urobilinogen Ur Leukocyte Esterase Urine RBC Urine WBC Ur Epithelial Cells Urine Crystals Urine Bacteria Urine Casts Urine Mucus Urine Other Ur Culture Indicated? Urine Glucose 11/12/20 11/12/20 11/12/20 07:30 11:25 14:26 WBC RBC Hgb Hct MCV MCH MCHC RDW Plt Count MPV Immature Gran % Neutrophils % Lymphocytes % Monocytes % Eosinophils % Basophils % Nucleated RBC % Absolute Neutrophils Absolute Lymphocytes Absolute Monocytes Absolute Eosinophils Absolute Basophils RBC Morphology APTT VBG Lactate 1.3 Sodium Potassium Chloride Carbon Dioxide Anion Gap BUN Creatinine Estimated GFR/1.73 m2 Glucose Calcium Magnesium Total Bilirubin 0.4 Conjugated Bilirubin 0.2 AST 69 H ALT 61 H Alkaline Phosphatase 93 Troponin I C-Reactive Protein Total Protein 6.5 Albumin 3.0 L Urine Color Yellow Urine Clarity Sl Cloudy Urine pH 5.0 Ur Specific [place] >= 1.030 H Urine Protein 100 H Urine Ketones Negative Urine Blood Large H Urine Nitrite Negative Urine Bilirubin Negative Urine Urobilinogen 1.0 H Ur Leukocyte Esterase Negative Urine RBC 20-50 H Urine WBC 0-2 Ur Epithelial Cells Many Urine Crystals Negative Urine Bacteria Many Urine Casts 3-5 Hyaline Urine Mucus Trace Urine Other Few Transitional Ur Culture Indicated? C&S Done As Ordered Urine Glucose Negative 11/12/20 11/12/20 11/12/20 14:56 16:56 19:55 WBC RBC Hgb Hct MCV MCH MCHC RDW Plt Count MPV Immature Gran % Neutrophils % Lymphocytes % Monocytes % Eosinophils % Basophils % Nucleated RBC % Absolute Neutrophils Absolute Lymphocytes Absolute Monocytes Absolute Eosinophils Absolute Basophils RBC Morphology APTT VBG Lactate 1.6 H 1.5 H Sodium Potassium Chloride Carbon Dioxide Anion Gap BUN Creatinine Estimated GFR/1.73 m2 Glucose Calcium Magnesium Total Bilirubin Conjugated Bilirubin AST ALT Alkaline Phosphatase Troponin I C-Reactive Protein > 25.00 H Total Protein Albumin Urine Color Urine Clarity Urine pH Ur Specific [place] Urine Protein Urine Ketones Urine Blood Urine Nitrite Urine Bilirubin Urine Urobilinogen Ur Leukocyte Esterase Urine RBC Urine WBC Ur Epithelial Cells Urine Crystals Urine Bacteria Urine Casts Urine Mucus Urine Other Ur Culture Indicated? Urine Glucose Review of Systems All systems reviewed & are unremarkable except as noted in HPI and below Constitutional Constitutional: Reports fever(s) and Reports malaise Cardiovascular Cardiovascular: Denies leg edema, Reports dyspnea and Reports orthopnea Respiratory Respiratory: Reports dyspnea Musculoskeletal Musculoskeletal: Reports back pain (Left shoulder pain)
[2020-11-13 07:43] LABS: Absolute Basophil Count 0.04 10^3/uL (0.0-0.2); Absolute Monocyte Count 1.05 10^3/uL (0.1-0.8); Absolute Neutrophil Count 19.44 10^3/uL (1.2-6.7); Basophils % 0.2; HCT 36.1 % (36.0-46.0); HGB 11.6 g/dL (11.2-15.7); Immature Grans % 0.5; Lymphocytes % 3.7; MCH 30.6 pg (27.0-33.0); MCHC 32.1 % (32.0-36.0); MCV 95.3 fL (80-95); MPV 12.1 fL (8.0-11.0); Monocytes % 4.9; Neutrophils % 90.7; Nucleated RBC 0 %; Platelet Count 227 10^3/uL (130-400); RBC 3.79 10^6/uL (3.93-5.22); RDW 13.3 % (11.7-14.6); RDW-SD 47.1 fL; WBC 21.43 10^3/uL (4.4-10.8)
[2020-11-13 07:44] LABS: Absolute Lymphocyte Count 0.79 10^3/uL (1.2-3.4)
[2020-11-13 07:58] LABS: PTT Activated 147.8 sec (21.0-27.5)
--- NOTE | 2020-11-13 08:03 | PGE_ITS ---
Subjective Subjective Interval history since last seen: Afebrile. Hypotensive overnight, not tolerating any dose of amiodarone. Ended up being put on levophed overnight, only tolerating amiodarone this way. Being initiated on dobutamine. Lasix gtt is off. HR in upper 40s. SB/paced. No Afib overnight. Amiodarone on 0.5 mg/min. Stopping amiodarone. UOP: 100 cc in 8 hrs. 3L - sats 96-98%. Feels ok. Blood cultures repeated this morning. Specifically, we are concerned because blood cultures from yesterday have discordant results - GNR, GPCs. Spirits good. Awaiting echo. Objective Last Vital Signs Temp 35.7 C L 11/12/20 19:55 Pulse 70 11/13/20 07:00 Resp 24 11/13/20 07:01 BP 123/64 11/13/20 07:00 Pulse Ox 97 11/13/20 07:01 Laboratory Results - last 24 hr 11/12/20 11/12/20 11/12/20 07:30 07:30 07:30 WBC RBC Hgb Hct MCV MCH MCHC RDW Plt Count MPV Immature Gran % Neutrophils % Lymphocytes % Monocytes % Eosinophils % Basophils % Nucleated RBC % Absolute Neutrophils Absolute Lymphocytes Absolute Monocytes Absolute Eosinophils Absolute Basophils ESR APTT 47.0 H VBG Lactate Sodium 136 Potassium 4.7 D Chloride 101 Carbon Dioxide 27.2 Anion Gap 7.8 BUN 31 H Creatinine 2.0 H Estimated GFR/1.73 m2 24.10 Glucose 162 H Calcium 8.9 Magnesium 2.3 Total Bilirubin 0.4 Conjugated Bilirubin 0.2 AST 69 H ALT 61 H Alkaline Phosphatase 93 Troponin I 0.10 H* C-Reactive Protein Total Protein 6.5 Albumin 3.0 L Urine Color Urine Clarity Urine pH Ur Specific [place] Urine Protein Urine Ketones Urine Blood Urine Nitrite Urine Bilirubin Urine Urobilinogen Ur Leukocyte Esterase Urine RBC Urine WBC Ur Epithelial Cells Urine Crystals Urine Bacteria Urine Casts Urine Mucus Urine Other Ur Culture Indicated? Urine Glucose 11/12/20 11/12/20 11/12/20 11:25 14:26 14:56 WBC RBC Hgb Hct MCV MCH MCHC RDW Plt Count MPV Immature Gran % Neutrophils % Lymphocytes % Monocytes % Eosinophils % Basophils % Nucleated RBC % Absolute Neutrophils Absolute Lymphocytes Absolute Monocytes Absolute Eosinophils Absolute Basophils ESR APTT VBG Lactate 1.3 Sodium Potassium Chloride Carbon Dioxide Anion Gap BUN Creatinine Estimated GFR/1.73 m2 Glucose Calcium Magnesium Total Bilirubin Conjugated Bilirubin AST ALT Alkaline Phosphatase Troponin I C-Reactive Protein > 25.00 H Total Protein Albumin Urine Color Yellow Urine Clarity Sl Cloudy Urine pH 5.0 Ur Specific [place] >= 1.030 H Urine Protein 100 H Urine Ketones Negative Urine Blood Large H Urine Nitrite Negative Urine Bilirubin Negative Urine Urobilinogen 1.0 H Ur Leukocyte Esterase Negative Urine RBC 20-50 H Urine WBC 0-2 Ur Epithelial Cells Many Urine Crystals Negative Urine Bacteria Many Urine Casts 3-5 Hyaline Urine Mucus Trace Urine Other Few Transitional Ur Culture Indicated? C&S Done As Ordered Urine Glucose Negative 11/12/20 11/12/20 11/13/20 16:56 19:55 06:30 WBC RBC Hgb Hct MCV MCH MCHC RDW Plt Count MPV Immature Gran % Neutrophils % Lymphocytes % Monocytes % Eosinophils % Basophils % Nucleated RBC % Absolute Neutrophils Absolute Lymphocytes Absolute Monocytes Absolute Eosinophils Absolute Basophils ESR 48 H APTT VBG Lactate 1.6 H 1.5 H Sodium Potassium Chloride Carbon Dioxide Anion Gap BUN Creatinine Estimated GFR/1.73 m2 Glucose Calcium Magnesium Total Bilirubin Conjugated Bilirubin AST ALT Alkaline Phosphatase Troponin I C-Reactive Protein Total Protein Albumin Urine Color Urine Clarity Urine pH Ur Specific [place] Urine Protein Urine Ketones Urine Blood Urine Nitrite Urine Bilirubin Urine Urobilinogen Ur Leukocyte Esterase Urine RBC Urine WBC Ur Epithelial Cells Urine Crystals Urine Bacteria Urine Casts Urine Mucus Urine Other Ur Culture Indicated? Urine Glucose 11/13/20 11/13/20 06:30 06:30 WBC 21.43 H RBC 3.79 L Hgb 11.6 Hct 36.1 MCV 95.3 H MCH 30.6 MCHC 32.1 RDW 13.3 Plt Count 227 MPV 12.1 H Immature Gran % 0.5 Neutrophils % 90.7 Lymphocytes % 3.7 Monocytes % 4.9 Eosinophils % 0.0 Basophils % 0.2 Nucleated RBC % 0 Absolute Neutrophils 19.44 H Absolute Lymphocytes 0.79 L Absolute Monocytes 1.05 H Absolute Eosinophils 0.00 Absolute Basophils 0.04 ESR APTT 147.8 H* VBG Lactate Sodium Potassium Chloride Carbon Dioxide Anion Gap BUN Creatinine Estimated GFR/1.73 m2 Glucose Calcium Magnesium Total Bilirubin Conjugated Bilirubin AST ALT Alkaline Phosphatase Troponin I C-Reactive Protein Total Protein Albumin Urine Color Urine Clarity Urine pH Ur Specific [place] Urine Protein Urine Ketones Urine Blood Urine Nitrite Urine Bilirubin Urine Urobilinogen Ur Leukocyte Esterase Urine RBC Urine WBC Ur Epithelial Cells Urine Crystals Urine Bacteria Urine Casts Urine Mucus Urine Other Ur Culture Indicated? Urine Glucose
[2020-11-13] MEDS: DOBUTamine 500 MG/250 ML BAG 5.22 MG IV (08:20)
[2020-11-13] MEDS: DOBUTamine 500 MG/250 ML BAG 10.4 MG IV (08:20)
[2020-11-13 08:24] LABS: Lactate 1.5 mmol/L (0.6-1.4)
[2020-11-13 08:43] LABS: PTT Activated 46.3 sec (21.0-27.5)
[2020-11-13 08:46] LABS: ALT 916 U/L (14-59); Albumin 2.8 g/dL (3.4-5.0); Alkaline Phosphatase 86 U/L (46-116); Anion Gap 14.3 mmol/L (3-11); BUN 48 mg/dL (7-18); Bilirubin, Direct 0.2 mg/dL (0.0-0.2); Bilirubin, Total 0.4 mg/dL (0.2-1.0); CO2 21.7 mmol/L (21.0-32.0); CREATININE 2.9 mg/dL (0.55-1.02); Calcium 8.5 mg/dL (8.5-10.1); Chloride 100 mmol/L (98-107); Estimated GFR 15.69 (mL/min/1.73m2); Glucose 124 mg/dL (74-106); Magnesium 2.1 mg/dL (1.8-2.4); Potassium 4.2 mmol/L (3.5-5.1); Sodium 136 mmol/L (136-145); TSH 1.03 uIU/mL (0.36-3.74)
[2020-11-13 08:47] LABS: C-Reactive Protein > 25.00 mg/dL (0.0-0.3)
[2020-11-13 08:49] LABS: AST 680 U/L (15-37)
[2020-11-13] MEDS: Metoprolol 5 MG/5 ML VIAL 2.5 MG IVP (09:08)
[2020-11-13] MEDS: Normal Saline Flush 10 ML SYR IVP ×2 (09:15→17:42)
[2020-11-13] MEDS: Docusate Sodium 100 MG CAP PO (09:16)
[2020-11-13] MEDS: Ezetimibe 10 MG TAB PO (09:16)
[2020-11-13] MEDS: Metoprolol 12.5 MG TAB PO (09:16)
[2020-11-13] MEDS: Pantoprazole 40 MG VIAL IVP (09:16)
[2020-11-13] MEDS: Diclofenac 1% Gel 100 GM TUBE TP ×3 (09:25→16:21)
[2020-11-13] MEDS: PIPERACILLIN/TAZO 2.25 GM in Normal Saline 50 ML IVPB ×2 (09:54→16:21)
--- NOTE | 2020-11-13 10:08 | INITIAL_ITS ---
- If Service Date Differs Date of service: 11/13/20 Time of Service: 10:08 Care Management Initial Assess REASON FOR HOSPITALIZATION:: Afib with RVR PAST MEDICAL HISTORY/PAST SURGICAL HISTORY:: Medical History . Cardiomyopathy (08/04/08). Idiopathic witn normal coronary arteries 2008. 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 EF <30%. Kidney disease. CHRONIC. Knee pain (01/24/12). RIGHT KNEE PAIN S/P TKR 2012. 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 Seborrheic keratoses. Surgical History . Appendectomy (~1972). Cholecystectomy. herniography. x 2. Replacement of total knee joint PREVIOUS FUNCTIONAL STATUS/SOCIAL/FAMILY SUPPORTS:: Indira lives in [place], [place] with her daughter Rebekah. She has 5 other children, all of them sons and they live in various parts of the country. Indira also has 17 grandchildren and 24 great grandchildren. She is independent at baseline and receives no services. CURRENT FUNCTIONAL STATUS:: Indira was sitting up in bed visiting with her daughter Rebekah. She was waiting to be transferred to [facility], which was suppposed to take place this afternoon. ADVANCE DIRECTIVES:: COLST - DNR/DNI Has patient been provided with info about the portal/API?: Yes Did the patient sign up for the portal?: Yes (previously) CODE STATUS:: DNR/DNI INSURANCE COVERAGE / FINANCIAL ISSUES:: Medicare. [employer] PRIMARY CARE PHYSICIAN:: Leny Li POTENTIAL DISCHARGE NEEDS:: Follow up with PCP and plan of care PATIENT/FAMILY EDUCATION NEEDS:: Review of discharge instructions, medications, follow up plan, activity, limitations, Ask Me Three TRANSPORTATION:: via ambulance coordinated by nursing supervisor research kennel PLAN:: Indira is being transferred to [facility] this afternoon. She will follow up with their providers and plan of care. Indira will transport via ambulance coordinated by nursing supervisor research kennel.
--- NOTE | 2020-11-13 10:15 | CCONE_ITS ---
Date of service: 11/13/20 Time of Service: 10:16 Assessment and Plan Assessment and plan (1) Shock circulatory: Status: Acute Assessment and plan: 1. Shock: Likely septic in nature given the positive blood cultures and fever. She endorses some sweating overnight. I suspect her A. fib as a result of the shock rather than a cause. ?Agree with norepinephrine with a goal map of 65. ?She does have a decreased ejection fraction so dobutamine may be of some use but this tends to peripherally dilate which can be counterproductive in septic shock 2. A. fib with RVR: Now on amiodarone drip. Agree with continuing amiodarone. Multiple EKGs and confirmed an irregular wide-complex tachycardia consistent with A. fib and her underlying bundle branch block. In regards to her pacemaker, okay to continue to leave the magnet on there for now. Her upper rate is 188 at which time the ICD may fire if it thinks she is in VT (interpreting A. fib with RVR in the left bundle branch block SVT). We could consider going up on this rate to the low 200s but will leave it as it is for now. She also is coming to the end of her battery life on her ICD and will need to have that followed up with at [facility]. ?Continue IV amio for now ?Once patient recovers from likely septic shock would consider reinitiation of beta-blockade. 3. Cardiomyopathy: She has a history of cardiomyopathy but is not grossly overloaded on exam today. I would be careful however with not tipping her over with a fluid balance. This is especially true when she is out of the acute shock phase as she will likely need diuresis at that point. History of Present Illness Narrative: This is a follow-up note on Ms. Nichols is a 80-year-old female with past medical history significant for dilated cardiomyopathy (LVEF of 32%) chronic left bundle branch block status post FLAT IRONER-D and a history of A. fib previously on amio who presents now after being shocked at home multiple times. Over the weekend she continued to go in and out of A. fib with RVR. She is now had multiple positive blood cultures and is on broad-spectrum antibiotics. Unfortunately her creatinine continues to rise as do her LFTs suggesting the development of shock. She remains in good spirits this morning but is noticeably more tired than when I last spoke with her. She has been treated with both norepi and dobutamine in order to help maintain her maps. 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 Heart disease Father , 62 Heart disease Stroke Bleeding ulcer Sister Heart disease CHF Ovarian cancer Sister , 72 CHF (congestive heart failure) Sister Diabetes Depression Stroke Brother Hyperlipidemia Colon cancer Brother Colon cancer Brother , HEART PROBLEMS at age 81. Heart disease CHF (congestive heart failure) Hypertension Maternal Grandfather , reaction to aspirin at age 71. Asthma Paternal Grandfather , age 84 Heart disease [place] Maternal Grandmother , Ruptured appendix at age 63. Ruptured appendix Paternal Grandmother , Infection s/p surgery at age 44. No problems noted. Son Essential hypertension Hyperlipidemia Son Essential hypertension Hyperlipidemia Parkinson disease Son Essential hypertension Hyperlipidemia Son No problems noted. Son Myocardial infarction Daughter No problems noted. Social History Smoking/Tobacco Use Status: Never Smoking risk assessment performed?: Yes Alcohol Intake: never Drug use: Never Substance use type: does not use Caregiver/Support person: No Household members: children Housing: house Communication Needs: Corrective Lenses Do you need help understanding health information?: Rarely Pets and animals: No Sexually active: No Do you think of yourself as: straight/heterosexual Current gender identity: female What is your relationship status?: How often do you talk on the phone with friends or family?: three or more times per week How often do you get together with friends or relatives?: twice per week How often do you attend adventist or lutheran services?: 4 or more times per year Panel score (0-1 are the most socially isolated patients): 2 What type of physical activity do you participate in: weight lifting Duration: < 15 minutes/day Frequency: 3-4 times per week Geri/Mosque: Yarsanism Special geri needs: No Seatbelt use: always Helmet use: No Drive intox or ride w/intox chassis driver: No Do you feel safe at home: Yes Do you feel safe in your relationship?: Yes Additional Social history: lives with friend daughter nearby Exam Const General: comfortable and no acute distress HENMT Head: normocephalic and atraumatic Eyes General: appearance normal, both eyes and all related structures Resp Effort & Inspection: normal respiratory effort Auscultation: clear to auscultation bilaterally Cardio Jugular venous pressure: no JVD Palpation: normal PMI Rate: tachycardic Rhythm: abnormal rhythm Heart Sounds: S1 normal and murmur systolic holo and II/ GI Palpation: soft Auscultation: normoactive bowel sounds Skin General skin exam: no rashes or lesions noted Extrem General: normal to inspection and no clubbing, cyanosis or edema Psych Appearance: grossly normal Results Last Vital Signs Temp 35.7 C L 11/12/20 19:55 Pulse 93 H 11/13/20 09:17 Resp 25 H 11/13/20 09:17 BP 124/81 11/13/20 09:17 Pulse Ox 95 11/13/20 09:17 Labs Result diagrams: 11/13/20 06:30 11/13/20 07:55 Labs: Laboratory Results - last 24 hr 11/12/20 11/12/20 11/12/20 07:30 11:25 14:26 WBC RBC Hgb Hct MCV MCH MCHC RDW Plt Count MPV Immature Gran % Neutrophils % Lymphocytes % Monocytes % Eosinophils % Basophils % Nucleated RBC % Absolute Neutrophils Absolute Lymphocytes Absolute Monocytes Absolute Eosinophils Absolute Basophils ESR APTT VBG Lactate 1.3 Sodium Potassium Chloride Carbon Dioxide Anion Gap BUN Creatinine Estimated GFR/1.73 m2 Glucose Calcium Magnesium Total Bilirubin 0.4 Conjugated Bilirubin 0.2 AST 69 H ALT 61 H Alkaline Phosphatase 93 C-Reactive Protein Total Protein 6.5 Albumin 3.0 L TSH Urine Color Yellow Urine Clarity Sl Cloudy Urine pH 5.0 Ur Specific [place] >= 1.030 H Urine Protein 100 H Urine Ketones Negative Urine Blood Large H Urine Nitrite Negative Urine Bilirubin Negative Urine Urobilinogen 1.0 H Ur Leukocyte Esterase Negative Urine RBC 20-50 H Urine WBC 0-2 Ur Epithelial Cells Many Urine Crystals Negative Urine Bacteria Many Urine Casts 3-5 Hyaline Urine Mucus Trace Urine Other Few Transitional Ur Culture Indicated? C&S Done As Ordered Urine Glucose Negative 11/12/20 11/12/20 11/12/20 14:56 16:56 19:55 WBC RBC Hgb Hct MCV MCH MCHC RDW Plt Count MPV Immature Gran % Neutrophils % Lymphocytes % Monocytes % Eosinophils % Basophils % Nucleated RBC % Absolute Neutrophils Absolute Lymphocytes Absolute Monocytes Absolute Eosinophils Absolute Basophils ESR APTT VBG Lactate 1.6 H 1.5 H Sodium Potassium Chloride Carbon Dioxide Anion Gap BUN Creatinine Estimated GFR/1.73 m2 Glucose Calcium Magnesium Total Bilirubin Conjugated Bilirubin AST ALT Alkaline Phosphatase C-Reactive Protein > 25.00 H Total Protein Albumin TSH Urine Color Urine Clarity Urine pH Ur Specific [place] Urine Protein Urine Ketones Urine Blood Urine Nitrite Urine Bilirubin Urine Urobilinogen Ur Leukocyte Esterase Urine RBC Urine WBC Ur Epithelial Cells Urine Crystals Urine Bacteria Urine Casts Urine Mucus Urine Other Ur Culture Indicated? Urine Glucose 11/13/20 11/13/20 11/13/20 06:30 06:30 06:30 WBC RBC Hgb Hct MCV MCH MCHC RDW Plt Count MPV Immature Gran % Neutrophils % Lymphocytes % Monocytes % Eosinophils % Basophils % Nucleated RBC % Absolute Neutrophils Absolute Lymphocytes Absolute Monocytes Absolute Eosinophils Absolute Basophils ESR 48 H APTT VBG Lactate Sodium Cancelled Potassium Cancelled Chloride Cancelled Carbon Dioxide Cancelled Anion Gap Cancelled BUN Cancelled Creatinine Cancelled Estimated GFR/1.73 m2 Cancelled Glucose Cancelled Calcium Cancelled Magnesium Cancelled Total Bilirubin Cancelled Conjugated Bilirubin Cancelled AST Cancelled ALT Cancelled Alkaline Phosphatase Cancelled C-Reactive Protein Cancelled Total Protein Cancelled Albumin Cancelled TSH Urine Color Urine Clarity Urine pH Ur Specific [place] Urine Protein Urine Ketones Urine Blood Urine Nitrite Urine Bilirubin Urine Urobilinogen Ur Leukocyte Esterase Urine RBC Urine WBC Ur Epithelial Cells Urine Crystals Urine Bacteria Urine Casts Urine Mucus Urine Other Ur Culture Indicated? Urine Glucose 11/13/20 11/13/20 11/13/20 06:30 06:30 07:55 WBC 21.43 H RBC 3.79 L Hgb 11.6 Hct 36.1 MCV 95.3 H MCH 30.6 MCHC 32.1 RDW 13.3 Plt Count 227 MPV 12.1 H Immature Gran % 0.5 Neutrophils % 90.7 Lymphocytes % 3.7 Monocytes % 4.9 Eosinophils % 0.0 Basophils % 0.2 Nucleated RBC % 0 Absolute Neutrophils 19.44 H Absolute Lymphocytes 0.79 L Absolute Monocytes 1.05 H Absolute Eosinophils 0.00 Absolute Basophils 0.04 ESR APTT 147.8 H* VBG Lactate Sodium 136 Potassium 4.2 Chloride 100 Carbon Dioxide 21.7 Anion Gap 14.3 H BUN 48 H D Creatinine 2.9 H D Estimated GFR/1.73 m2 15.69 Glucose 124 H Calcium 8.5 Magnesium 2.1 Total Bilirubin 0.4 Conjugated Bilirubin 0.2 AST 680 H ALT 916 H Alkaline Phosphatase 86 C-Reactive Protein > 25.00 H Total Protein 6.0 L Albumin 2.8 L TSH 1.03 Urine Color Urine Clarity Urine pH Ur Specific [place] Urine Protein Urine Ketones Urine Blood Urine Nitrite Urine Bilirubin Urine Urobilinogen Ur Leukocyte Esterase Urine RBC Urine WBC Ur Epithelial Cells Urine Crystals Urine Bacteria Urine Casts Urine Mucus Urine Other Ur Culture Indicated? Urine Glucose 11/13/20 11/13/20 07:55 08:15 WBC RBC Hgb Hct MCV MCH MCHC RDW Plt Count MPV Immature Gran % Neutrophils % Lymphocytes % Monocytes % Eosinophils % Basophils % Nucleated RBC % Absolute Neutrophils Absolute Lymphocytes Absolute Monocytes Absolute Eosinophils Absolute Basophils ESR APTT 46.3 H D VBG Lactate 1.5 H Sodium Potassium Chloride Carbon Dioxide Anion Gap BUN Creatinine Estimated GFR/1.73 m2 Glucose Calcium Magnesium Total Bilirubin Conjugated Bilirubin AST ALT Alkaline Phosphatase C-Reactive Protein Total Protein Albumin TSH Urine Color Urine Clarity Urine pH Ur Specific [place] Urine Protein Urine Ketones Urine Blood Urine Nitrite Urine Bilirubin Urine Urobilinogen Ur Leukocyte Esterase Urine RBC Urine WBC Ur Epithelial Cells Urine Crystals Urine Bacteria Urine Casts Urine Mucus Urine Other Ur Culture Indicated? Urine Glucose
--- NOTE | 2020-11-13 10:48 | W.ORTHOCONSU ---
Date of service: 11/13/20 Time of Service: 12:14 History of Present Illness History of Present Illness Chief Complaint: Left Shoulder Pain Narrative: Indira is a 80-year-old female who presented initially to the emergency department with overall malaise and lack of appetite after also experiencing her defibrillator firing 4 times on the morning of presentation. She has known atrial fibrillation and in the emergency department she was found to have increasing troponins and a wide-complex tachycardia. She was admitted to the hospital for evaluation and was also discovered to have positive blood cultures growing gram-negative rods as well as what appears to be an active pneumonia. During her admission she has had continued difficulty with maintaining an adequate blood pressure while also controlling rate requiring an amiodarone drip as well as Levophed drip. She also has had worsening urine output as well as an increasing and rising creatinine. During this admission she had complained of some left shoulder pain. She reports years of off-and-on left shoulder pain. She has never had any significant treatments. She has pain over the anterolateral shoulder usually but currently the pain is mostly posterior, around the inferomedial border of the scapula. This has seemingly responded to some positioning changes and heat. Additionally she has a history of gout but never in the shoulder. Today, she feels the shoulder is better. No complaints of pain with positioning or moving the left shoulder in the bed. No numbness or tingling down the left arm. Some pain into the upper arm and some pain of the upper chest wall. Consults Consult date: 11/13/20 Requesting physician: Lissette Donahue Consult Reason Left shoulder pain, ?septic joint Assessment and Plan Assessment and plan (1) Left shoulder pain: Status: Chronic Assessment and plan: Indira is a 80-year-old who has left shoulder pain in the setting of sepsis. She has longstanding shoulder issues which are intermittent in nature and her x-ray does show calcific tendinitis. My suspicion is he simply has calcific tendinitis. All the other conservative options which have been done thus far are appropriate. An injection can sometimes be utilized to treat this but that would not be recommended in this situation. Given that she has good passive range of motion and some active range of motion without any significant pain, the likelihood of infection is quite low. Therefore, I would continue to follow with serial examinations. She does not need any other aspiration or imaging at this time unless examination changes. 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 Heart disease Father , 62 Heart disease Stroke Bleeding ulcer Sister Heart disease CHF Ovarian cancer Sister , 72 CHF (congestive heart failure) Sister Diabetes Depression Stroke Brother Hyperlipidemia Colon cancer Brother Colon cancer Brother , HEART PROBLEMS at age 81. Heart disease CHF (congestive heart failure) Hypertension Maternal Grandfather , reaction to aspirin at age 71. Asthma Paternal Grandfather , age 84 Heart disease [place] Maternal Grandmother , Ruptured appendix at age 63. Ruptured appendix Paternal Grandmother , Infection s/p surgery at age 44. No problems noted. Son Essential hypertension Hyperlipidemia Son Essential hypertension Hyperlipidemia Parkinson disease Son Essential hypertension Hyperlipidemia Son No problems noted. Son Myocardial infarction Daughter No problems noted. Social History Smoking/Tobacco Use Status: Never Smoking risk assessment performed?: Yes Alcohol Intake: never Drug use: Never Substance use type: does not use Caregiver/Support person: No Household members: children Housing: house Communication Needs: Corrective Lenses Do you need help understanding health information?: Rarely Pets and animals: No Sexually active: No Do you think of yourself as: straight/heterosexual Current gender identity: female What is your relationship status?: How often do you talk on the phone with friends or family?: three or more times per week How often do you get together with friends or relatives?: twice per week How often do you attend denominational or yazidi services?: 4 or more times per year Panel score (0-1 are the most socially isolated patients): 2 What type of physical activity do you participate in: weight lifting Duration: < 15 minutes/day Frequency: 3-4 times per week Geri/Muslim: Sikhism Special geri needs: No Seatbelt use: always Helmet use: No Drive intox or ride w/intox bus driver: No Do you feel safe at home: Yes Do you feel safe in your relationship?: Yes Additional Social history: lives with friend daughter nearby Exam Narrative Exam Narrative: Indira is laying in the hospital bed. She is somewhat on the right side. Evaluation the left shoulder does not show any significant swelling. No erythema. No warmth. The magnet of her pacemaker is located almost directly over the coracoid process. There is no significant pain with deep palpation of the left shoulder. I can palpate no effusion of the left shoulder and there is a good examination of the left shoulder with a significant fat. Passive range of motion left shoulder is actually quite benign. Unable to actively abduct the arm proximal and 100 degrees and forward flex the same. I also can actively externally rotate the left arm approximately 45 degrees. All this motion is without pain. Actively she is able to demonstrate active abduction and forward flexion to about 90 degrees with some mild pain around the shoulder, the scapula, and down the left arm towards the elbow. She does have pain to palpation over the inferior medial border of the left scapula. Results Last Vital Signs Temp 36.1 C L 11/13/20 07:30 Pulse 93 H 11/13/20 10:30 Resp 24 11/13/20 10:30 BP 124/97 H 11/13/20 10:30 Pulse Ox 95 11/13/20 10:30 Labs Result diagrams: 11/13/20 06:30 11/13/20 07:55 Labs: Laboratory Results - last 24 hr 11/12/20 11/12/20 11/12/20 07:30 11:25 14:26 WBC RBC Hgb Hct MCV MCH MCHC RDW Plt Count MPV Immature Gran % Neutrophils % Lymphocytes % Monocytes % Eosinophils % Basophils % Nucleated RBC % Absolute Neutrophils Absolute Lymphocytes Absolute Monocytes Absolute Eosinophils Absolute Basophils ESR APTT VBG Lactate 1.3 Sodium Potassium Chloride Carbon Dioxide Anion Gap BUN Creatinine Estimated GFR/1.73 m2 Glucose Calcium Magnesium Total Bilirubin 0.4 Conjugated Bilirubin 0.2 AST 69 H ALT 61 H Alkaline Phosphatase 93 C-Reactive Protein Total Protein 6.5 Albumin 3.0 L TSH Urine Color Yellow Urine Clarity Sl Cloudy Urine pH 5.0 Ur Specific [place] >= 1.030 H Urine Protein 100 H Urine Ketones Negative Urine Blood Large H Urine Nitrite Negative Urine Bilirubin Negative Urine Urobilinogen 1.0 H Ur Leukocyte Esterase Negative Urine RBC 20-50 H Urine WBC 0-2 Ur Epithelial Cells Many Urine Crystals Negative Urine Bacteria Many Urine Casts 3-5 Hyaline Urine Mucus Trace Urine Other Few Transitional Ur Culture Indicated? C&S Done As Ordered Urine Glucose Negative 11/12/20 11/12/20 11/12/20 14:56 16:56 19:55 WBC RBC Hgb Hct MCV MCH MCHC RDW Plt Count MPV Immature Gran % Neutrophils % Lymphocytes % Monocytes % Eosinophils % Basophils % Nucleated RBC % Absolute Neutrophils Absolute Lymphocytes Absolute Monocytes Absolute Eosinophils Absolute Basophils ESR APTT VBG Lactate 1.6 H 1.5 H Sodium Potassium Chloride Carbon Dioxide Anion Gap BUN Creatinine Estimated GFR/1.73 m2 Glucose Calcium Magnesium Total Bilirubin Conjugated Bilirubin AST ALT Alkaline Phosphatase C-Reactive Protein > 25.00 H Total Protein Albumin TSH Urine Color Urine Clarity Urine pH Ur Specific [place] Urine Protein Urine Ketones Urine Blood Urine Nitrite Urine Bilirubin Urine Urobilinogen Ur Leukocyte Esterase Urine RBC Urine WBC Ur Epithelial Cells Urine Crystals Urine Bacteria Urine Casts Urine Mucus Urine Other Ur Culture Indicated? Urine Glucose 11/13/20 11/13/20 11/13/20 06:30 06:30 06:30 WBC RBC Hgb Hct MCV MCH MCHC RDW Plt Count MPV Immature Gran % Neutrophils % Lymphocytes % Monocytes % Eosinophils % Basophils % Nucleated RBC % Absolute Neutrophils Absolute Lymphocytes Absolute Monocytes Absolute Eosinophils Absolute Basophils ESR 48 H APTT VBG Lactate Sodium Cancelled Potassium Cancelled Chloride Cancelled Carbon Dioxide Cancelled Anion Gap Cancelled BUN Cancelled Creatinine Cancelled Estimated GFR/1.73 m2 Cancelled Glucose Cancelled Calcium Cancelled Magnesium Cancelled Total Bilirubin Cancelled Conjugated Bilirubin Cancelled AST Cancelled ALT Cancelled Alkaline Phosphatase Cancelled C-Reactive Protein Cancelled Total Protein Cancelled Albumin Cancelled TSH Urine Color Urine Clarity Urine pH Ur Specific [place] Urine Protein Urine Ketones Urine Blood Urine Nitrite Urine Bilirubin Urine Urobilinogen Ur Leukocyte Esterase Urine RBC Urine WBC Ur Epithelial Cells Urine Crystals Urine Bacteria Urine Casts Urine Mucus Urine Other Ur Culture Indicated? Urine Glucose 11/13/20 11/13/20 11/13/20 06:30 06:30 07:55 WBC 21.43 H RBC 3.79 L Hgb 11.6 Hct 36.1 MCV 95.3 H MCH 30.6 MCHC 32.1 RDW 13.3 Plt Count 227 MPV 12.1 H Immature Gran % 0.5 Neutrophils % 90.7 Lymphocytes % 3.7 Monocytes % 4.9 Eosinophils % 0.0 Basophils % 0.2 Nucleated RBC % 0 Absolute Neutrophils 19.44 H Absolute Lymphocytes 0.79 L Absolute Monocytes 1.05 H Absolute Eosinophils 0.00 Absolute Basophils 0.04 ESR APTT 147.8 H* VBG Lactate Sodium 136 Potassium 4.2 Chloride 100 Carbon Dioxide 21.7 Anion Gap 14.3 H BUN 48 H D Creatinine 2.9 H D Estimated GFR/1.73 m2 15.69 Glucose 124 H Calcium 8.5 Magnesium 2.1 Total Bilirubin 0.4 Conjugated Bilirubin 0.2 AST 680 H ALT 916 H Alkaline Phosphatase 86 C-Reactive Protein > 25.00 H Total Protein 6.0 L Albumin 2.8 L TSH 1.03 Urine Color Urine Clarity Urine pH Ur Specific [place] Urine Protein Urine Ketones Urine Blood Urine Nitrite Urine Bilirubin Urine Urobilinogen Ur Leukocyte Esterase Urine RBC Urine WBC Ur Epithelial Cells Urine Crystals Urine Bacteria Urine Casts Urine Mucus Urine Other Ur Culture Indicated? Urine Glucose 11/13/20 11/13/20 07:55 08:15 WBC RBC Hgb Hct MCV MCH MCHC RDW Plt Count MPV Immature Gran % Neutrophils % Lymphocytes % Monocytes % Eosinophils % Basophils % Nucleated RBC % Absolute Neutrophils Absolute Lymphocytes Absolute Monocytes Absolute Eosinophils Absolute Basophils ESR APTT 46.3 H D VBG Lactate 1.5 H Sodium Potassium Chloride Carbon Dioxide Anion Gap BUN Creatinine Estimated GFR/1.73 m2 Glucose Calcium Magnesium Total Bilirubin Conjugated Bilirubin AST ALT Alkaline Phosphatase C-Reactive Protein Total Protein Albumin TSH Urine Color Urine Clarity Urine pH Ur Specific [place] Urine Protein Urine Ketones Urine Blood Urine Nitrite Urine Bilirubin Urine Urobilinogen Ur Leukocyte Esterase Urine RBC Urine WBC Ur Epithelial Cells Urine Crystals Urine Bacteria Urine Casts Urine Mucus Urine Other Ur Culture Indicated? Urine Glucose Imaging Imaging Studies: X-ray of the left shoulder is suboptimal. The pacemaker seem to be quite lateral and obscures visualization as well as position of the patient. However, this does show what appears to be some calcific tendinitis about the left shoulder. No significant arthritis. No suspicious lesions. No soft tissue masses. CT scan of the chest abdomen pelvis nearly captures the left shoulder. There is no effusion seen on the left shoulder on the CT scan. No other suspicious lesions are seen.
--- NOTE | 2020-11-13 11:00 | RT.EKG_ITS ---
APPROVED REPORT Exam: Resting ECG Reason for Exam: conversion Patient Location: I HR:86 bpm ECG Measurements Heart Rate 86 AXIS OR 168 P 153 QRSd 100 QRS 201 QT 420 T 147 QTc 502 Conclusion Atrial-sensed ventricular-paced rhythm...ventricular pacing tracks p-waves
[2020-11-13] MEDS: Furosemide 20 MG/2 ML VIAL IVP (11:02)
[2020-11-13 11:08] LABS: Creatine Kinase 34 U/L (26-192)
--- NOTE | 2020-11-13 13:12 | NUR.NOTE ---
0841 Multiple couplets and runs of 3-4 beats wide complex tachycardia starting at 0842. medications titrated, see mar. amiodarone restarted, see mar. 1048- wide complex tachycardia broke to SR/Paced rhythm. 1243 Several runs of wide complex tachycardia/SR paced. Dr. Donahue aware of all of the above.
--- NOTE | 2020-11-13 13:30 | DSE_ITS ---
Date of service: 11/13/20 Time of Service: 13:31 DS: Diagnosis Discharge Diagnosis (1) Sepsis: Status: Acute (2) Shock circulatory: Status: Acute Asessment and Plan: likely a combination of septic shock, cardiogenic shock, and/or effect of amiodarone (3) Bacteremia: Status: Acute Asessment and Plan: blood cx from 11/11/20: GNR, GPC in chains (4) AICD generator infection: Status: Suspected (5) Atrial fibrillation with RVR: Status: Resolved Asessment and Plan: wide complex (6) CAP (community acquired pneumonia): Status: Acute Asessment and Plan: ANTONIO pneumonia (7) AICD discharge: Status: Acute (8) Acute on chronic systolic CHF (congestive heart failure): Status: Acute (9) Acute kidney injury superimposed on chronic kidney disease: Status: Acute (10) Transaminitis: Status: Acute (11) Elevated troponin: Status: Acute (12) Acute adrenal insufficiency: Status: Acute (13) Cardiomyopathy: Status: Chronic (14) Presence of combination internal cardiac defibrillator (ICD) and pacemaker: Status: Acute (15) H/O total knee replacement: Status: Acute (16) Left shoulder pain: Status: Chronic (17) COVID-19 ruled out by laboratory testing: Status: Ruled-out Discharge Plan Disposition Patient Disposition: [facility] Condition: Critical Discharge Details Reason For Visit: AFIB with RVR, VTACH Admit Date/Time: 11/10/20 10:46 Admit Provider: Ryan Lugo Attending Provider: Ryan Lugo Primary Care Provider: [facility] Hospital Course Hospital Course: Ms Nichols is a 80 year old female with PMHx of NICMO (dilated cardiomyopathy)/chronic systolic CHF (EF 30%) s/p AICD, as well as CKD III, h/o gout on chronic prednisone, who is also s/p R TKR, who was admitted to [facility] ICU under the hospitalist service on 11/10/20 after her AICD fired 4 times, apparently confusing wide complex Afib for Vtach. The patient was started on amiodarone drip and a magnet was placed over her AICD per EP recommendations. She had evidence of mildly elevated troponin I (0.15) which went up to 0.24, then 0.21, 0.17, 0.08, felt to be due to demand ischemia vs reaction to AICD discharge. The patient did not have any further acute events on her first day in the hospital, but did spike a fever that night. UA/CXR were negative. The patient was not presenting with a localizing symptom to help locate the source of fever, and blood cultures were ordered. Meanwhile, the patient did have a run of wide- complex tachycardia (again, Afib) on the night of 11/11/20, which was treated with amiodarone puse of 150 mg, as well as with lopressor 5 mg IV. This did convert her to NSR, but unfortunately the blood pressures dropped, and the patient became symptomatic, requiring initiation of IVF. The patient became quickly fluid overloaded and now required oxygen. IVF were stopped and lasix initiated. Transfer to [facility] was sought at that time, but beds were unavailable at either. She was maintained on amiodarone drip, now at a dose of 1 mg/min, up from 0.5 mg/min, and oral metoprolol was initiated, per [facility] cardiology recommendations. On the morning of 11/12/20, one of the patient's blood culture bottles came back positive for GNR. She was empirically initiated on high dose ceftriaxone. Later that day another bottle came back positive for GPCs in chains. While it is likely that one of these blood cultures were contaminated, it is not currently clear which one.The patient was started on vancomycin. CT chest/abdomen/pelvis showed ANTONIO pneumonia and no other acute disease. There is a concern at this point as to whether her AICD is infected. Additionally, she also has a R TKR, which clinically does not appear infected, but could have gotten seeded with bacteremia. She was also started on IV hydrocortisone and low dose lasix drip as her urine output had decreased and she was clinically fluid overloaded. Overnight on 11/12-11/13/20, the patient became more hypotensive, and Beta blockade, lasix, and amiodarone drips had to be stopped. Levophed and soon after dobutamine were initiated. With this, UOP did improve as did the blood pressures, but the patient's heart rate also increased, and she went back into Afib, treated with IV lopressor 5 mg x 1. Amiodarone was transiently restarted, but had to be stopped when the patient's LFTs came back markedly elevated, possibly due to hepatotoxicity of amiodarone, and possibly due to shock liver/congestive hepatopathy. At this point, the patient appears to have a combination of cardiogenic and septic shock. Her ceftriaxone was changed to IV zosyn as she deteriorated since initiation of ceftriaxone, and vancomycin remains on board. There is a high suspicion that the Afib is being triggered by underlying infection, and AICD infection does need to be ruled out. The patient needs a higher level of care than our facility is able to provide as she needs a JUAN RAMON, probable explantation of AICD. Additionally, she does report pain in her L shoulder and septic joint is a possibility, but the patient, who is on heparin drip and not hemodynamically stable, was not felt safe to go down for CT of the shoulder today. She also does have a R TKR, which could have been seeded, but is not currently showing signs of infection. The patient was a ccepted in transfer by [facility] Cardiology to ICU under the care of Dr Montana. We appreciate the assistance of the [facility] clinical team and wish the patient well. The patient was seen in consultation by Dr Shannon (cardiology) and Dr Cardona (pulmonary/critical care) on this admission, who assisted with care of the patient. Total Critical Care Time 180 minutes. For list of inpatient medications, please, see MAR. The list below reflects her outpatient medications. Home Meds and New Rx's Prescriptions: No Action amoxicillin 500 mg capsule 2,000 mg PO PRN RF: 0 febuxostat 40 mg tablet 40 mg PO DAILY RF: 0 docusate sodium 100 mg tablet 100 mg PO DAILY RF: 0 Entresto 24-26 mg tablet 1 tab PO BID RF: 0 Shingrix (PF) 50 mcg/0.5 mL suspension for reconstitution 0.5 ml IM ONCE Qty: 1 RF: 0 metoprolol succinate 50 mg tablet extended release 24 hr 50 mg PO DAILY RF: 0 Eliquis 5 mg tablet 5 mg PO BID Qty: 180 RF: 4 ezetimibe [Zetia] 10 mg tablet 10 mg PO DAILY Qty: 90 RF: 4 spironolactone [Aldactone] 25 mg tablet 12.5 mg PO DAILY Qty: 90 RF: 1 furosemide [Lasix] 40 mg tablet 40 mg PO DAILY Qty: 90 RF: 3 acetaminophen [Tylenol] 325 MG tablet 975 mg PO PRN RF: 0 prednisone 5 mg tablet 5 mg PO DAILY Qty: 90 RF: 2 esomeprazole magnesium [Nexium] 40 mg capsule,delayed release(DR/EC) 40 mg PO DAILY Qty: 90 RF: 4 cholecalciferol (vitamin D3) [Vitamin D3] 2,000 unit Tablet 2,000 unit PO DAILY RF: 0 Discharge Instructions Activity:: bedrest, turn Q2H Diet:: As Tolerated Discharge Orders Discharge Orders: Discharge Order (Routine); Ordered 11/13/20 Ordered By: Lissette Donahue DS: Summary Time Spent with Patient providing and/or coordinating discharge services: Greater than 30 minutes Status at Discharge Functional status at discharge: bed bound Overall status at discharge: patient is not back to baseline Mental Status: mental status grossly normal Speech and Movement: speech and movement normal Mood: congruent mood Affect: normal affect Exam Narrative Exam Narrative: General: Very pleasant elderly female, A&Ox3, looks ill, not dyspneic/tachypneic HEENT: EOMI, MMM Heart: seemingly RRR, +JOHANNE Lungs: Decrease in rales at B bases Abdomen: soft, nontender, nondistended, + ostomy Extremities: trace edema BLE's; no effusion/redness/warms of L shoulder, but does have pain abduction or extension of LUE. Psych Mental Status: mental status grossly normal Speech and Movement: speech and movement normal Affect: normal affect DS: Data Vitals/I&O Vitals and I&O: Vital Signs Temperature 36.1 C L 11/13/20 12:33 Temperature Source Temporal Artery Scan 11/13/20 12:33 Pulse 91 H 11/13/20 13:00 Pulse 90 11/13/20 13:01 Respiratory Rate 26 H 11/13/20 13:01 Respiratory Effort Non-Labored 11/13/20 12:33 Respiratory Depth Normal 11/13/20 12:33 Respiratory Pattern Normal 11/13/20 12:33 Blood Pressure 110/45 L 11/13/20 13:00 Blood Pressure Mean 62 11/13/20 13:00 Blood Pressure Position Sitting 11/13/20 12:33 Pulse Oximetry 98 11/13/20 13:01 Oxygen Delivery Method Nasal Cannula 11/13/20 12:33 Oxygen Flow Rate 3 11/13/20 12:33 Fraction of Inspired Oxygen (FIO2) 4 11/12/20 16:17 Pain Level 0 11/13/20 12:33 Intake & Output 11/12/20 11/13/20 11/13/20 23:59 11:59 23:59 Intake Total 654.779 / 3580.245 6454.266 / 1478.990 9.724 / 1478.990 Output Total 117 / 317 498 / 648 150 / 648 Balance 537.779 / 1430.090 971.266 / 830.990 -140.276 / 830.990 Intake: IV 654.779 / 1297.090 889.266 / 898.990 9.724 / 898.990 Oral 580 / 580 Output: Urine 117 / 317 498 / 648 150 / 648 Other: Urine Color Yellow Yellow Urine Appearance Clear Comment strong odor noted minimal urine output Urine output increased over the last hour Data Completed and Pending Completed studies during hospitalization [Text1]: CXR 11/10/20: No evidence of acute process. CXR 11/11/20: There is a transvenous cardiac pacemaker in position. The heart is enlarged. There are suspected bilateral pleural effusions which were confirmed on CT on November 12. There is question of slight CHF. Appropriate follow-up studies requested. CT chest/abdomen/pelvis 11/12/20: Moderate-sized bilateral pleural effusions and cardiomegaly, suspect CHF. Probable multifocal pneumonia involving left upper lobe and both lung bases. No other significant acute findings. XR L shoulder 11/12/20: Exam is limited by positioning and overlying pacemaker. Degenerative changes. Labs on day of discharge: Labs from last 24 hours 11/13/20 11/13/20 11/13/20 08:15 07:55 07:55 WBC RBC Hgb Hct MCV MCH MCHC RDW Plt Count MPV Immature Gran % Neutrophils % Lymphocytes % Monocytes % Eosinophils % Basophils % Nucleated RBC % Absolute Neutrophils Absolute Lymphocytes Absolute Monocytes Absolute Eosinophils Absolute Basophils ESR APTT 46.3 H D VBG Lactate 1.5 H Sodium 136 Potassium 4.2 Chloride 100 Carbon Dioxide 21.7 Anion Gap 14.3 H BUN 48 H D Creatinine 2.9 H D Estimated GFR/1.73 m2 15.69 Glucose 124 H Calcium 8.5 Magnesium 2.1 Total Bilirubin 0.4 Conjugated Bilirubin 0.2 AST 680 H ALT 916 H Alkaline Phosphatase 86 Creatine Kinase 34 C-Reactive Protein > 25.00 H Total Protein 6.0 L Albumin 2.8 L TSH 1.03 11/13/20 11/13/20 11/13/20 06:30 06:30 06:30 WBC 21.43 H RBC 3.79 L Hgb 11.6 Hct 36.1 MCV 95.3 H MCH 30.6 MCHC 32.1 RDW 13.3 Plt Count 227 MPV 12.1 H Immature Gran % 0.5 Neutrophils % 90.7 Lymphocytes % 3.7 Monocytes % 4.9 Eosinophils % 0.0 Basophils % 0.2 Nucleated RBC % 0 Absolute Neutrophils 19.44 H Absolute Lymphocytes 0.79 L Absolute Monocytes 1.05 H Absolute Eosinophils 0.00 Absolute Basophils 0.04 ESR 48 H APTT 147.8 H* VBG Lactate Sodium Potassium Chloride Carbon Dioxide Anion Gap BUN Creatinine Estimated GFR/1.73 m2 Glucose Calcium Magnesium Total Bilirubin Conjugated Bilirubin AST ALT Alkaline Phosphatase Creatine Kinase C-Reactive Protein Total Protein Albumin TSH 11/13/20 11/13/20 11/12/20 06:30 06:30 19:55 WBC RBC Hgb Hct MCV MCH MCHC RDW Plt Count MPV Immature Gran % Neutrophils % Lymphocytes % Monocytes % Eosinophils % Basophils % Nucleated RBC % Absolute Neutrophils Absolute Lymphocytes Absolute Monocytes Absolute Eosinophils Absolute Basophils ESR APTT VBG Lactate 1.5 H Sodium Cancelled Potassium Cancelled Chloride Cancelled Carbon Dioxide Cancelled Anion Gap Cancelled BUN Cancelled Creatinine Cancelled Estimated GFR/1.73 m2 Cancelled Glucose Cancelled Calcium Cancelled Magnesium Cancelled Total Bilirubin Cancelled Conjugated Bilirubin Cancelled AST Cancelled ALT Cancelled Alkaline Phosphatase Cancelled Creatine Kinase C-Reactive Protein Cancelled Total Protein Cancelled Albumin Cancelled [facility] 11/12/20 11/12/20 11/12/20 16:56 14:56 14:26 WBC RBC Hgb Hct MCV MCH MCHC RDW Plt Count MPV Immature Gran % Neutrophils % Lymphocytes % Monocytes % Eosinophils % Basophils % Nucleated RBC % Absolute Neutrophils Absolute Lymphocytes Absolute Monocytes Absolute Eosinophils Absolute Basophils ESR APTT VBG Lactate 1.6 H 1.3 Sodium Potassium Chloride Carbon Dioxide Anion Gap BUN Creatinine Estimated GFR/1.73 m2 Glucose Calcium Magnesium Total Bilirubin Conjugated Bilirubin AST ALT Alkaline Phosphatase Creatine Kinase C-Reactive Protein > 25.00 H Total Protein Albumin TSH 11/13/20 07:30 Blood Blood Culture - Pending 11/13/20 06:30 Blood Blood Culture - Pending Preliminary micro results at discharge 11/11/20 09:05 Blood Culture - Preliminary Blood Gram Positive Cocci 11/12/20 11:25 Urine Culture - Preliminary Urine - Cath Gray Indwelling 11/13/20 07:30 Blood Culture - Pending Blood 11/13/20 06:30 Blood Culture - Pending Blood 11/11/20 08:52 Blood Culture - Preliminary Blood Gram Negative [facility] Medical History Cardiomyopathy (08/04/08) Idiopathic witn normal coronary arteries 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 Heart disease Father , 62 Heart disease Stroke Bleeding ulcer Sister Heart disease CHF Ovarian cancer Sister , 72 CHF (congestive heart failure) Sister Diabetes Depression Stroke Brother Hyperlipidemia Colon cancer Brother Colon cancer Brother , HEART PROBLEMS at age 81. Heart disease CHF (congestive heart failure) Hypertension Maternal Grandfather , reaction to aspirin at age 71. Asthma Paternal Grandfather , age 84 Heart disease [place] Maternal Grandmother , Ruptured appendix at age 63. Ruptured appendix Paternal Grandmother , Infection s/p surgery at age 44. No problems noted. Son Essential hypertension Hyperlipidemia Son Essential hypertension Hyperlipidemia Parkinson disease Son Essential hypertension Hyperlipidemia Son No problems noted. Son Myocardial infarction Daughter No problems noted. Social History Smoking/Tobacco Use Status: Never Smoking risk assessment performed?: Yes Alcohol Intake: never Drug use: Never Substance use type: does not use Caregiver/Support person: No Household members: children Housing: house Communication Needs: Corrective Lenses Do you need help understanding health information?: Rarely Pets and animals: No Sexually active: No Do you think of yourself as: straight/heterosexual Current gender identity: female What is your relationship status?: How often do you talk on the phone with friends or family?: three or more times per week How often do you get together with friends or relatives?: twice per week How often do you attend religious or adventist services?: 4 or more times per year Panel score (0-1 are the most socially isolated patients): 2 What type of physical activity do you participate in: weight lifting Duration: < 15 minutes/day Frequency: 3-4 times per week Geri/Bahai: Jainism Special geri needs: No Seatbelt use: always Helmet use: No Drive intox or ride w/intox 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
--- NOTE | 2020-11-13 14:00 | RT.EKG_ITS ---
APPROVED REPORT Exam: Resting ECG Reason for Exam: RHYTHM CHANGE Patient Location: I HR:154 bpm ECG Measurements Heart Rate 154 AXIS DC 92 P 158 QRSd 152 QRS -4 QT 334 T 161 QTc 536 Conclusion Afib with RVR. Underlying LBBB
--- NOTE | 2020-11-13 14:35 | CHAPLAIN ---
Indira had two visitors (daughters?) with her when I stopped in this afternoon. She was in bed. Indira told me that she knows that she is promised eternal life, but not here on [place], and that when we will all meet Saulo as circuit judge or savior, and that choice is ours to make. She said she is confident she knows where she is going. After a busy night, of having to call on the nurses a lot, she said, she has had a more comfortable day.
== END 2020-11-13 19:00 | disposition short-term general hospital (02) | DRG 280 ==
LOC: ER 11:31 → ICU 12:32
PROVIDERS: General Practice; Internal Medicine; Physician Assistant; Admitting Provider Family Medicine; Emergency Provider Student in an Organized Health Care Education/Training Program; PCP Nurse Practitioner; Visit Provider Family Medicine
DX: I21.A1 Myocardial infarction type 2 (principal); J96.01 Acute respiratory failure with hypoxia; A41.59 Other Gram-negative sepsis; J18.9 Pneumonia, unspecified organism; I50.23 Acute on chronic systolic (congestive) heart failure; R57.0 Cardiogenic shock; R65.21 Severe sepsis with septic shock; I42.0 Dilated cardiomyopathy; I47.2 Ventricular tachycardia; E27.49 Other adrenocortical insufficiency; N17.9 Acute kidney failure, unspecified; I48.91 Unspecified atrial fibrillation; I34.0 Nonrheumatic mitral (valve) insufficiency; N18.9 Chronic kidney disease, unspecified; I44.7 Left bundle-branch block, unspecified; Z20.822 Contact with and (suspected) exposure to COVID-19; Z95.810 Presence of automatic (implantable) cardiac defibrillator; I95.9 Hypotension, unspecified; E78.2 Mixed hyperlipidemia; R50.9 Fever, unspecified; Z66 Do not resuscitate; Z93.3 Colostomy status; M75.32 Calcific tendinitis of left shoulder; R74.01 Elevation of levels of liver transaminase levels
CPT/HCPCS: 36415; 71250; 80048; 80053; 80076; 82550; 85652; 87040; 87077; 87635; 93005; 96361; 96365; 96375; 99222; 99233; 99291; 71045; 73020; 74176; 81003; 81015; 83605; 83735; 83880; 84443; 84484; 85025; 85379; 85610; 85730; 86140; 87086; 87186; 93010; 94640; 99220; 99223; J1720; J1940; J1941; J2060; J2270; J2405; J2543; J3475; J3490; J7512; J7614

== ENCOUNTER → 2020-11-13 09:30 | Outpatient (BNVA) | payer MEDICARE, SELFPAY | PROVIDERS: PCP Nurse Practitioner; Referring Provider Nurse Practitioner; Visit Provider Internal Medicine Cardiovascular Disease | DX: R69 Illness, unspecified (principal) ==

== ENCOUNTER → 2020-12-06 14:10 | Outpatient (BNVA) | payer MEDICARE, SELFPAY | PROVIDERS: PCP Nurse Practitioner; Referring Provider Nurse Practitioner; Visit Provider Internal Medicine Cardiovascular Disease | DX: Z51.5 Encounter for palliative care (principal); Z95.810 Presence of automatic (implantable) cardiac defibrillator | CPT/HCPCS: 99024 ==